=== PATIENT | female | born 1950 | race Caucasian/White ===

== ENCOUNTER → 2016-09-11 | Outpatient (CLI) | payer MEDICARE, OTHER ==
[2016-09-11 14:25] LABS: Basophils # (A) 0.1 k/uL (0-0.2); Basophils % (A) 1 %; CH 28.5; CHCM 31.6; Eosinophils # (A) 0.3 k/uL (0-0.7); Eosinophils % (A) 3 %; HCT 44.4 % (34.0-46.0); HDW 2.35; HGB 14.1 gm/dL (11.4-16.0); Luc # (Auto) 0.15; Luc % (Auto) 2; Lymphocytes # (A) 2.5 k/uL (1.0-4.8); Lymphocytes % (A) 25 %; MCH 28.7 pg (25.0-35.0); MCHC 31.7 g/dL (31.0-37.0); MCV 90.6 fL (80.0-100.0); Monocytes # (A) 0.4 k/uL (0-1.0); Monocytes % (A) 4 %; Neutrophils # (A) 6.6 k/uL (1.3-7.7); Neutrophils % (A) 66 %; RDW 12.8 % (11.5-15.5); WBC 10.1 k/uL (3.8-10.6); WBC (Perox) 10.36
== END | disposition home or self-care (01) ==
LOC: LABPAT 13:43
PROVIDERS: ATTEND Obstetrics & Gynecology
DX: Z01.810 Encounter for preprocedural cardiovascular examination (principal); N95.0 Postmenopausal bleeding; I10 Essential (primary) hypertension
CPT/HCPCS: 85025; 93005

== ENCOUNTER → 2016-09-18 | Day surgery (SDC) | payer MEDICARE, OTHER ==
[2016-09-10 16:19] VITALS: BMI 49.5
[~2016-09-18] MED LIST: DEXAMETHASONE SOD PHOSPHATE 10 MG/ML 1 ML VIAL IV ONE; HYDROmorphone 1 MG/ML 1 ML SYRINGE IVP PRN; KETOROLAC 30 MG/ML 1 ML VIAL ONE; LACTATED RINGERS 1,000 ML IV ONE; LACTATED RINGERS 1,000 ML IV SCH; LIDOCAINE 1% 20 ML VIAL (10MG/ML) FOR IV START SQ ONE; LIDOCAINE 1% INJ 10MG/ML (20 ML MDV) ONE; MIDAZOLAM 2 MG/2 ML VIAL IV PRN; MIDAZOLAM 2 MG/2 ML VIAL ONE; ONDANSETRON 4 MG/2 ML VIAL IVP ONE; PROPOFOL 10 MG/ML 20 ML VIAL IV ONE; Pre Op ABX Message 1 EACH MISC MISCELLANE ONE; SCOPOLAMINE 1.5MG/72HR PATCH TRANSDERM ONE; SUCCINYLCHOLINE CHLORIDE 100 MG/5 ML SYR IV ONE; fentaNYL (PF) 50 MCG/ML 2 ML AMP ONE
[2016-09-18 10:01] LABS: Glucose,Whole Blood 112 mg/dL (75-99)
--- NOTE | 2016-09-18 10:36 | P.OP ---
Date of Procedure: 09/18/16 Preoperative Diagnosis: Postmenopausal bleeding, multiple medical problems. Postoperative Diagnosis: Pathology pending, multiple endometrial polyps. Procedure(s) Performed: Hysteroscopy, fractional D&C Anesthesia: GETA Surgeon: Sravani Suazo Finance Effectiveness Manager #1: Stated None Estimated Blood Loss (ml): 10 IV fluids (ml): 500 Urine output (ml): 100 Pathology: other (Endometrial curettings, endocervical curettings.) Condition: stable Disposition: PACU Description of Procedure: Patient is brought to the operative suite where a general anesthetic is administered without difficulty. She's placed in the dorsal lithotomy position. General anesthetic is given without difficulty per the anesthesia staff. The cervix, vagina, perineum and periurethral areas are all prepped and draped in usual sterile fashion. The appropriate timeout is performed to assure proper patient and procedural identification. The bladder is drained for approximately 100 mL of clear yellow urine. Examination under anesthesia reveals a small anteverted uterus, negative adnexa bilaterally. Weighted speculum was placed into the vagina. The anterior lip of the cervix is grasped gently with an Allis clamp. Endocervical curettage is performed and sent to pathology under separate cover, for scant amount of tissue. Uterus is then sounded to a depth of 9 cm in the anteverted position. Cervix is gently and systematically dilated with Hanks dilators to 12 mm. Hysteroscope is then introduced, fluid is infused, cavity is distended. Upon inspecting the endometrial cavity, multiple small fleshy smooth polyps are noted. The hysteroscope was removed. The cervix is then dilated to 18 mm. A medium sharp curette is used and the polyps are removed and sent to pathology under separate cover for evaluation. Polyp forceps are introduced to assure no remaining tissue. Hysteroscope was once again placed, cavity is distended and inspected, and noted to be clear of all polyps and tissue. Instrumentation is removed from the vagina. Toradol is given prior to leaving the operative suite. All sponge needle and enhancement counts are correct. Patient is brought back to recovery room in very good condition with stable vital signs including blood pressure 112/49, pulse 55, 98% O2 saturation. Estimated blood loss 10 mL's. Patient will follow-up with me in the office in 2 weeks. She may resume her Coumadin therapy tomorrow.
[2016-09-18 10:50] VITALS: TEMP 96.8
[2016-09-18 11:00] LABS: Glucose,Whole Blood 122 mg/dL (75-99)
[2016-09-18 11:56] VITALS: RESP 16
[2016-09-18 12:36] VITALS: PULSE 77
[2016-09-18 12:38] VITALS: BP 120/75
== END ==
LOC: OR 08:19
PROVIDERS: ATTEND Obstetrics & Gynecology
DX: N85.00 Endometrial hyperplasia, unspecified (principal); I10 Essential (primary) hypertension; E66.01 Morbid (severe) obesity due to excess calories; Z68.43 Body mass index [BMI] 50.0-59.9, adult; J45.909 Unspecified asthma, uncomplicated; E11.9 Type 2 diabetes mellitus without complications; Z79.84 Long term (current) use of oral hypoglycemic drugs; E72.12 Methylenetetrahydrofolate reductase deficiency; Z79.01 Long term (current) use of anticoagulants; Z79.899 Other long term (current) drug therapy
CPT/HCPCS: 88305; 58558; J2250; J1100; J2405; J2001; J3010; J1885; J0330; J2704

== ENCOUNTER → 2016-11-05 | Outpatient (CLI) | payer MEDICARE, OTHER ==
--- NOTE | 2016-11-06 11:51 | MM ---
Reason for exam: screening (asymptomatic). Last mammogram was performed 2 years and 5 months ago. History: Patient is postmenopausal. Physical Findings: A clinical breast exam by your physician is recommended on an annual basis and results should be correlated with mammographic findings. MG 3D Screening Mammo W/Cad Bilateral CC and MLO view(s) were taken. Prior study comparison: June 04, 2014, bilateral MG diagnostic mammo w CAD AJIT. May 31, 2011, bilateral digital screening mammo w/CAD. The breast tissue is almost entirely fat. Finding: There are a indeterminate group of microcalcifications in the central position upper quadrant of the right breast. New finding since June 04, 2014 and May 31, 2011. ASSESSMENT: Incomplete: need additional imaging evaluation, BI-RAD 0 RECOMMENDATION: Special view mammogram of the right breast. [facility] will attempt to contact patient to return for supplemental views.
== END | disposition home or self-care (01) ==
LOC: RADMAMWWP 13:33
PROVIDERS: ATTEND Obstetrics & Gynecology
DX: Z12.31 Encounter for screening mammogram for malignant neoplasm of breast (principal)
CPT/HCPCS: 77063; G0202

== ENCOUNTER → 2016-11-09 | Outpatient (CLI) | payer MEDICARE, OTHER ==
--- NOTE | 2016-11-09 09:44 | MM ---
DIAGNOSTIC RIGHT BREAST MAMMOGRAM. CLINICAL HISTORY: Abnormal screening study. REFERENCE: Previous studies dated 11/05/2016 and 06/04/2014. TECHNIQUE: A 3-D technique was utilized. FINDINGS: Breast parenchymal density is largely fatty. There are increasing microcalcifications in th e upper inner quadrant of the right breast. These are new in comparison with the 2013 study. IMPRESSION: SUSPICIOUS FINDING, RIGHT BREAST. RECOMMENDATION: STEREOTACTIC CORE BIOPSY OF THE RIGHT BREAST. SUSPICIOUS, BI-RADS 4
== END | disposition home or self-care (01) ==
LOC: RADMAMWWP 08:00
PROVIDERS: ATTEND Obstetrics & Gynecology
DX: R92.8 Other abnormal and inconclusive findings on diagnostic imaging of breast (principal)
CPT/HCPCS: G0206; G0279

== ENCOUNTER → 2016-11-13 | Day surgery (SDC) | payer MEDICARE, OTHER ==
[~2016-11-13] MED LIST changes: +BACITRACIN OINT 1 EACH PACKET TOPICAL ONE; -DEXAMETHASONE SOD PHOSPHATE 10 MG/ML 1 ML VIAL IV ONE; -HYDROmorphone 1 MG/ML 1 ML SYRINGE IVP PRN; -KETOROLAC 30 MG/ML 1 ML VIAL ONE; -LACTATED RINGERS 1,000 ML IV ONE; -LACTATED RINGERS 1,000 ML IV SCH; -LIDOCAINE 1% 20 ML VIAL (10MG/ML) FOR IV START SQ ONE; -MIDAZOLAM 2 MG/2 ML VIAL IV PRN; -MIDAZOLAM 2 MG/2 ML VIAL ONE; -ONDANSETRON 4 MG/2 ML VIAL IVP ONE; -PROPOFOL 10 MG/ML 20 ML VIAL IV ONE; -Pre Op ABX Message 1 EACH MISC MISCELLANE ONE; -SCOPOLAMINE 1.5MG/72HR PATCH TRANSDERM ONE; +SODIUM BICARB 4% 5 ML VIAL (0.48 MEQ/ML) ONE; -SUCCINYLCHOLINE CHLORIDE 100 MG/5 ML SYR IV ONE; -fentaNYL (PF) 50 MCG/ML 2 ML AMP ONE
[2016-11-13 07:37] LABS: INR 1.3 (<1.1); Prothrombin Time 12.7 sec (9.0-12.0)
--- NOTE | 2016-11-13 10:37 | PCN ---
DATE OF PROCEDURE: PREPROCEDURE DIAGNOSIS: Mammographic abnormality, right breast. POSTPROCEDURE DIAGNOSIS: Mammographic abnormality, right breast. PROCEDURE: Right breast stereotactic core biopsy. SURGEON: Rosie Decker MD PROCEDURE: Stereotactic core biopsy. PROCEDURE: The patient was taken to the stereotactic core room and the area of concern in the right breast was localized. The breast was prepped in a sterile fashion and 1% lidocaine was used to anesthetize the area of concern. Needle was driven to the correct coordinates and multiple core biopsies were obtained. Radiograph of specimen revealed the area of concern had been removed. A marking clip was left behind. Patient tolerated the procedure in stable condition. Please note, specimen was sent to pathology.
--- NOTE | 2016-11-13 15:20 | MM ---
EXAMINATION TYPE: MG stereo VAD BX RT DATE OF EXAM: 11/13/2016 9:46 AM COMPARISON: 11/09/2016 CLINICAL HISTORY: Abnormal mammogram TECHNIQUE: Stereotactic guided core biopsy of right breast. FINDINGS: The procedure of stereotactic guided core biopsy was explained to the patient. Benefits, alternatives, and risks were discussed. An informed consent was then obtained. The shortness pathway for biopsy was chosen. Shortness pathway was superior approach. Dr. Wilson performed the localization, then the surgeon, Dr. Reinier Harding performed the remainder of the procedure. A vacuum assisted biopsy gun was used to obtain multiple core samples. It was reported the patient tolerated the procedure well without any immediate complication. The patient was kept in the radiology department for short stay after the procedure and then discharged home in stable condition. Targeted calcifications are identified in specimen mammogram. Post biopsy mammogram shows the clip to appear in satisfactory position relative to the targeted area of concern on the preprocedure images. IMPRESSION: 1. SUCCESSFUL, UNCOMPLICATED STEREOTACTIC GUIDED CORE BIOPSY OF AREA OF CONCERN IN THE RIGHT BREAST, FULL PATHOLOGY RESULTS TO FOLLOW. Recommendations: 1. Recommendations are pending pathology results. 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 Recommendation Follow up mammogram of the right breast in 6 months. NILO
== END ==
LOC: RADMAMWWP 06:53
PROVIDERS: ATTEND Surgery
DX: N62 Hypertrophy of breast (principal); N64.89 Other specified disorders of breast; R92.8 Other abnormal and inconclusive findings on diagnostic imaging of breast
CPT/HCPCS: 88305; 85610; 19081; A4648; J2001

== ENCOUNTER → 2016-11-14 | Outpatient (CLI) | payer MEDICARE, OTHER ==
[2016-11-14 15:56] LABS: Basophils # (A) 0.1 k/uL (0-0.2); Basophils % (A) 1 %; CH 28.6; CHCM 31.2; Eosinophils # (A) 0.3 k/uL (0-0.7); Eosinophils % (A) 4 %; HCT 43.7 % (34.0-46.0); HDW 2.37; HGB 14.1 gm/dL (11.4-16.0); Luc # (Auto) 0.21; Luc % (Auto) 2; Lymphocytes # (A) 3.2 k/uL (1.0-4.8); Lymphocytes % (A) 36 %; MCH 29.6 pg (25.0-35.0); MCHC 32.1 g/dL (31.0-37.0); MCV 92.1 fL (80.0-100.0); Mean Platelet Volume 6.9; Monocytes # (A) 0.4 k/uL (0-1.0); Monocytes % (A) 5 %; Neutrophils # (A) 4.6 k/uL (1.3-7.7); Neutrophils % (A) 52 %; RBC 4.75 m/uL (3.80-5.40); RDW 13.2 % (11.5-15.5); WBC 8.8 k/uL (3.8-10.6); WBC (Perox) 9.01
[2016-11-14 16:18] LABS: Potassium 5.1 mmol/L (3.5-5.1)
== END | disposition home or self-care (01) ==
LOC: LABWHC1 15:18
PROVIDERS: ATTEND Obstetrics & Gynecology
DX: Z01.812 Encounter for preprocedural laboratory examination (principal)
CPT/HCPCS: 36415; 80051; 82565; 84520; 85025; 86850; 86900; 86901; 87086

== ENCOUNTER 2016-11-19 05:51 | Inpatient (IN) | payer MEDICARE, OTHER ==
[2016-11-14 12:30] VITALS: BMI 48.6
--- NOTE | 2016-11-14 18:02 | HP ---
DATE OF ADMISSION: 11/19/2016 This is a 66-year-old white female, 3, para 3-0-0-3, status post tubal ligation, who presented initially with a history of sporadic vaginal bleeding that had started in March 2016. Patient is menopausal and is not receiving hormone replacement therapy. Endometrial biopsy was performed in the office and this returned complex endometrial hyperplasia with atypia. After thorough consultation, I believe surgical palliation is in the patient's best interest. Method of hysterectomy has been discussed in detail. She has a large BMI and has had 3 previous C-sections; however, endometrial sampling in the office was obtainable. After discussion, we have elected to attempt vaginal hysterectomy. Patient understands that this may need to be converted to abdominal approach. All risks and benefits have been discussed in detail. Second opinion is offered and declined. Review of systems is otherwise negative. Past medical history is significant for: 1. Asthma. 2. Type 2 diabetes. 3. Hypertension. 4. MTHFR. PAST SURGICAL HISTORY: 1. sections x3. 2. Tubal ligation with last . 3. Right ankle surgery with pin and plates placed in year 1999. CURRENT MEDICATIONS: 1. Diltiazem hydrochlorothiazide 180 mg extended-release tablets by oral route once daily. 2. Folbic 2.5 one-half tablet by mouth twice daily. 3. Lisinopril 20 mg 1 pill twice daily. 4. Metformin 500 mg pills twice daily. 5. Metoprolol tartrate 25 mg one-half tablet by oral route twice daily. 6. Warfarin 5 mg pills one-half tablet on Saturday, Saturday, Saturday; 1 tablet on Saturday, , Saturday. ALLERGIES: NONE KNOWN. FAMILY HISTORY: Significant for heart issues, unspecified, in her brother and father, and sepsis in the past with her mother. Reproductive history is significant for sections in 1969, 1973, 1977 with tubal ligation. SOCIAL HISTORY: Patient is recently . She has never been a smoker. Alcohol socially. She denies drug use. On exam, this is a pleasant female, 5 feet 1.75 inches, 276 pounds, BMI 51. The general physical exam is within normal limits. Skin is without lesions or rashes. Neck is soft and supple with no obvious thyromegaly and good range of motion. Cardiac exam reveals regular rate and rhythm without murmur, click or rub. Chest is clear to auscultation in all kearns anteriorly and posteriorly. Breasts are bilaterally symmetric to inspection with no skin dimpling, nipple discharge, axillary adenopathy or discernible lesions or masses. Abdomen is morbidly obese. No CVA tenderness. Active bowel sounds. No obvious organosplenomegaly. On genitourinary exam, the external genitalia is normal in appearance, slightly atrophic. No discharge noted. The vaginal exam reveals no obvious cystocele or rectocele. There is a small amount of uterine descensus noted. The uterus is small, mobile, midline, non-enlarged clinically. No adnexal lesions are noted to deep palpation. Rectal exam reveals good sphincter tone, FIT-negative stool. No obvious hemorrhoids. IMPRESSION: Postmenopausal bleeding, endometrial biopsy revealing complex endometrial hyperplasia without atypia. Patient choosing surgical palliation. PLAN: Dr. Ledesma is the patient's medical doctor and is following medically. We will proceed with vaginal hysterectomy. Ovaries will be inspected and left in situ if they are within normal limits to inspection. The patient does consent to bilateral salpingo-oophorectomy if the ovaries do not appear normal to appearance. Patient understands that the vaginal approach in her situation does have its risks, including risk of bladder perforation or damage, damage to the ureters, blood vessels or rectum. If damage should occur, our plan would be to have it corrected intraoperatively. If the procedure renders itself too difficult secondary to exposure or patient's habitus, we will convert to total abdominal hysterectomy. Patient is also aware of the risks of anesthesia to include aspiration, nerve damage or even . The ACOG pamphlet on this procedure has been given to the patient for her review; all questions answered. I believe the patient understands our discussion with no reservation.
[~2016-11-19 05:51] MED LIST changes: -BACITRACIN OINT 1 EACH PACKET TOPICAL ONE; -LIDOCAINE 1% INJ 10MG/ML (20 ML MDV) ONE; -SODIUM BICARB 4% 5 ML VIAL (0.48 MEQ/ML) ONE; +ceFAZolin 3 GM in SODIUM CHLORIDE 0.9% 100 ML IVPB ONE
[2016-11-19] MEDS ORDERED: DEXAMETHASONE SOD PHOSPHATE 10 MG/ML 1 ML VIAL IV ONE (05:53)
[2016-11-19] MEDS ORDERED: ONDANSETRON 4 MG/2 ML VIAL IVP ONE (05:53)
[2016-11-19] MEDS ORDERED: MIDAZOLAM 2 MG/2 ML VIAL IV PRN (05:53)
[2016-11-19] MEDS ORDERED: LACTATED RINGERS 1,000 ML IV ONE (06:23)
[2016-11-19] MEDS ORDERED: LIDOCAINE 1% 20 ML VIAL (10MG/ML) FOR IV START INTRADERMA ONE (06:23)
[2016-11-19 06:49] LABS: Glucose,Whole Blood 133 mg/dL (75-99)
[2016-11-19] MEDS ORDERED: GLYCOPYRROLATE 0.2 MG/ML 2 ML VIAL ONE (07:00)
[2016-11-19] MEDS ORDERED: ONDANSETRON 4 MG/2 ML VIAL ONE (07:00)
[2016-11-19] MEDS ORDERED: SUCCINYLCHOLINE CHLORIDE 100 MG/5 ML SYR IV ONE (07:00)
[2016-11-19] MEDS ORDERED: MORPHINE SULFATE (PF) 0.3 MG/0.3 ML SYR ONE (07:00)
[2016-11-19] MEDS ORDERED: ROCURONIUM BROMIDE 10 MG/ML 10 ML VIAL IV ONE (07:00)
[2016-11-19] MEDS ORDERED: MIDAZOLAM 2 MG/2 ML VIAL ONE (07:00)
[2016-11-19] MEDS ORDERED: NEOSTIGMINE 1 MG/ML 10 ML VIAL ONE (07:00)
[2016-11-19] MEDS ORDERED: VASOPRESSIN 20 UNIT/ML 1 ML VIAL IM ONE (07:00)
[2016-11-19] MEDS ORDERED: ePHEDrine 50 MG/ML 1 ML AMP ONE (07:00)
[2016-11-19] MEDS ORDERED: PROPOFOL 10 MG/ML 20 ML VIAL IV ONE (07:00)
[2016-11-19] MEDS ORDERED: NALBUPHINE 10 MG/ML AMPUL IV PRN (07:22)
[2016-11-19] MEDS ORDERED: ONDANSETRON 4 MG/2 ML VIAL IVP PRN ×2 (07:22→09:41)
[2016-11-19] MEDS ORDERED: KETOROLAC 30 MG/ML 1 ML VIAL IVP PRN ×2 (07:22→09:41)
[2016-11-19] MEDS ORDERED: diphenhydrAMINE 50 MG/ML 1 ML VIAL IVP PRN ×2 (07:22→09:41)
[2016-11-19] MEDS ORDERED: NALOXONE 0.4 MG/ML 1 ML VIAL IV PRN (07:22)
[2016-11-19] MEDS: LACTATED RINGERS 1,000 ML IV SCH ×3 (08:16→23:47)
--- NOTE | 2016-11-19 09:40 | P.OP ---
Date of Procedure: 11/19/16 Preoperative Diagnosis: Complex and vitreal hyperplasia with atypia, multiple medical issues. Postoperative Diagnosis: Pathology pending Procedure(s) Performed: Vaginal hysterectomy attempted, converted to total abdominal hysterectomy, bilateral salpingo-oophorectomy Anesthesia: SALVADOR Surgeon: Sravani Suazo Reed Worker #1: Lindsay Cho Estimated Blood Loss (ml): 300 IV fluids (ml): 1,400 Urine output (ml): 75 Pathology: other (Cervix, uterus, bilateral tubes and ovaries) Condition: stable Disposition: PACU Description of Procedure: Patient is brought to the operating room where spinal with Duramorph is placed. She was then positioned in the dorsal lithotomy position. The appropriate timeout was performed to assure proper patient and procedural identification. Antibiotics are given. Sequential stockings are placed. The cervix, vagina, perineum and periurethral areas are all prepped and draped in the usual sterile fashion. Upon achieving lithotomy position, a large amount of loose stool is produced. The perineal body is again prepped thoroughly and draped in a sterile fashion. The bladder is drained for approximately 75 mL of clear yellow urine. Weighted speculum was placed into the vagina. The cervix is visualized and brought into the operative field. It is injected circumferentially with a dilute Pitressin solution. A [place] blade scalpel is used to incise the mucosa circumferentially with V like positioning in the back. A sponge rolled finger is used to sweep the mucosa from the underlying fascial plane, at all times being mindful of keeping the bladder and ureters well out of the operative field. Posterior peritoneum is entered and the large billed speculum was placed. Peritoneum is suture tied with 2-0 Vicryl and held with a hemostat at 6 :00. The right uterosacral cardinal ligament complex is identified, clamped cut and held laterally with a hemostat. The left uterosacral cardinal ligament is approached in the same fashion. Uterine vasculature is next identified, isolated, clamped cut and suture ligated. There is very little uterine descensus. Additional pedicles are taken superior to the vessels. I am unable to reach the fundus of the uterus vaginally, the tissues are very high in the peritoneal cavity. Exposure is extremely difficult. My concern is truncating the cervix from the uterine specimen. After additional times at visualization, the decision is made to proceed with total abdominal hysterectomy. The case was therefore converted. The patient's legs are taken down from the lithotomy position. Bingham catheter is placed in the urine is clear. The abdomen is reprepped and draped in usual sterile fashion. A low transverse skin incision is made in this is carried down through the subcutaneous tissue which is approximately 10 cm deep. Fascia is isolated, scored and extended bilaterally with curved Carpenter scissors. Peritoneum is next identified and incised, there is no bowel or bladder involvement. The large disposable ring retractor is placed. The O'Kevin-O' Sue retractors placed on top of this, the bowel was carefully packed well from the operative field. The uterine specimen is identified, clamped bilaterally with [place]am clamps. The round ligaments are identified, clamped cut and suture ligated. The tissues are quite friable. The infundibulopelvic ligaments are next identified through the clear space, care is taken to remove the tubes and ovaries as well. Ovaries appear atrophic to inspection. Metzenbaum scissors are used to sweep the bladder well from the anterior uterine body. 2 additional pedicles are taken, and the cervix and uterus as well as tubes and ovaries are removed and sent to pathology for evaluation. The vagina is closed in a running stitch of 0 Vicryl suture. At this time all pedicles are re-inspected and noted to be hemostatically intact. The pelvis was generously irrigated, noted to be clean and dry. Peritoneum was allowed to close by secondary intention. Fascia is closed in a running stitch of 0 Vicryl with over ligation in the midline. Subcutaneous tissue is deep, it is really inspected carefully and noted to be clean and dry. It is reapproximated with 2-0 Vicryl in a running fashion. 4-0 undyed Vicryl in subcuticular manner is placed for final skin closure. Steri-Strips and Mastisol are applied to the wound. Vital signs are stable upon completion of our procedure. At this time the patient is once again placed in lithotomy position. The vaginal cuff is reinspected, noted to be clean and dry. Again, Bingham catheter is draining clear urine. All vital signs are stable including blood pressure 102/53, pulse 65, 96% O2 saturation. All sponge needle and enhancement counts are correct. I will consult Dr. Ledesma to assist us in postoperative management of this patient for her multiple medical issues.
[2016-11-19] MEDS ORDERED: IBUPROFEN 600 MG TAB PO PRN (09:41)
[2016-11-19] MEDS ORDERED: ZOLPIDEM 5 MG TAB PO PRN (09:41)
[2016-11-19] MEDS ORDERED: SIMETHICONE 80 MG CHEWABLE PO PRN (09:41)
[2016-11-19] MEDS ORDERED: ALBUTEROL NEBULIZED 2.5 MG/3 ML INHALATION PRN (14:06)
[2016-11-19] MEDS ORDERED: ALPRAZolam 0.25 MG TAB PO PRN (14:06)
--- NOTE | 2016-11-19 14:10 | P.CONS ---
History of Present Illness - Reason for Consult Consult date: 11/19/16 Medical management - History of Present Illness This is an 66-year-old female patient of Dr. Ledesma with a past medical history of MTHFR gene mutation, asthma, diabetes mellitus type 2, hypertension. Patient is status post abdominal total hysterectomy with bilateral salpingo-oophorectomy by Dr. Suazo. Patient is seen shortly after surgery and has had no postop complications at this point. She is feeling tired. We will plan to resume her on Coumadin and Lovenox today if okay with Dr. Suazo. Review of Systems All systems: negative Constitutional: Reports fatigue, Denies chills, Denies fever Eyes: denies blurred vision, denies pain Ears, nose, mouth and throat: Denies headache, Denies sore throat Cardiovascular: Denies chest pain, Denies shortness of breath Respiratory: Denies cough Gastrointestinal: Denies abdominal pain, Denies diarrhea, Denies nausea, Denies vomiting Genitourinary: Denies dysuria, Denies hematuria Musculoskeletal: Denies myalgias Integumentary: Denies pruritus, Denies rash Neurological: Denies numbness, Denies weakness Psychiatric: Denies anxiety, Denies depression Endocrine: Denies fatigue, Denies weight change Past Medical History Past Medical History: Asthma, Diabetes Mellitus, Hypertension, Pulmonary Embolus (PE) Additional Past Medical History / Comment(s): MTHFR gene mutation History of Any Multi-Drug Resistant Organisms: None Reported Past Surgical History: Section, Orthopedic Surgery Additional Past Surgical History / Comment(s): RIGHT ANKLE-PINS AND PLATE Past Anesthesia/Blood Transfusion Reactions: No Reported Reaction Additional Past Anesthesia/Blood Transfusion Reaction / Comm: no hx blood transfusion Past Psychological History: No Psychological Hx Reported Smoking Status: Never smoker Past Alcohol Use History: Rare Additional Past Alcohol Use History / Comment(s): Patient denies any history of smoking, medical marijuana, marijuana, street drug or alcohol use. 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 Past Drug Use History: None Reported - Past Family History Mother Family Medical History: No Reported History Additional Family Medical History / Comment(s): Mother at age 88 from sepsis. Brother(s) Family Medical History: Myocardial Infarction (ND) Additional Family Medical History / Comment(s): Brother at age 49 from myocardial infarction. Father Additional Family Medical History / Comment(s): Father at age 57 from a myocardial infarction. Sister(s) Additional Family Medical History / Comment(s): He has one sister alive but has never been tested for MTHFR gene mutation. Son(s) Additional Family Medical History / Comment(s): She has 2 sons and 1 daughter with no major medical problems. Medications and Allergies Home Medications Medication Instructions Recorded Confirmed Type Yvepbmzxalwews-DH-Dnzgwzptdc 1 tab PO HS 09/10/16 11/14/16 History [Folbic] Diltiazem Cd [Cardizem Cd] 180 mg PO QAM 09/10/16 11/14/16 History Lisinopril [Prinivil] 20 mg PO BID 09/10/16 11/14/16 History Metoprolol Tartrate [Lopressor] 12.5 mg PO BID 09/10/16 11/14/16 History Warfarin [Coumadin] 2.5 mg PO SUTUTHSA 09/10/16 11/14/16 History Warfarin [Coumadin] 5 mg PO MOWEFR 09/10/16 11/14/16 History metFORMIN HCL [Glucophage] 500 mg PO BID 09/10/16 11/14/16 History Albuterol Inhaler [Ventolin Hfa 1 - 2 puff INHALATION Q6HR PRN 09/11/16 History Inhaler] ALPRAZolam [Xanax] 0.25 mg PO TID PRN 09/13/16 11/14/16 History Enoxaparin [Lovenox] 120 mg SQ Q12H 11/14/16 11/19/16 History Allergies Allergy/AdvReac Type Severity Reaction Status Date / Time No Known Allergies Allergy Verified 11/14/16 12:04 Physical Exam Vitals: Vital Signs Temp Pulse Pulse Resp BP Pulse Ox 11/19/16 10:17 70 16 102/51 98 11/19/16 10:02 68 14 96/54 98 11/19/16 09:47 73 14 99/40 98 11/19/16 09:30 97.2 F L 74 14 117/59 95 11/19/16 06:16 97.9 F 77 18 115/73 97 Intake and Output 04/23/17 04/24/17 04/24/17 22:59 06:59 14:59 Intake Total 100 1700 Output Total 375 Balance 100 1325 Intake: IV 100 1700 Output: Urine 75 Estimated Blood Loss 300 Gen: This is a 66-year-old female. She is in bed and appears to be in no acute distress. HEENT: Head is atraumatic, normocephalic. Pupils equal, round. Sclerae is anicteric. Conjunctivae slightly pale. Mucous mouth are dry. NECK: Supple. No JVD. No lymphadenopathy. No thyromegaly. LUNGS: Clear to auscultation. No wheezes or rhonchi. No intercostal retractions. HEART: Regular rate and rhythm. No murmur. ABDOMEN: Soft. Bowel sounds are present. No masses. Mild tenderness. EXTREMITIES: No pedal edema. No calf tenderness. NEUROLOGICAL: Patient is awake, alert and oriented x3. Cranial nerves 2 through 12 are grossly intact. Results Labs: Abnormal Lab Results - Last 24 Hours (Table) 11/19/16 Range/Units 06:37 POC Glucose (mg/dL) 133 H (75-99) mg/dL Assessment and Plan Plan: 1. Abnormal vaginal bleeding status post total abdominal hysterectomy and salpingo-oophorectomy. Continue current pain management. Continue activity per surgeon. 2. MTHFR gene mutation with prior history of pulmonary embolus. Patient will be resumed back on Lovenox and Coumadin. Recheck PT/INR in the morning. Patient has been encouraged to have her children tested for MTHFR gene mutation. 3. Hypertension. Continue lisinopril 20 mg twice daily to be resumed tonight, metoprolol 12.5 mg twice daily, Cardizem CD 180 mg daily. 4. Diabetes mellitus type II. Continue metformin. 5. Asthma, mild intermittent. Continue albuterol inhaler as needed. 6. DVT prophylaxis. Lovenox and Coumadin. 7. Gastrointestinal prophylaxis, Pepcid. Discharge plan: Return home Impression and plan of care have been directed as dictated by the signing physician. Emma Lopes nurse practitioner acting as scribe for signing physician. Time with Patient: Greater than 30
[2016-11-19 14:59] LABS: INR 1.1 (<1.1); Prothrombin Time 10.6 sec (9.0-12.0)
[2016-11-19] MEDS: ENOXAPARIN 120 MG/0.8 ML SYRINGE SQ SCH (16:57)
[2016-11-19] MEDS: metFORMIN 500 MG TAB PO SCH (16:57)
[2016-11-19] MEDS: WARFARIN 5 MG TAB PO SCH (18:00)
[2016-11-20] MEDS: LISINOPRIL 20 MG TAB PO SCH ×3 (03:55→21:18)
[2016-11-20] MEDS: METOPROLOL TARTRATE 12.5 MG TAB PO SCH ×3 (03:55→21:17)
[2016-11-20 06:57] LABS: Basophils % (A) 0 %; CH 28.8; CHCM 31.4; Eosinophils % (A) 0 %; HCT 32.3 % (34.0-46.0); HDW 2.26; Luc # (Auto) 0.11; Luc % (Auto) 1; Lymphocytes # (A) 1.6 k/uL (1.0-4.8); Lymphocytes % (A) 14 %; MCH 29.5 pg (25.0-35.0); MCV 92.2 fL (80.0-100.0); Mean Platelet Volume 7.4; Monocytes # (A) 0.6 k/uL (0-1.0); Monocytes % (A) 5 %; Neutrophils # (A) 8.7 k/uL (1.3-7.7); Neutrophils % (A) 80 %; RBC 3.51 m/uL (3.80-5.40); RDW 13.4 % (11.5-15.5); WBC 10.9 k/uL (3.8-10.6); WBC (Perox) 10.94
[2016-11-20 07:10] LABS: HGB 10.4 gm/dL (11.4-16.0)
[2016-11-20] MEDS: metFORMIN 500 MG TAB PO SCH ×2 (07:11→17:30)
[2016-11-20 07:19] LABS: INR 1.1 (<1.1); Prothrombin Time 11.1 sec (9.0-12.0)
[2016-11-20] MEDS: DILTIAZEM CD 180 MG CAP.ER.24H PO SCH (08:39)
--- NOTE | 2016-11-20 08:55 | P.PN ---
Progress Note - Text 0750 Anesthesia POD 1. Patient is status post vaginal hysterectomy converted to total abdominal hysterectomy under spinal anesthesia initially, converted to general anesthesia with intra-thecal preservative free morphine 300 g. No pruritus, slump post-op analgesia, and headache or other complication.
[2016-11-20] MEDS: ENOXAPARIN 120 MG/0.8 ML SYRINGE SQ SCH ×2 (08:56→21:18)
--- NOTE | 2016-11-20 10:48 | P.PN ---
Subjective Principal diagnosis: post op day #1 slept welll. (+) flatus. Minimal vaginal bleeding. No pain. Objective - Vital Signs Vital signs: Vital Signs Temp 97.8 F 11/20/16 07:00 Pulse 73 11/20/16 07:00 Resp 18 11/20/16 07:00 BP 111/42 11/20/16 09:34 Pulse Ox 93 L 11/20/16 08:00 Intake & Output 11/19/16 11/20/16 11/20/16 18:59 06:59 18:59 Intake Total 1820 600 Output Total 375 600 Balance 1445 0 Weight 124.738 kg Intake: IV 1700 Oral 120 600 Output: Urine 75 600 Estimated Blood Loss 300 Other: Voiding Method Indwelling Catheter Indwelling Catheter - Constitutional General appearance: Present: average body habitus, cooperative, morbidly obese - EENT Eyes: Present: PERRLA ENT: Present: hearing grossly normal - Neck Neck: Present: normal ROM Thyroid: bilateral: normal size - Respiratory Respiratory: bilateral: CTA - Cardiovascular Rhythm: regular - Gastrointestinal General gastrointestinal: Present: normal bowel sounds, soft - Genitourinary Genitourinary Comment(s): vaginal pack removed, dry. No vaginal bleeding. - Integumentary Integumentary: Present: normal - Neurologic Neurologic: Present: CNII-XII intact - Musculoskeletal Musculoskeletal: Present: gait normal - Psychiatric Psychiatric: Present: A&O x's 3, appropriate affect, intact judgment & insight - Labs CBC & Chem 7: 11/20/16 06:38 Labs: Abnormal Lab Results - Last 24 Hours (Table) 11/20/16 Range/Units 06:38 WBC 10.9 H (3.8-10.6) k/uL RBC 3.51 L (3.80-5.40) m/uL Hgb 10.4 L D (11.4-16.0) gm/dL Hct 32.3 L (34.0-46.0) % Neutrophils # 8.7 H (1.3-7.7) k/uL Assessment and Plan Plan: Continue postoperative care. Advanced regular diet. Patient may shower. Likely discharge home tomorrow. Time with Patient: Less than 30
[2016-11-20] MEDS ORDERED: ACETAMINOPHEN TAB 500 MG TAB PO PRN (11:47)
--- NOTE | 2016-11-20 12:49 | P.PN ---
Subjective This is an 66-year-old female patient of Dr. Ledesma with a past medical history of MTHFR gene mutation, asthma, diabetes mellitus type 2, hypertension. Patient is status post abdominal total hysterectomy with bilateral salpingo-oophorectomy by Dr. Suazo. Patient is seen shortly after surgery and has had no postop complications at this point. She is feeling tired. We will plan to resume her on Coumadin and Lovenox today if okay with Dr. Suazo. 11/20: Patient did have low blood pressure reading and blood pressure medications were held this morning. She is ambulating in the hallway and denies any lightheadedness or dizziness. She denies any chest pain or shortness of breath. She states her abdomen is tender but pain is controlled. INR today is 1.1. She is continued on Lovenox and Coumadin. Objective - Vital Signs Vital signs: Vital Signs Temp 97.8 F 11/20/16 07:00 Pulse 73 11/20/16 07:00 Resp 18 11/20/16 07:00 BP 111/42 11/20/16 09:34 Pulse Ox 93 L 11/20/16 08:00 Intake & Output 11/19/16 11/20/16 11/20/16 18:59 06:59 18:59 Intake Total 1820 600 Output Total 375 600 Balance 1445 0 Weight 124.738 kg Intake: IV 1700 Oral 120 600 Output: Urine 75 600 Estimated Blood Loss 300 Other: Voiding Method Indwelling Catheter Indwelling Catheter - Exam Gen: This is a 66-year-old female. She is in bed and appears to be in no acute distress. HEENT: Head is atraumatic, normocephalic. Pupils equal, round. Sclerae is anicteric. Conjunctivae slightly pale. Mucous mouth are dry. NECK: Supple. No JVD. No lymphadenopathy. No thyromegaly. LUNGS: Clear to auscultation. No wheezes or rhonchi. No intercostal retractions. HEART: Regular rate and rhythm. No murmur. ABDOMEN: Soft. Bowel sounds are present. No masses. Mild tenderness. EXTREMITIES: No pedal edema. No calf tenderness. NEUROLOGICAL: Patient is awake, alert and oriented x3. Cranial nerves 2 through 12 are grossly intact. - Labs CBC & Chem 7: 11/20/16 06:38 Labs: Abnormal Lab Results - Last 24 Hours (Table) 11/20/16 Range/Units 06:38 WBC 10.9 H (3.8-10.6) k/uL RBC 3.51 L (3.80-5.40) m/uL Hgb 10.4 L D (11.4-16.0) gm/dL Hct 32.3 L (34.0-46.0) % Neutrophils # 8.7 H (1.3-7.7) k/uL Assessment and Plan Plan: 1. Abnormal vaginal bleeding status post total abdominal hysterectomy and salpingo-oophorectomy. Continue current pain management. Continue activity per surgeon. 2. MTHFR gene mutation with prior history of pulmonary embolus. Patient will be resumed back on Lovenox and Coumadin. Recheck PT/INR in the morning. Patient has been encouraged to have her children tested for MTHFR gene mutation. 3. Hypertension. Continue lisinopril 20 mg twice daily to be resumed tonight, metoprolol 12.5 mg twice daily, Cardizem CD 180 mg daily. 4. Diabetes mellitus type II. Continue metformin. 5. Asthma, mild intermittent. Continue albuterol inhaler as needed. 6. DVT prophylaxis. Lovenox and Coumadin. 7. Gastrointestinal prophylaxis, Pepcid. Discharge plan: Return home Impression and plan of care have been directed as dictated by the signing physician. Emma Lopes nurse practitioner acting as scribe for signing physician. Time with Patient: Greater than 30
[2016-11-20] MEDS: Acetaminophen-Codeine 300-30mg TAB PO PRN ×2 (16:29→21:35)
[2016-11-20] MEDS: WARFARIN 2.5 MG TAB PO SCH (18:45)
[2016-11-20] MEDS: SENNOSIDES-DOCUSATE SODIUM 1 EACH TAB PO SCH (21:17)
[2016-11-21] MEDS: Acetaminophen-Codeine 300-30mg TAB PO PRN ×5 (01:41→22:02)
--- NOTE | 2016-11-21 08:07 | P.DS ---
Providers Date of admission: 11/20/16 11:43 Expected date of discharge: 11/21/16 Attending physician: Sravani Suazo Consults: 11/19/16 09:46 Consult Physician Routine Consulting Provider: Andrei Ledesma Reason/Comments: Medical management Do you want consulting provider notified?: Yes Primary care physician: Andrei Baltazar [facility] Course: This is a 66-year-old white female who presents for hysterectomy for history of postmenopausal bleeding. D&C revealed complex endometrial hyperplasia with atypia. Patient has multiple medical problems, followed carefully by Dr. Ledesma. She does have a history of PE 2, chronic atrial fibrillation, type 2 diabetes mellitus, primary hypertension, chronic kidney disease. Preoperative clearance was given per Dr. Ledesma. Please see my admitting history and physical for details. Patient underwent vaginal hysterectomy, however the procedure had to be converted to total abdominal hysterectomy secondary to inability to properly visualize uterine structures. Patient therefore underwent total abdominal hysterectomy and bilateral salpingo-oophorectomy. She did well intraoperatively , please see my dictated operative note for details. This morning the patient is doing well. She is voiding, and bleeding, passing flatus without difficulty. Vital signs are stable and she is afebrile. Her blood pressure is somewhat low, 90s over 50[address]. Dr[address] Ledesma and Dr. Fontaine have been consulted and have been following the patient with me medically. Her incision is clean and dry, nicely intact, Steri-Strips applied. There is a minimal amount of vaginal bleeding with a few small clots noted. Patient's INR and PT PTT are being rechecked this morning as she has been replaced on her blood thinners for history of chronic afibrillation and history of PE. Postoperative hemoglobin 10.4. Chest is clear, extremities are negative, there is no CVA tenderness. Incision is clean and dry, intact with no sign of erythema or drainage. Diet has been advanced to regular. Blood sugars have been normal. Plan is for likely discharge home later today. The decision to hold antihypertensive medications will be made by Dr. Fontaine, however I feel it is reasonable to hold them for 1 week. Patient does have a blood pressure cuff at home and is aware of how to use it. I have reminded her at this point note intercourse, tampons or douching. No heavy lifting. No vacuuming. No driving for 2 weeks. She will resume her home medications with changes made per medical team. I will see her in the office in 2 weeks. She will call with any copious vaginal bleeding or drainage, with any redness or drainage of the incision, with any pain not alleviated by Tylenol No. 3, or indeed with any concerns. I have given her prescription for Tylenol 3 #30, sig one to 2 by mouth every 4 hours when necessary moderate to severe pain. Pathology report on the uterine specimen at this time is pending. Patient Condition at Discharge: Good Plan - Discharge Summary Discharge Medication List Fqilkpvbgivsyx-SG-Ywaeeeqllt [Folbic] 1 tab PO HS 09/10/16 [History] Diltiazem Cd [Cardizem Cd] 180 mg PO QAM 09/10/16 [History] Lisinopril [Prinivil] 20 mg PO BID 09/10/16 [History] Metoprolol Tartrate [Lopressor] 12.5 mg PO BID 09/10/16 [History] Warfarin [Coumadin] 2.5 mg PO SUTUTHSA 09/10/16 [History] Warfarin [Coumadin] 5 mg PO MOWEFR 09/10/16 [History] metFORMIN HCL [Glucophage] 500 mg PO BID 09/10/16 [History] Albuterol Inhaler [Ventolin Hfa Inhaler] 1 - 2 puff INHALATION RT-Q6H PRN [History] ALPRAZolam [Xanax] 0.25 mg PO TID PRN 09/13/16 [History] Enoxaparin [Lovenox] 120 mg SQ Q12H 11/14/16 [History] Follow up Appointment(s)/Referral(s): Sravani Suazo MD [STAFF PHYSICIAN] - 2 Weeks
[2016-11-21 08:27] LABS: INR 1.2 (<1.1); Prothrombin Time 12.1 sec (9.0-12.0)
[2016-11-21 09:13] LABS: Basophils # (A) 0.1 k/uL (0-0.2); Basophils % (A) 1 %; CHCM 31.7; Eosinophils # (A) 0.2 k/uL (0-0.7); Eosinophils % (A) 2 %; HCT 33.5 % (34.0-46.0); HDW 2.31; HGB 10.9 gm/dL (11.4-16.0); Luc % (Auto) 1; Lymphocytes # (A) 2.6 k/uL (1.0-4.8); Lymphocytes % (A) 28 %; MCHC 32.5 g/dL (31.0-37.0); MCV 92.2 fL (80.0-100.0); Mean Platelet Volume 7.5; Monocytes # (A) 0.6 k/uL (0-1.0); Monocytes % (A) 6 %; Neutrophils # (A) 5.8 k/uL (1.3-7.7); Neutrophils % (A) 63 %; RBC 3.63 m/uL (3.80-5.40); RDW 13.5 % (11.5-15.5); WBC 9.2 k/uL (3.8-10.6)
[2016-11-21 09:40] LABS: Troponin I <0.012 ng/mL (0.000-0.034)
[2016-11-21 09:47] LABS: Creatine Kinase MB 8.9 ng/mL (0.0-2.4)
[2016-11-21] MEDS: ENOXAPARIN 120 MG/0.8 ML SYRINGE SQ SCH ×2 (10:06→22:01)
[2016-11-21] MEDS: metFORMIN 500 MG TAB PO SCH ×2 (10:06→17:41)
[2016-11-21] MEDS: METOPROLOL TARTRATE 12.5 MG TAB PO SCH ×2 (10:07→22:01)
[2016-11-21] MEDS: LISINOPRIL 20 MG TAB PO SCH ×2 (10:07→19:38)
[2016-11-21] MEDS: SENNOSIDES-DOCUSATE SODIUM 1 EACH TAB PO SCH ×2 (10:16→22:02)
[2016-11-21] MEDS ORDERED: SODIUM CHLORIDE 0.9% 500 ML IV ONE (10:45)
--- NOTE | 2016-11-21 13:34 | P.PN ---
Subjective This is an 66-year-old female patient of Dr. Ledesma with a past medical history of MTHFR gene mutation, asthma, diabetes mellitus type 2, hypertension. Patient is status post abdominal total hysterectomy with bilateral salpingo-oophorectomy by Dr. Suazo. Patient is seen shortly after surgery and has had no postop complications at this point. She is feeling tired. We will plan to resume her on Coumadin and Lovenox today if okay with Dr. Suazo. 11/20: Patient did have low blood pressure reading and blood pressure medications were held this morning. She is ambulating in the hallway and denies any lightheadedness or dizziness. She denies any chest pain or shortness of breath. She states her abdomen is tender but pain is controlled. INR today is 1.1. She is continued on Lovenox and Coumadin. 11/21: Patient's heart rate was 129 this morning with blood pressure of 90/53. EKG showed atrial fibrillation. Patient does state she has a history of irregular heartbeat and that's why she is on metoprolol. She is a known left bundle branch block and has followed with Dr. Gilmore in the past. Patient will be given a fluid bolus of 500 mL, her morning metoprolol was given and repeat heart rate was improved. Requesting that patient be monitored overnight. Objective - Vital Signs Vital signs: Vital Signs Temp 97.6 F 11/21/16 08:15 Pulse 129 H 11/21/16 08:15 Resp 16 11/21/16 08:15 BP 90/53 11/21/16 08:15 Pulse Ox 97 11/21/16 08:15 Intake & Output 11/20/16 11/21/16 11/21/16 18:59 06:59 18:59 Intake Total 600 Output Total 300 Balance 300 Intake: Oral 600 Output: Urine 300 Other: # Voids 2 1 - Exam Gen: This is a 66-year-old female. She is in bed and appears to be in no acute distress. HEENT: Head is atraumatic, normocephalic. Pupils equal, round. Sclerae is anicteric. Conjunctivae slightly pale. Mucous mouth are dry. NECK: Supple. No JVD. No lymphadenopathy. No thyromegaly. LUNGS: Clear to auscultation. No wheezes or rhonchi. No intercostal retractions. HEART: Regular rate and rhythm. No murmur. ABDOMEN: Soft. Bowel sounds are present. No masses. Mild tenderness. EXTREMITIES: No pedal edema. No calf tenderness. NEUROLOGICAL: Patient is awake, alert and oriented x3. Cranial nerves 2 through 12 are grossly intact. - Labs CBC & Chem 7: 11/21/16 07:26 Labs: Abnormal Lab Results - Last 24 Hours (Table) 11/21/16 11/21/16 11/21/16 Range/Units 07:26 07:26 07:26 RBC 3.63 L (3.80-5.40) m/uL Hgb 10.9 L (11.4-16.0) gm/dL Hct 33.5 L (34.0-46.0) % PT 12.1 H (9.0-12.0) sec CK-MB (CK-2) 8.9 H* (0.0-2.4) ng/mL Assessment and Plan Plan: 1. Abnormal vaginal bleeding status post total abdominal hysterectomy and salpingo-oophorectomy. Continue current pain management. Continue activity per surgeon. 2. MTHFR gene mutation with prior history of pulmonary embolus. Patient will be resumed back on Lovenox and Coumadin. Recheck PT/INR in the morning. Patient has been encouraged to have her children tested for MTHFR gene mutation. 3. Hypertension. Continue lisinopril 20 mg twice daily to be resumed tonight, metoprolol 12.5 mg twice daily, Cardizem CD 180 mg daily. 4. Diabetes mellitus type II. Continue metformin. 5. Asthma, mild intermittent. Continue albuterol inhaler as needed. 6. DVT prophylaxis. Lovenox and Coumadin. 7. Gastrointestinal prophylaxis, Pepcid. Discharge plan: Return home Impression and plan of care have been directed as dictated by the signing physician. Emma Lopes nurse practitioner acting as scribe for signing physician. Time with Patient: Greater than 30
[2016-11-21] MEDS: DILTIAZEM CD 180 MG CAP.ER.24H PO SCH (17:41)
[2016-11-21] MEDS: WARFARIN 5 MG TAB PO SCH (18:01)
[2016-11-21] MEDS: SODIUM CHLORIDE 0.9% 1,000 ML IV SCH (21:00)
[2016-11-21 21:41] LABS: Glucose,Whole Blood 143 mg/dL (75-99)
[2016-11-22] MEDS: Acetaminophen-Codeine 300-30mg TAB PO PRN ×3 (05:34→23:19)
[2016-11-22 06:15] LABS: Glucose,Whole Blood 131 mg/dL (75-99)
[2016-11-22] MEDS: LACTATED RINGERS 1,000 ML IV SCH (06:19)
[2016-11-22 06:25] LABS: CH 28.7; CHCM 30.5; HCT 31.5 % (34.0-46.0); HDW 2.22; HGB 9.8 gm/dL (11.4-16.0); Hypochromasia Slight; MCH 29.6 pg (25.0-35.0); MCHC 31.2 g/dL (31.0-37.0); MCV 94.9 fL (80.0-100.0); Mean Platelet Volume 7.5; RBC 3.32 m/uL (3.80-5.40); RDW 13.6 % (11.5-15.5); WBC 10.4 k/uL (3.8-10.6)
[2016-11-22] MEDS: metFORMIN 500 MG TAB PO SCH ×2 (06:51→17:26)
--- NOTE | 2016-11-22 07:48 | P.PN ---
Subjective Principal diagnosis: Postoperative day #3 This morning patient is feeling well. She has periods of fatigue. There is mild to moderate vaginal drainage, serosanguineous. Pain is well controlled. Objective - Vital Signs Vital signs: Vital Signs Temp 97.6 F 11/22/16 04:00 Pulse 100 11/22/16 04:00 Resp 16 11/22/16 04:00 BP 95/64 11/22/16 04:00 Pulse Ox 97 11/22/16 04:00 Intake & Output 11/21/16 11/22/16 11/22/16 18:59 06:59 18:59 Intake Total 637.5 Balance 637.5 Weight 130 kg Intake: IV 637.5 Sodium Chloride 0.9% 1, 637.5 000 ml @ 75 mls/hr IV . [id number] [facility] Rx#:[id number] Other: Voiding Method Toilet # Voids 2 - Constitutional General appearance: Present: morbidly obese - EENT Eyes: Present: PERRLA ENT: Present: hearing grossly normal - Neck Neck: Present: normal ROM Thyroid: bilateral: normal size - Respiratory Respiratory: bilateral: CTA - Cardiovascular Details: atrial fibrillation Rhythm: other - Gastrointestinal General gastrointestinal: Present: normal bowel sounds - Genitourinary Genitourinary Comment(s): Mild to moderate serosanguineous flow. - Integumentary Integumentary Comment(s): Low transverse incision clean and dry, well approximated. - Neurologic Neurologic: Present: CNII-XII intact - Musculoskeletal Musculoskeletal: Present: gait normal, strength equal bilaterally - Psychiatric Psychiatric: Present: A&O x's 3, appropriate affect, intact judgment & insight - Labs CBC & Chem 7: 11/22/16 05:47 Labs: Abnormal Lab Results - Last 24 Hours (Table) 11/21/16 11/21/16 11/21/16 Range/Units 07:26 07:26 07:26 RBC 3.63 L (3.80-5.40) m/uL Hgb 10.9 L (11.4-16.0) gm/dL Hct 33.5 L (34.0-46.0) % PT 12.1 H (9.0-12.0) sec POC Glucose (mg/dL) (75-99) mg/dL CK-MB (CK-2) 8.9 H* (0.0-2.4) ng/mL 11/21/16 11/22/16 11/22/16 Range/Units 21:19 05:47 06:04 RBC 3.32 L (3.80-5.40) m/uL Hgb 9.8 L (11.4-16.0) gm/dL Hct 31.5 L (34.0-46.0) % PT (9.0-12.0) sec POC Glucose (mg/dL) 143 H 131 H (75-99) mg/dL CK-MB (CK-2) (0.0-2.4) ng/mL Assessment and Plan Plan: Cardiology consult this morning. Continue medical management. Time with Patient: Less than 30
[2016-11-22 08:18] LABS: Calcium 8.7 mg/dL (8.4-10.2); Potassium 4.3 mmol/L (3.5-5.1)
--- NOTE | 2016-11-22 08:36 | P.CRDCN ---
History of Present Illness Consult date: 11/22/16 Requesting physician: Cari Fontaine Consult reason: atrial fibrillation Chief complaint: Post hysterectomy History of present illness: This is a pleasant 66-year-old female with history of hypertension, diabetes, MTHFR gene mutation, paroxysmal atrial fibrillation, prior pulmonary embolisms, asthma, who is status post total abdominal hysterectomy with bilateral salpingo-oophorectomy by . Patient had no major postoperative complications, was noted yesterday that the patient's blood pressure was running low, 88-90 systolic. EKG showed atrial fibrillation with a rapid ventricular response. For this reason the patient was transferred to the telemetry unit and a cardiology consultation was requested. On my examination this morning, patient continues to be in atrial fibrillation with a heart rate of 110. She is currently on Cardizem CD 180 daily along with metoprolol tartrate 12-1/2 mg one tablet by mouth twice a day. The patient does take Coumadin at home for anticoagulation because of her prior PEs, she is currently on Lovenox bridge along with Coumadin. Blood pressure this morning 95 /60 with a heart rate of 110. WBC 10.4, hemoglobin 9.8, hematocrit 31.5. Troponin 0.012. INR yesterday was 1.2 today's is pending. Chest x-ray, no electrolytes. The patient was seen and examined, overall feels well, complains of feeling mildly tired. Denies any palpitations, no shortness of breath or dizziness. Patient continues to be in atrial fibrillation with a left bundle branch block pattern, she was in a normal sinus rhythm. Patient is quite anxious, she did recently lose her and this is playing a role as well. Past Medical History Past Medical History: Asthma, Diabetes Mellitus, Hypertension, Pulmonary Embolus (PE) Additional Past Medical History / Comment(s): MTHFR gene mutation History of Any Multi-Drug Resistant Organisms: None Reported Past Surgical History: Section, Orthopedic Surgery Additional Past Surgical History / Comment(s): RIGHT ANKLE-PINS AND PLATE Past Anesthesia/Blood Transfusion Reactions: No Reported Reaction Additional Past Anesthesia/Blood Transfusion Reaction / Comment(s): no hx blood transfusion Past Psychological History: No Psychological Hx Reported Smoking Status: Never smoker Past Alcohol Use History: Rare Additional Past Alcohol Use History / Comment(s): Patient denies any history of smoking, medical marijuana, marijuana, street drug or alcohol use. 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 Past Drug Use History: None Reported - Past Family History Mother Family Medical History: No Reported History Additional Family Medical History / Comment(s): Mother at age 88 from sepsis. Brother(s) Family Medical History: Myocardial Infarction (VT) Additional Family Medical History / Comment(s): Brother at age 49 from myocardial infarction. Father Additional Family Medical History / Comment(s): Father at age 57 from a myocardial infarction. Sister(s) Additional Family Medical History / Comment(s): He has one sister alive but has never been tested for MTHFR gene mutation. Son(s) Additional Family Medical History / Comment(s): She has 2 sons and 1 daughter with no major medical problems. Medications and Allergies Home Medications Medication Instructions Recorded Confirmed Type Catoaavkcxdzxz-EH-Acrstzwyfn 1 tab PO HS 09/10/16 11/20/16 History [Folbic] Diltiazem Cd [Cardizem Cd] 180 mg PO QAM 09/10/16 11/20/16 History Lisinopril [Prinivil] 20 mg PO BID 09/10/16 11/20/16 History Metoprolol Tartrate [Lopressor] 12.5 mg PO BID 09/10/16 11/20/16 History Warfarin [Coumadin] 2.5 mg PO SUTUTHSA 09/10/16 11/20/16 History Warfarin [Coumadin] 5 mg PO MOWEFR 09/10/16 11/20/16 History metFORMIN HCL [Glucophage] 500 mg PO BID 09/10/16 11/20/16 History Albuterol Inhaler [Ventolin Hfa 1 - 2 puff INHALATION RT-Q6H PRN 09/11/16 History Inhaler] ALPRAZolam [Xanax] 0.25 mg PO TID PRN 09/13/16 11/20/16 History Enoxaparin [Lovenox] 120 mg SQ Q12H 11/14/16 11/20/16 History Allergies Allergy/AdvReac Type Severity Reaction Status Date / Time No Known Allergies Allergy Verified 11/14/16 12:04 Physical Exam Vitals: Vital Signs Temp Pulse Resp BP BP BP Pulse Ox 11/22/16 04:00 97.6 F 100 16 95/64 97 11/22/16 00:00 98.1 F 108 H 16 106/50 99 11/21/16 21:30 98.1 F 112 H 16 100/75 95 11/21/16 20:17 97.4 F L 105 H 21 98/60 94 L 11/21/16 20:01 134 H 11/21/16 20:00 86 18 98/60 88/56 94 L 11/21/16 17:09 98.4 F 94 22 115/64 96 11/21/16 13:48 94 L 11/21/16 13:30 98.1 F 106 H 16 101/63 96 Intake and Output 11/21/16 11/22/16 11/22/16 22:59 06:59 14:59 Intake Total 637.5 120 Balance 637.5 120 Intake: IV 637.5 Sodium Chloride 0.9% 1, 637.5 000 ml @ 75 mls/hr IV . [id number] [facility] Rx#:[id number] Oral 120 Other: Voiding Method Toilet Weight 130 kg PHYSICAL EXAMINATION: HEENT: Head is atraumatic, normocephalic. Pupils equal, round. Neck is supple. There is no elevated jugular venous pressure. HEART EXAMINATION: Heart S1 and S2 irregularly irregular CHEST EXAMINATION: Lungs are clear to auscultation and precussion. No chest wall tenderness is noted on palpation or with deep breathing. ABDOMEN: Soft, obese , nontender. Bowel sounds are heard. No organomegaly noted. Abdominal transverse incision clean and dry. EXTREMITIES: 2+ peripheral pulses with trace evidence of peripheral edema and no calf tenderness noted. NEUROLOGIC patient is awake, alert and oriented -3. . Results 11/22/16 05:47 11/22/16 05:47 Cardiac Enzymes 11/21/16 Range/Units 07:26 CK-MB (CK-2) 8.9 H* (0.0-2.4) ng/mL Troponin I <0.012 (0.000-0.034) ng/mL Coagulation 11/21/16 Range/Units 07:26 PT 12.1 H (9.0-12.0) sec CBC 11/21/16 11/22/16 Range/Units 07:26 05:47 WBC 9.2 10.4 (3.8-10.6) k/uL RBC 3.63 L 3.32 L (3.80-5.40) m/uL Hgb 10.9 L 9.8 L (11.4-16.0) gm/dL Hct 33.5 L 31.5 L (34.0-46.0) % Plt Count 246 272 (150-450) k/uL Current Medications Generic Name Dose Route Start Last Admin Trade Name Freq PRN Reason Stop Dose Admin Acetaminophen 1,000 mg 11/20/16 11:47 11/20/16 11:55 Tylenol Tab PO 1,000 mg Q6HR PRN Administration Fever and/ or Mild Pain Acetaminophen/Codeine Phosphate 2 each 11/20/16 15:17 11/22/16 05:34 Tylenol #3 PO 2 each Q4HR PRN Administration mod to severe pain Albuterol Sulfate 2.5 mg 11/19/16 14:06 Ventolin Nebulized INHALATION RT-Q6H PRN Shortness Of Breath Alprazolam 0.25 mg 11/19/16 14:06 11/21/16 18:01 Xanax PO 0.25 mg TID PRN Administration Anxiety Diltiazem HCl 180 mg 11/20/16 09:00 11/21/16 17:41 Cardizem Cd PO Not Given QAM [facility] Diphenhydramine HCl 25 mg 11/19/16 09:41 Benadryl IVP Q6HR PRN Itching Enoxaparin Sodium 120 mg 11/19/16 17:00 11/21/16 22:01 Lovenox SQ 120 mg Q12HR [facility] Administration Lactated Ringer's 1,000 mls @ 20 mls/hr 11/19/16 05:53 11/22/16 06:19 Lactated Ringers IV Not Given .Q24H [facility] Sodium Chloride 1,000 mls @ 75 mls/hr 11/21/16 20:30 11/21/16 21:00 Saline 0.9% IV 75 mls/hr .[id number] [facility] Administration Lisinopril 20 mg 11/19/16 21:00 11/21/16 19:38 Zestril PO Not Given BID [facility] Metformin HCl 500 mg 11/19/16 17:30 11/22/16 06:51 Glucophage PO 500 mg BID-W/MEALS [facility] Administration Metoprolol Tartrate 12.5 mg 11/19/16 21:00 11/21/16 22:01 Lopressor PO 12.5 mg BID [facility] Administration Nalbuphine HCl 2.5 mg 11/19/16 07:22 Nubain IV Q4HR PRN Itching Naloxone HCl 0.2 mg 11/19/16 07:22 Narcan IV Q2M PRN Opioid Reversal Ondansetron HCl 4 mg 11/19/16 09:41 Zofran IVP Q8HR PRN Nausea And Vomiting Senna/Docusate Sodium 2 each 11/20/16 21:00 11/21/16 22:02 Senokot-S PO 2 each BID [facility] Administration Simethicone 80 mg 11/19/16 09:41 Mylicon Chew PO ACHS PRN Bloating Warfarin Sodium 2.5 mg 11/20/16 18:00 11/20/16 18:45 Coumadin PO 2.5 mg [email or web address] [facility] Administration Warfarin Sodium 5 mg 11/19/16 18:00 11/21/16 18:01 Coumadin PO 5 mg [email or web address] [facility] Administration Zolpidem Tartrate 5 mg 11/19/16 09:41 Ambien PO HS PRN Insomnia Intake and Output 11/21/16 11/22/16 11/22/16 22:59 06:59 14:59 Intake Total 637.5 120 Balance 637.5 120 Intake: IV 637.5 Sodium Chloride 0.9% 1, 637.5 000 ml @ 75 mls/hr IV . [id number] [facility] Rx#:[id number] Oral 120 Other: Voiding Method Toilet Weight 130 kg 11/22/16 05:47 EKG Interpretations (text) EKG shows atrial fibrillation with a left bundle-branch block pattern Assessment and Plan Plan: Assessment and plan #1 abnormal vaginal bleeding status post total abdominal hysterectomy and salpingo-oophorectomy. #2 MTHFR gene mutation with prior history of pulmonary embolism, patient on Lovenox and Coumadin. #3 hypertension #4 atrial fibrillation with rapid ventricular response #5 history of paroxysmal atrial fibrillation #6 diabetes #7 asthma Plan We will obtain an echocardiogram with Doppler study. Continue Lovenox and Coumadin. Obtain electrolytes, mag and TSH level. We will initiate IV amiodarone per protocol , to slow down the patient's heart rate and attempt to convert to normal sinus rhythm. Further recommendations to follow. DNP note has been reviewed, I agree with a documented findings and plan of care. Patient was seen and examined.
[2016-11-22] MEDS: DILTIAZEM CD 180 MG CAP.ER.24H PO SCH (09:15)
[2016-11-22] MEDS: ENOXAPARIN 120 MG/0.8 ML SYRINGE SQ SCH ×2 (09:15→20:09)
[2016-11-22] MEDS: SENNOSIDES-DOCUSATE SODIUM 1 EACH TAB PO SCH ×2 (09:16→20:09)
[2016-11-22] MEDS: METOPROLOL TARTRATE 12.5 MG TAB PO SCH ×2 (09:16→20:09)
[2016-11-22] MEDS: LISINOPRIL 20 MG TAB PO SCH ×2 (09:24→20:10)
[2016-11-22] MEDS ORDERED: DEXTROSE 5% IN WATER 100 ML with AMIODARONE 150 MG IV ONE (09:30)
--- NOTE | 2016-11-22 09:51 | ECHOF ---
Referral Reason:afib MEASUREMENTS -------- HEIGHT: 160.0 cm WEIGHT: 129.7 kg BP: 95/64 RVIDd: 3.1 cm (< 3.3) IVSd: 1.4 cm (0.6 - 1.1) LVIDd: 4.2 cm (3.9 - 5.3) LVPWd: 1.4 cm (0.6 - 1.1) IVSs: 1.6 cm LVIDs: 3.2 cm LVPWs: 1.7 cm LA Diam: 3.3 cm (2.7 - 3.8) LAESV Index (A-L): 22.58 ml/m Ao Diam: 3.1 cm (2.0 - 3.7) AV Cusp: 2.2 cm (1.5 - 2.6) MV EXCURSION: 13.536 mm (> 18.000) MV EF SLOPE: 95 mm/s (70 - 150) EPSS: 0.4 cm RAP: 5.00 mmHg RVSP: 28.52 mmHg FINDINGS -------- Atrial fibrillation. This was a technically difficult study with suboptimal views. The left ventricular size is normal. There is moderate concentric left ventricular hypertrophy. Overall left ventricular systolic function is mild-moderately impaired with, an EF between 40 - 45 %. The right ventricle is normal in size and function. Normal LA size by volume 22+/-6 ml/m2. The right atrium is normal in size. 1.5mg of Definity was utilized for enhancement of images There is mild aortic valve sclerosis. Mild mitral annular calcification present. Mild tricuspid regurgitation present. Right ventricular systolic pressure is normal at < 35 mmHg. Trace/mild (physiologic) pulmonic regurgitation. The aortic root, ascending aorta and aortic arch are normal. The pericardium is normal. CONCLUSIONS -------- 1. Atrial fibrillation. 2. There is mild aortic valve sclerosis. 3. Mild mitral annular calcification present. 4. Mild tricuspid regurgitation present. 5. Right ventricular systolic pressure is normal at < 35 mmHg. 6. Trace/mild (physiologic) pulmonic regurgitation. 7. The aortic root, ascending aorta and aortic arch are normal. 8. The pericardium is normal. 9. This was a technically difficult study with suboptimal views. 10. The left ventricular size is normal. 11. There is moderate concentric left ventricular hypertrophy. 12. Overall left ventricular systolic function is mild-moderately impaired with, an EF between 40 - 45 %. 13. The right ventricle is normal in size and function. 14. Normal LA size by volume 22+/-6 ml/m2. 15. The right atrium is normal in size. 16. 1.5mg of Definity was utilized for enhancement of images OUTPATIENT PROGRAM COORDINATOR: Kath Cheney RDCS
[2016-11-22] MEDS: SODIUM CHLORIDE 0.9% 1,000 ML IV SCH (10:20)
[2016-11-22] MEDS: AMIODARONE 450 MG in DEXTROSE 5% IN WATER 250 ML IV SCH ×4 (10:25→20:08)
[2016-11-22 11:12] LABS: INR 1.4 (<1.1); Prothrombin Time 13.6 sec (9.0-12.0)
[2016-11-22 11:35] LABS: Glucose,Whole Blood 126 mg/dL (75-99)
--- NOTE | 2016-11-22 13:21 | P.PN ---
Subjective This is an 66-year-old female patient of Dr. Ledesma with a past medical history of MTHFR gene mutation, asthma, diabetes mellitus type 2, hypertension. Patient is status post abdominal total hysterectomy with bilateral salpingo-oophorectomy by Dr. Suazo. Patient is seen shortly after surgery and has had no postop complications at this point. She is feeling tired. We will plan to resume her on Coumadin and Lovenox today if okay with Dr. Suazo. 11/20: Patient did have low blood pressure reading and blood pressure medications were held this morning. She is ambulating in the hallway and denies any lightheadedness or dizziness. She denies any chest pain or shortness of breath. She states her abdomen is tender but pain is controlled. INR today is 1.1. She is continued on Lovenox and Coumadin. 11/21: Patient's heart rate was 129 this morning with blood pressure of 90/53. EKG showed atrial fibrillation. Patient does state she has a history of irregular heartbeat and that's why she is on metoprolol. She is a known left bundle branch block and has followed with Dr. Gilmore in the past. Patient will be given a fluid bolus of 500 mL, her morning metoprolol was given and repeat heart rate was improved. Requesting that patient be monitored overnight. 11/22: Patient had repeat episode of A. fib with RVR and was transferred to selective care unit and cardiology consult requested. Patient is currently on amiodarone drip. Echocardiogram has been ordered. INR today is at 1.4. Objective - Vital Signs Vital signs: Vital Signs Temp 97.6 F 11/22/16 04:00 Pulse 100 11/22/16 04:00 Resp 16 11/22/16 04:00 BP 95/64 11/22/16 04:00 Pulse Ox 97 11/22/16 04:00 Intake & Output 11/21/16 11/22/16 11/22/16 18:59 06:59 18:59 Intake Total 637.5 120 Balance 637.5 120 Weight 130 kg Intake: IV 637.5 Sodium Chloride 0.9% 1, 637.5 000 ml @ 75 mls/hr IV . [id number] [facility] Rx#:[id number] Oral 120 Other: Voiding Method Toilet # Voids 2 - Exam Gen: This is a 66-year-old female. She is in bed and appears to be in no acute distress. HEENT: Head is atraumatic, normocephalic. Pupils equal, round. Sclerae is anicteric. Conjunctivae slightly pale. Mucous mouth are dry. NECK: Supple. No JVD. No lymphadenopathy. No thyromegaly. LUNGS: Clear to auscultation. No wheezes or rhonchi. No intercostal retractions. HEART: Irregular rate and rhythm. No murmur. ABDOMEN: Soft. Bowel sounds are present. No masses. Mild tenderness. EXTREMITIES: No pedal edema. No calf tenderness. NEUROLOGICAL: Patient is awake, alert and oriented x3. Cranial nerves 2 through 12 are grossly intact. - Labs CBC & Chem 7: 11/22/16 05:47 11/22/16 05:47 Labs: Abnormal Lab Results - Last 24 Hours (Table) 11/21/16 11/21/16 11/21/16 Range/Units 07:26 07:26 21:19 RBC 3.63 L (3.80-5.40) m/uL Hgb 10.9 L (11.4-16.0) gm/dL Hct 33.5 L (34.0-46.0) % Chloride (98-107) mmol/L Carbon Dioxide (22-30) mmol/L BUN (7-17) mg/dL Creatinine (0.52-1.04) mg/dL Glucose (74-99) mg/dL POC Glucose (mg/dL) 143 H (75-99) mg/dL CK-MB (CK-2) 8.9 H* (0.0-2.4) ng/mL 11/22/16 11/22/16 11/22/16 Range/Units 05:47 05:47 06:04 RBC 3.32 L (3.80-5.40) m/uL Hgb 9.8 L (11.4-16.0) gm/dL Hct 31.5 L (34.0-46.0) % Chloride 109 H (98-107) mmol/L Carbon Dioxide 20 L (22-30) mmol/L BUN 24 H (7-17) mg/dL Creatinine 1.34 H (0.52-1.04) mg/dL Glucose 122 H (74-99) mg/dL POC Glucose (mg/dL) 131 H (75-99) mg/dL CK-MB (CK-2) (0.0-2.4) ng/mL Assessment and Plan Plan: 1. Abnormal vaginal bleeding status post total abdominal hysterectomy and salpingo-oophorectomy. Continue current pain management. Continue activity per surgeon. 2. MTHFR gene mutation with prior history of pulmonary embolus. Patient will be resumed back on Lovenox and Coumadin. Recheck PT/INR in the morning. Patient has been encouraged to have her children tested for MTHFR gene mutation. 3. Hypertension. Continue lisinopril 20 mg twice daily to be resumed tonight, metoprolol 12.5 mg twice daily, Cardizem CD 180 mg daily. 4. Diabetes mellitus type II. Continue metformin. 5. Asthma, mild intermittent. Continue albuterol inhaler as needed. 6. DVT prophylaxis. Lovenox and Coumadin. 7. Gastrointestinal prophylaxis, Pepcid. 8. Proximal atrial fibrillation with episodes of A. fib with RVR. Cardiology consult. Echocardiogram pending. Patient is currently on amiodarone drip. Patient was on metoprolol tartrate 12.5 mg twice daily which she has been receiving here but she has not been receiving the Cardizem CD 180 mg daily while on the pediatric unit. This has been given this morning. Heart rate is currently controlled. Discharge plan: Return home Impression and plan of care have been directed as dictated by the signing physician. Emma Lopes nurse practitioner acting as scribe for signing physician. Time with Patient: Greater than 30
[2016-11-22 16:34] LABS: Glucose,Whole Blood 117 mg/dL (75-99)
[2016-11-22] MEDS: WARFARIN 2.5 MG TAB PO SCH (17:26)
[2016-11-22 21:02] LABS: Glucose,Whole Blood 116 mg/dL (75-99)
[2016-11-23] MEDS: SODIUM CHLORIDE 0.9% 1,000 ML IV SCH ×2 (01:34→12:44)
[2016-11-23] MEDS: AMIODARONE 450 MG in DEXTROSE 5% IN WATER 250 ML IV SCH ×4 (03:10→12:43)
[2016-11-23 06:05] LABS: Glucose,Whole Blood 123 mg/dL (75-99)
[2016-11-23 06:21] LABS: CH 28.9; CHCM 30.7; HCT 26.9 % (34.0-46.0); HGB 8.4 gm/dL (11.4-16.0); Hypochromasia Slight; MCH 29.6 pg (25.0-35.0); MCHC 31.2 g/dL (31.0-37.0); MCV 94.7 fL (80.0-100.0); Mean Platelet Volume 7.5; RBC 2.84 m/uL (3.80-5.40); RDW 13.8 % (11.5-15.5); WBC 10.2 k/uL (3.8-10.6)
[2016-11-23] MEDS: LACTATED RINGERS 1,000 ML IV SCH (06:22)
[2016-11-23 06:31] LABS: INR 1.5 (<1.1)
[2016-11-23 06:34] LABS: Calcium 8.5 mg/dL (8.4-10.2); Potassium 4.4 mmol/L (3.5-5.1)
[2016-11-23] MEDS: metFORMIN 500 MG TAB PO SCH (06:35)
--- NOTE | 2016-11-23 07:51 | P.DS ---
Providers Date of admission: 11/20/16 11:43 Expected date of discharge: 11/23/16 Attending physician: Sravani Suazo Consults: 11/19/16 09:46 Consult Physician Routine Consulting Provider: Andrei Ledesma Consult Reason/Comments: Medical management Do you want consulting provider notified?: Yes 11/21/16 21:15 Consult Physician Routine Consulting Provider: Annmarie Al Consult Reason/Comments: a-fib, may consult in the morning Do you want consulting provider notified?: Yes Primary care physician: [facility] Course: This 66-year-old female initially presented with postmenopausal bleeding. Outpatient evaluation including D&C revealed the presence of complex endometrial hyperplasia with atypia. Because this is a pre-malignant lesion, recommendation was for hysterectomy. Patient has multiple medical problems, please see my dictated history and physical for details. Patient was admitted and vaginal hysterectomy was attempted. Because of lack of good visualization, the procedure was converted to total abdominal hysterectomy, bilateral salpingo-oophorectomy. She did well intraoperatively, remained in a normal sinus rhythm. Please see my dictated operative note for details. Postoperatively the patient had issues with hypotension and tachycardia. Initial 12-lead EKG revealed sinus tachycardia. However, patient was subsequently noted to be in atrial fibrillation at which time she was transferred to the selective care unit for better cardiac monitoring. The incision has remained clean and dry, intact, no drainage. Vaginal discharge initially was somewhat heavy, but at this time has tapered to a very light serosanguineous flow. Patient's rhythm was converted to normal sinus rhythm with the aid of intravenous amiodarone, followed closely by Dr. Stanford and cardiac team. Dr. Fontaine and Dr. Ledesma had also been consult good on the day of surgery and has followed the patient carefully medically as well. This morning she is doing well. She is in a normal sinus rhythm, pulse 80. Chest is clear. Extremities are negative for edema. Abdomen is soft and nontender, no CVA tenderness, incision is clean and dry, well approximated. She is passing gas and passing urine without difficulties. From a surgical standpoint the patient is ready for discharge home today. Her medications will be followed closely by Dr. Flores and georgiana Espitia, recommendations have been given and have been documented. She will use Tylenol No. 3 as needed for pain, a prescription has been sent to pharmacy, 2 pills every 4-6 hours when necessary. She can alternate this with extra strength Tylenol and I have reviewed this with her in detail. I have reminded her no heavy lifting, no driving, no vacuuming, no intercourse. She will follow-up in the office with cardiology in 1 week, and with me in 2 weeks. I have asked her to call me with any issues, any redness or drainage of the incision, any pain not alleviated by the above regime, any redness or drainage of the incision. Final pathology report is still pending at time of this dictation. Patient Condition at Discharge: Fair Plan - Discharge Summary Discharge Medication List [id number] [Folbic] 1 tab PO HS 09/10/16 [History] Diltiazem Cd [Cardizem Cd] 180 mg PO QAM 09/10/16 [History] Lisinopril [Prinivil] 20 mg PO BID 09/10/16 [History] Metoprolol Tartrate [Lopressor] 12.5 mg PO BID 09/10/16 [History] Warfarin [Coumadin] 2.5 mg PO SUTUTHSA 09/10/16 [History] Warfarin [Coumadin] 5 mg PO MOWEFR 09/10/16 [History] metFORMIN HCL [Glucophage] 500 mg PO BID 09/10/16 [History] Albuterol Inhaler [Ventolin Hfa Inhaler] 1 - 2 puff INHALATION RT-Q6H PRN [History] ALPRAZolam [Xanax] 0.25 mg PO TID PRN 09/13/16 [History] Enoxaparin [Lovenox] 120 mg SQ Q12H 11/14/16 [History] Follow up Appointment(s)/Referral(s): Sravani Suazo MD [STAFF PHYSICIAN] - 2 Weeks
[2016-11-23] MEDS: ENOXAPARIN 120 MG/0.8 ML SYRINGE SQ SCH (08:25)
[2016-11-23] MEDS: DILTIAZEM CD 180 MG CAP.ER.24H PO SCH (08:25)
[2016-11-23] MEDS: METOPROLOL TARTRATE 12.5 MG TAB PO SCH (08:26)
[2016-11-23] MEDS: SENNOSIDES-DOCUSATE SODIUM 1 EACH TAB PO SCH (08:26)
[2016-11-23 09:44] VITALS: BP 102/59; PULSE 70; RESP 18; TEMP 97.6
[2016-11-23] MEDS: Acetaminophen-Codeine 300-30mg TAB PO PRN ×2 (09:50→15:44)
[2016-11-23] MEDS ORDERED: AMIODARONE 200 MG TAB PO SCH (10:45)
[2016-11-23 11:48] LABS: Hemoglobin A1C 6.1 % (4.2-6.1)
[2016-11-23 11:58] LABS: Glucose,Whole Blood 113 mg/dL (75-99)
--- NOTE | 2016-11-23 12:44 | P.PN ---
Subjective This is an 66-year-old female patient of Dr. Ledesma with a past medical history of MTHFR gene mutation, asthma, diabetes mellitus type 2, hypertension. Patient is status post abdominal total hysterectomy with bilateral salpingo-oophorectomy by Dr. Suazo. Patient is seen shortly after surgery and has had no postop complications at this point. She is feeling tired. We will plan to resume her on Coumadin and Lovenox today if okay with Dr. Suazo. 11/20: Patient did have low blood pressure reading and blood pressure medications were held this morning. She is ambulating in the hallway and denies any lightheadedness or dizziness. She denies any chest pain or shortness of breath. She states her abdomen is tender but pain is controlled. INR today is 1.1. She is continued on Lovenox and Coumadin. 11/21: Patient's heart rate was 129 this morning with blood pressure of 90/53. EKG showed atrial fibrillation. Patient does state she has a history of irregular heartbeat and that's why she is on metoprolol. She is a known left bundle branch block and has followed with Dr. Gilmore in the past. Patient will be given a fluid bolus of 500 mL, her morning metoprolol was given and repeat heart rate was improved. Requesting that patient be monitored overnight. 11/22: Patient had repeat episode of A. fib with RVR and was transferred to selective care unit and cardiology consult requested. Patient is currently on amiodarone drip. Echocardiogram has been ordered. INR today is at 1.4. 11/23: Repeat creatinine is at 2.15. Lisinopril will be discontinued for home. She is in a sinus rhythm. INR is at 1.5. Cardiology has cleared her for discharge and will provide prescription for amiodarone taper. Patient to continue Lovenox and Coumadin. Recheck INR on Saturday and results to Dr. Ledesma. Objective - Vital Signs Vital signs: Vital Signs Temp 98 F 11/23/16 04:00 Pulse 71 11/23/16 04:00 Resp 16 11/23/16 04:00 BP 95/54 11/23/16 04:00 Pulse Ox 94 L 11/23/16 04:00 Intake & Output 04/27/17 04/28/17 04/28/17 18:59 06:59 18:59 Intake Total 326.604 996.911 Output Total 300 Balance 26.604 996.911 Weight 132.5 kg Intake: IV 823.12 0.9 @20mls/hr 480 Amiodarone 450 mg In 343.12 Dextrose 5% in Water 250 ml @ 1 MG/MIN 34.53 mls/ hr IV .Q7H31M [facility] Rx#: [id number] Intake, IV Titration 206.604 173.791 Amount Amiodarone 450 mg In 206.604 173.791 Dextrose 5% in Water 250 ml @ 1 MG/MIN 34.53 mls/ hr IV .Q7H31M [facility] Rx#: [id number] Oral 120 Output: Urine 300 Other: Voiding Method Toilet # Voids 2 - Exam Gen: This is a 66-year-old female. She is in bed and appears to be in no acute distress. HEENT: Head is atraumatic, normocephalic. Pupils equal, round. Sclerae is anicteric. Conjunctivae slightly pale. Mucous mouth are dry. NECK: Supple. No JVD. No lymphadenopathy. No thyromegaly. LUNGS: Clear to auscultation. No wheezes or rhonchi. No intercostal retractions. HEART: Irregular rate and rhythm. No murmur. ABDOMEN: Soft. Bowel sounds are present. No masses. Mild tenderness. EXTREMITIES: No pedal edema. No calf tenderness. NEUROLOGICAL: Patient is awake, alert and oriented x3. Cranial nerves 2 through 12 are grossly intact. - Labs CBC & Chem 7: 11/23/16 05:30 11/23/16 05:30 Labs: Abnormal Lab Results - Last 24 Hours (Table) 11/22/16 11/22/16 11/22/16 Range/Units 05:47 10:42 11:33 RBC (3.80-5.40) m/uL Hgb (11.4-16.0) gm/dL Hct (34.0-46.0) % PT 13.6 H (9.0-12.0) sec Chloride 109 H (98-107) mmol/L Carbon Dioxide 20 L (22-30) mmol/L BUN 24 H (7-17) mg/dL Creatinine 1.34 H (0.52-1.04) mg/dL Glucose 122 H (74-99) mg/dL POC Glucose (mg/dL) 126 H (75-99) mg/dL 11/22/16 11/22/16 11/23/16 Range/Units 16:29 21:00 05:30 RBC (3.80-5.40) m/uL Hgb (11.4-16.0) gm/dL Hct (34.0-46.0) % PT 15.0 H (9.0-12.0) sec Chloride (98-107) mmol/L Carbon Dioxide (22-30) mmol/L BUN (7-17) mg/dL Creatinine (0.52-1.04) mg/dL Glucose (74-99) mg/dL POC Glucose (mg/dL) 117 H 116 H (75-99) mg/dL 11/23/16 11/23/16 11/23/16 Range/Units 05:30 05:30 06:04 RBC 2.84 L (3.80-5.40) m/uL Hgb 8.4 L (11.4-16.0) gm/dL Hct 26.9 L (34.0-46.0) % PT (9.0-12.0) sec Chloride (98-107) mmol/L Carbon Dioxide (22-30) mmol/L BUN 30 H (7-17) mg/dL Creatinine 2.15 H (0.52-1.04) mg/dL Glucose 113 H (74-99) mg/dL POC Glucose (mg/dL) 123 H (75-99) mg/dL Assessment and Plan Plan: 1. Abnormal vaginal bleeding status post total abdominal hysterectomy and salpingo-oophorectomy. Continue current pain management. Continue activity per surgeon. 2. MTHFR gene mutation with prior history of pulmonary embolus. Patient will be resumed back on Lovenox and Coumadin. Recheck PT/INR in the morning. Patient has been encouraged to have her children tested for MTHFR gene mutation. 3. Hypertension. Continue lisinopril 20 mg twice daily to be resumed tonight, metoprolol 12.5 mg twice daily, Cardizem CD 180 mg daily. 4. Diabetes mellitus type II. Continue metformin. 5. Asthma, mild intermittent. Continue albuterol inhaler as needed. 6. DVT prophylaxis. Lovenox and Coumadin. 7. Gastrointestinal prophylaxis, Pepcid. 8. Proximal atrial fibrillation with episodes of A. fib with RVR. Cardiology consult. Oral amiodarone, metoprolol tartrate 12.5 mg twice daily, Cardizem CD 180 mg 9. Acute kidney injury possibly due to hypotension. Lisinopril discontinued Discharge plan: Return home Impression and plan of care have been directed as dictated by the signing physician. Emma Lopes nurse practitioner acting as scribe for signing physician. Time with Patient: Greater than 30
--- NOTE | 2016-11-23 15:35 | P.PN ---
Subjective Principal diagnosis: Atrial fibrillation This is a pleasant 66-year-old female with history of hypertension, diabetes, MTHFR gene mutation, paroxysmal atrial fibrillation, prior pulmonary embolisms, asthma, who is status post total abdominal hysterectomy with bilateral salpingo-oophorectomy by . Patient had no major postoperative complications,EKG showed atrial fibrillation with a rapid ventricular response. For this reason the patient was transferred to the telemetry unit and a cardiology consultation was requested. She was seen in consultation yesterday and initiated on IV amiodarone drip per protocol. She did convert to normal sinus rhythm through the night last night. Continues to be in sinus rhythm this morning. TSH level 2.09. INR 1.5 today. Creatinine 2.1 up from 1.3. Abnormal creatinine today could be secondary to the hypotension patient was having. We will hold her MINE inhibitor, we will also discontinue the Cardizem, continue beta lashae. Overall she is doing well, no complaints. We will start her on oral amiodarone 200 mg one tablet by mouth 3 times a day for one week, then 200 mg daily. Continue Coumadin along with Lovenox until her INR is therapeutic, and ours will need to be closely monitored as the patient is on amiodarone. A follow-up appointment will be made with Dr. Stanford in the office in one week. Objective - Vital Signs Vital signs: Vital Signs Temp 97.6 F 11/23/16 08:00 Pulse 70 11/23/16 08:00 Resp 18 11/23/16 08:00 BP 102/59 11/23/16 08:00 Pulse Ox 95 11/23/16 08:00 Intake & Output 11/22/16 11/23/16 11/23/16 18:59 06:59 18:59 Intake Total 326.604 996.911 330 Output Total 300 Balance 26.604 996.911 330 Weight 132.5 kg Intake: IV 823.12 0.9 @20mls/hr 480 Amiodarone 450 mg In 343.12 Dextrose 5% in Water 250 ml @ 1 MG/MIN 34.53 mls/ hr IV .Q7H31M [facility] Rx#: [id number] Intake, IV Titration 206.604 173.791 Amount Amiodarone 450 mg In 206.604 173.791 Dextrose 5% in Water 250 ml @ 1 MG/MIN 34.53 mls/ hr IV .Q7H31M [facility] Rx#: [id number] Oral 120 330 Output: Urine 300 Other: Voiding Method Toilet # Voids 2 - Exam PHYSICAL EXAMINATION: HEENT: Head is atraumatic, normocephalic. Pupils equal, round. Neck is supple. There is no elevated jugular venous pressure. HEART EXAMINATION: Heart S1 and S2 irregularly irregular CHEST EXAMINATION: Lungs are clear to auscultation and precussion. No chest wall tenderness is noted on palpation or with deep breathing. ABDOMEN: Soft, obese , nontender. Bowel sounds are heard. No organomegaly noted. Abdominal transverse incision clean and dry. EXTREMITIES: 2+ peripheral pulses with trace evidence of peripheral edema and no calf tenderness noted. NEUROLOGIC patient is awake, alert and oriented -3. - Labs CBC & Chem 7: 11/23/16 05:30 11/23/16 05:30 Labs: Abnormal Lab Results - Last 24 Hours (Table) 11/22/16 11/22/16 11/23/16 Range/Units 16:29 21:00 05:30 RBC (3.80-5.40) m/uL Hgb (11.4-16.0) gm/dL Hct (34.0-46.0) % PT 15.0 H (9.0-12.0) sec BUN (7-17) mg/dL Creatinine (0.52-1.04) mg/dL Glucose (74-99) mg/dL POC Glucose (mg/dL) 117 H 116 H (75-99) mg/dL 11/23/16 11/23/16 11/23/16 Range/Units 05:30 05:30 06:04 RBC 2.84 L (3.80-5.40) m/uL Hgb 8.4 L (11.4-16.0) gm/dL Hct 26.9 L (34.0-46.0) % PT (9.0-12.0) sec BUN 30 H (7-17) mg/dL Creatinine 2.15 H (0.52-1.04) mg/dL Glucose 113 H (74-99) mg/dL POC Glucose (mg/dL) 123 H (75-99) mg/dL 04/28/17 Range/Units 11:53 RBC (3.80-5.40) m/uL Hgb (11.4-16.0) gm/dL Hct (34.0-46.0) % PT (9.0-12.0) sec BUN (7-17) mg/dL Creatinine (0.52-1.04) mg/dL Glucose (74-99) mg/dL POC Glucose (mg/dL) 113 H (75-99) mg/dL Assessment and Plan Plan: Assessment and plan #1 abnormal vaginal bleeding status post total abdominal hysterectomy and salpingo-oophorectomy. #2 MTHFR gene mutation with prior history of pulmonary embolism, patient on Lovenox and Coumadin. #3 hypertension #4 atrial fibrillation with rapid ventricular response, now in normal sinus rhythm. #5 history of paroxysmal atrial fibrillation #6 diabetes #7 asthma #8 abnormal renal function, creatinine 2.1 today likely secondary to hypotension. Plan Echocardiogram with Doppler study was performed which revealed an ejection fraction of 45%. Patient will be discharged home today on amiodarone 200 mg one tablet by mouth twice a day for one week, then 200 mg daily. She will continue on her Coumadin along with Lovenox until the INR is therapeutic. INR monitoring closely as the patient is on amiodarone. Continue beta lashae, discontinue Cardizem, discontinue MINE inhibitor. A follow-up appointment will be made with Dr. Stanford in the office in one week. Lytes BUN and creatinine in one week. DNP note has been reviewed, I agree with a documented findings and plan of care. Patient was seen and examined.
[2016-11-24] MEDS ORDERED: ENOXAPARIN 120 MG/0.8 ML SYRINGE SQ SCH (09:00)
== END 2016-11-23 15:52 | disposition home or self-care (01) | DRG 742 ==
LOC: OR 05:51 → 6PED 09:30 → OR 11-20 11:43 → 6PED 11-20 11:43 → 6SEL 11-21 21:12
PROVIDERS: ADMIT Obstetrics & Gynecology; ATTEND Obstetrics & Gynecology
PROC: 0UT20ZZ Resection of Bilateral Ovaries, Open Approach (ICD-10-PCS; principal; 2016-11-20)
PROC: 0UT90ZZ Resection of Uterus, Open Approach (ICD-10-PCS; principal; 2016-11-20)
PROC: 0UT70ZZ Resection of Bilateral Fallopian Tubes, Open Approach (ICD-10-PCS; principal; 2016-11-20)
PROC: 0UTC0ZZ Resection of Cervix, Open Approach (ICD-10-PCS; principal; 2016-11-20)
DX: N85.02 Endometrial intraepithelial neoplasia [EIN] (principal); Z68.43 Body mass index [BMI] 50.0-59.9, adult; I95.9 Hypotension, unspecified; E11.22 Type 2 diabetes mellitus with diabetic chronic kidney disease; I48.0 Paroxysmal atrial fibrillation; E66.01 Morbid (severe) obesity due to excess calories; I48.2 Chronic atrial fibrillation; I12.9 Hypertensive chronic kidney disease with stage 1 through stage 4 chronic kidney disease, or unspecified chronic kidney disease; I44.7 Left bundle-branch block, unspecified; J45.909 Unspecified asthma, uncomplicated; N18.9 Chronic kidney disease, unspecified; Z79.01 Long term (current) use of anticoagulants; Z79.84 Long term (current) use of oral hypoglycemic drugs; Z79.899 Other long term (current) drug therapy; Z82.49 Family history of ischemic heart disease and other diseases of the circulatory system; Z86.711 Personal history of pulmonary embolism; Z98.51 Tubal ligation status; Z53.31 Laparoscopic surgical procedure converted to open procedure
CPT/HCPCS: 80048; 82553; 83036; 84443; 84484; 85025; 85027; 85610; 86850; 86900; 86901; 88307; 88309; 93005; 93306; 94760

== ENCOUNTER 2016-11-25 11:11 | Inpatient (IN) | payer MEDICARE, OTHER ==
[~2016-11-25 11:11] MED LIST changes: +HUMAN PROTHROMBIN COMPLX 500 UNIT/16 ML VIAL IV ONE; -ceFAZolin 3 GM in SODIUM CHLORIDE 0.9% 100 ML IVPB ONE
[2016-11-25] MEDS ORDERED: SODIUM CHLORIDE 0.9% 1,000 ML IV STA (11:30)
--- NOTE | 2016-11-25 11:40 | ED ---
General Adult HPI - General Chief complaint: Syncope Stated complaint: vag bleeding, syncope Time Seen by Provider: 11/25/16 11:16 Source: patient, RN notes reviewed Mode of arrival: EMS Limitations: no limitations - History of Present Illness Initial comments: Patient is 58-year-old female presents to the emergency room for evaluation of vaginal bleeding and syncopal episode. Patient states she had an abdominal hysterectomy by Dr. Suazo on Saturday. Patient states she was discharged from the hospital on Saturday. Patient states last night she began with increasing vaginal bleeding. Patient states today while getting up from the bathroom she felt dizzy. Patient's granddaughter is present with patient. Patient's granddaughter states after they're coming out of the bathroom patient began to walk sideways. Patient's daughter states that she helped her to the ground and did not hit her head. Patient states she woke up sitting on the ground. Patient's grandaughter states the episode lasted for only a few seconds. Patient states that she has a history of A. fib. Patient states that she has been on Coumadin for the past 4 years. Patient states she is currently bridging from Lovenox back to Coumadin. Patient states her INR on discharge was 1.5. Patient denies any complaints at this times besides significant vaginal bleeding. Patient denies headache or dizziness. Patient denies chest pain or should is of breath. Patient denies abdominal pain. Patient denies fevers or chills. - Related Data Home Medications Medication Instructions Recorded Confirmed Ptniixoxdmqzgr-BJ-Xfxibssbon 1 tab PO HS 09/10/16 11/25/16 [Folbic] Diltiazem Cd [Cardizem CD] 180 mg PO QAM 09/10/16 11/25/16 Metoprolol Tartrate [Lopressor] 12.5 mg PO BID 09/10/16 11/25/16 Warfarin [Coumadin] 2.5 mg PO SUTUTHSA 09/10/16 11/25/16 Warfarin [Coumadin] 5 mg PO MOWEFR 09/10/16 11/25/16 metFORMIN HCL [Glucophage] 500 mg PO BID 09/10/16 11/25/16 Albuterol Inhaler [Ventolin Hfa 1 - 2 puff INHALATION RT-Q6H PRN 09/11/16 Inhaler] ALPRAZolam [Xanax] 0.25 mg PO TID PRN 09/13/16 11/25/16 Enoxaparin [Lovenox] 120 mg SQ Q12H MDD FINAL DOSE 11/14/16 11/25/16 11/25/2016 Previous Rx's Medication Instructions Recorded Acetaminophen-Codeine 300-30mg 1 tab PO Q4H PRN #2 tablet 11/23/16 [Tylenol #3] Amiodarone [Cordarone] 200 mg PO BID #60 tab 11/23/16 Allergies Allergy/AdvReac Type Severity Reaction Status Date / Time No Known Allergies Allergy Verified 11/25/16 12:49 Review of Systems ROS Statement: Those systems with pertinent positive or pertinent negative responses have been documented in the HPI. ROS Other: All systems not noted in ROS Statement are negative. Past Medical History Past Medical History: Asthma, Diabetes Mellitus, Hypertension, Pulmonary Embolus (PE) Additional Past Medical History / Comment(s): MTHFR gene mutation History of Any Multi-Drug Resistant Organisms: None Reported Past Surgical History: Breast Surgery, Section, Hysterectomy, Orthopedic Surgery Additional Past Surgical History / Comment(s): RIGHT ANKLE-PINS AND PLATE breast biopsy Past Anesthesia/Blood Transfusion Reactions: No Reported Reaction Additional Past Anesthesia/Blood Transfusion Reaction / Comment(s): no hx blood transfusion Past Psychological History: No Psychological Hx Reported Smoking Status: Never smoker Past Alcohol Use History: Rare Additional Past Alcohol Use History / Comment(s): Patient denies any history of smoking, medical marijuana, marijuana, street drug or alcohol use. 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 Past Drug Use History: None Reported - Past Family History Mother Family Medical History: No Reported History Additional Family Medical History / Comment(s): Mother at age 88 from sepsis. Brother(s) Family Medical History: Myocardial Infarction ([place]) Additional Family Medical History / Comment(s): Brother at age 49 from myocardial infarction. Father Additional Family Medical History / Comment(s): Father at age 57 from a myocardial infarction. Sister(s) Additional Family Medical History / Comment(s): He has one sister alive but has never been tested for MTHFR gene mutation. Son(s) Additional Family Medical History / Comment(s): She has 2 sons and 1 daughter with no major medical problems. General Exam - General Exam Comments Initial Comments: Laying in exam room, no acute distress. Limitations: no limitations General appearance: alert, in no apparent distress Head exam: Present: atraumatic, normocephalic, normal inspection Eye exam: Present: normal appearance ENT exam: Present: normal exam Neck exam: Present: normal inspection Respiratory exam: Present: normal lung sounds bilaterally. Absent: respiratory distress Cardiovascular Exam: Present: regular rate, normal rhythm, normal heart sounds External exam: Present: normal external exam, other (active vaginal bleeding ( bright red)) Extremities exam: Present: normal inspection Back exam: Present: normal inspection Neurological exam: Present: alert, oriented X3, CN II-XII intact, normal gait Psychiatric exam: Present: normal affect, normal mood Skin exam: Present: warm, dry, intact, normal color. Absent: rash Course Vital Signs 11/25/16 11/25/16 11:21 13:17 Temperature 97.7 F Pulse Rate 100 Respiratory 18 Rate Blood Pressure 141/54 O2 Sat by Pulse 99 Oximetry EKG Findings - EKG Comments: EKG Findings:: No sinus rhythm, ventricular rate 64 bpm, NV interval 174 seconds , QRS duration 138 ms, QT/QTC 452/466 ms Medical Decision Making - Medical Decision Making Patient is a 66-year-old female presents to the emergency room for evaluation of postop vaginal bleeding and syncopal episode. Patient states she is feeling better on arrival. Patient denies any symptoms besides consistent vaginal bleeding. Patient's hemoglobin 6.1. INR 1.9. Patient states she is currently bridging from Lovenox to Coumadin. Patient started on one unit packed red blood cells. Case discussed with Dr. Quiñones. Dr. Quiñones discussed case with Dr. Suazo and Dr. Reed. Patient will be admitted. - Lab Data Result diagrams: 11/25/16 11:36 11/25/16 11:36 Lab Results 11/25/16 11/25/16 11/25/16 Range/Units 11:36 11:36 11:36 WBC 10.5 (3.8-10.6) k/uL RBC 2.11 L (3.80-5.40) m/uL Hgb 6.1 L* D (11.4-16.0) gm/dL Hct 19.5 L* (34.0-46.0) % MCV 92.7 (80.0-100.0) fL MCH 28.9 (25.0-35.0) pg MCHC 31.2 (31.0-37.0) g/dL RDW 14.1 (11.5-15.5) % Plt Count 291 (150-450) k/uL Neutrophils % 74 % Lymphocytes % 20 % Monocytes % 4 % Eosinophils % 1 % Basophils % 0 % Neutrophils # 7.8 H (1.3-7.7) k/uL Lymphocytes # 2.1 (1.0-4.8) k/uL Monocytes # 0.4 (0-1.0) k/uL Eosinophils # 0.1 (0-0.7) k/uL Basophils # 0.0 (0-0.2) k/uL Hypochromasia Slight PT (9.0-12.0) sec INR (<1.1) APTT (22.0-30.0) sec Sodium 135 L (137-145) mmol/L Potassium 5.2 H (3.5-5.1) mmol/L Chloride 108 H (98-107) mmol/L Carbon Dioxide 21 L (22-30) mmol/L Anion Gap 6 mmol/L BUN 44 H (7-17) mg/dL Creatinine 2.82 H (0.52-1.04) mg/dL Est GFR (MDRD) Af Amer 20 (>60 ml/min/1.73 sqM) Est GFR (MDRD) Non-Af 17 (>60 ml/min/1.73 sqM) Glucose 128 H (74-99) mg/dL Calcium 8.1 L (8.4-10.2) mg/dL Total Bilirubin 0.5 (0.2-1.3) mg/dL AST 34 (14-36) U/L ALT 57 H (9-52) U/L Alkaline Phosphatase 44 (38-126) U/L Total Creatine Kinase (30-135) U/L CK-MB (CK-2) (0.0-2.4) ng/mL CK-MB (CK-2) Rel Index Troponin I (0.000-0.034) ng/mL Total Protein 4.7 L (6.3-8.2) g/dL Albumin 2.5 L (3.5-5.0) g/dL Blood Type A Positive Blood Type Recheck No Antibody Screen NEGATIVE Spec Expiration Date 11/28/2016233511/25/16 11/25/16 Range/Units 11:36 11:36 WBC (3.8-10.6) k/uL RBC (3.80-5.40) m/uL Hgb (11.4-16.0) gm/dL Hct (34.0-46.0) % MCV (80.0-100.0) fL MCH (25.0-35.0) pg MCHC (31.0-37.0) g/dL RDW (11.5-15.5) % Plt Count (150-450) k/uL Neutrophils % % Lymphocytes % % Monocytes % % Eosinophils % % Basophils % % Neutrophils # (1.3-7.7) k/uL Lymphocytes # (1.0-4.8) k/uL Monocytes # (0-1.0) k/uL Eosinophils # (0-0.7) k/uL Basophils # (0-0.2) k/uL Hypochromasia PT 18.1 H (9.0-12.0) sec INR 1.9 (<1.1) APTT 32.8 H (22.0-30.0) sec Sodium (137-145) mmol/L Potassium (3.5-5.1) mmol/L Chloride (98-107) mmol/L Carbon Dioxide (22-30) mmol/L Anion Gap mmol/L BUN (7-17) mg/dL Creatinine (0.52-1.04) mg/dL Est GFR (MDRD) Af Amer (>60 ml/min/1.73 sqM) Est GFR (MDRD) Non-Af (>60 ml/min/1.73 sqM) Glucose (74-99) mg/dL Calcium (8.4-10.2) mg/dL Total Bilirubin (0.2-1.3) mg/dL AST (14-36) U/L ALT (9-52) U/L Alkaline Phosphatase (38-126) U/L Total Creatine Kinase 235 H (30-135) U/L CK-MB (CK-2) 0.8 (0.0-2.4) ng/mL CK-MB (CK-2) Rel Index 0.3 Troponin I <0.012 (0.000-0.034) ng/mL Total Protein (6.3-8.2) g/dL Albumin (3.5-5.0) g/dL Blood Type Blood Type Recheck Antibody Screen Spec Expiration Date Disposition Clinical Impression: Syncopal episodes, Anemia, Postoperative vaginal bleeding Disposition: ADMITTED IP TO THIS [facility] Condition: Stable Referrals: Andrei Ledesma MD [Primary Care Provider] - 1-2 days Decision Date: 11/25/16
[2016-11-25 11:51] LABS: Basophils % (A) 0 %; CHCM 31.5; Eosinophils # (A) 0.1 k/uL (0-0.7); Eosinophils % (A) 1 %; HDW 2.49; Hypochromasia Slight; Luc # (Auto) 0.16; Luc % (Auto) 2; Lymphocytes # (A) 2.1 k/uL (1.0-4.8); Lymphocytes % (A) 20 %; MCH 28.9 pg (25.0-35.0); MCHC 31.2 g/dL (31.0-37.0); MCV 92.7 fL (80.0-100.0); Mean Platelet Volume 8.1; Monocytes # (A) 0.4 k/uL (0-1.0); Monocytes % (A) 4 %; Neutrophils # (A) 7.8 k/uL (1.3-7.7); Neutrophils % (A) 74 %; RBC 2.11 m/uL (3.80-5.40); RDW 14.1 % (11.5-15.5); WBC 10.5 k/uL (3.8-10.6); WBC (Perox) 10.42
[2016-11-25 11:56] LABS: HCT 19.5 % (34.0-46.0); HGB 6.1 gm/dL (11.4-16.0)
[2016-11-25 12:00] LABS: Partial Thromboplastin Time 32.8 sec (22.0-30.0)
[2016-11-25 12:02] LABS: INR 1.9 (<1.1); Prothrombin Time 18.1 sec (9.0-12.0)
[2016-11-25 12:19] LABS: Creatine Kinase 235 U/L (30-135)
[2016-11-25 12:27] LABS: Calcium 8.1 mg/dL (8.4-10.2); Potassium 5.2 mmol/L (3.5-5.1); Total Bilirubin 0.5 mg/dL (0.2-1.3); Total Protein 4.7 g/dL (6.3-8.2)
[2016-11-25 12:30] LABS: Creatine Kinase MB 0.8 ng/mL (0.0-2.4); Troponin I <0.012 ng/mL (0.000-0.034)
[2016-11-25] MEDS ORDERED: NALOXONE 0.4 MG/ML 1 ML VIAL IV PRN (13:37)
[2016-11-25] MEDS ORDERED: ONDANSETRON 4 MG/2 ML VIAL IVP PRN (13:37)
[2016-11-25] MEDS ORDERED: Acetaminophen-Codeine 300-30mg TAB PO PRN ×2 (13:37→15:46)
[2016-11-25] MEDS ORDERED: ACETAMINOPHEN TAB 325 MG TAB PO PRN (13:37)
[2016-11-25] MEDS ORDERED: PROTAMINE SULFATE 10 MG/ML 5 ML VIAL IV STA (14:13)
[2016-11-25] MEDS ORDERED: HUMAN PROTHROMBIN COMPLX IV ONE ×2 (14:14→15:00)
[2016-11-25 14:42] LABS: Glucose,Whole Blood 125 mg/dL (75-99)
[2016-11-25] MEDS ORDERED: EPINEPHrine 10 ML SYRINGE (0.1 MG/ML) ONE (15:00)
[2016-11-25] MEDS ORDERED: ATROPINE SULFATE 0.4 MG/ML 1 ML VIAL ONE (15:00)
[2016-11-25] MEDS ORDERED: ALPRAZolam 0.25 MG TAB PO PRN (15:46)
[2016-11-25 17:10] LABS: Glucose,Whole Blood 110 mg/dL (75-99)
--- NOTE | 2016-11-25 17:16 | P.OBCN ---
History of Present Illness Consult date: 11/25/16 Reason for consult: menorrhagia Chief complaint: Increased vaginal bleeding for the past 12 hours History of present illness: This is a 66-year-old white female 3 para [id number] who presented initially to the hospital 6 days ago. At that time she underwent a vaginal hysterectomy, converted to total abdominal hysterectomy, bilateral salpingo-oophorectomy for complex endometrial hyperplasia without atypia. Surgery went well. Postoperatively the patient was noted to be in atrial fibrillation and therefore was transferred to the selective care unit. She was managed medically by Drs. jack suarez, Dr. Stanford of cardiology also consulted. Patient 's rhythm was converted using Amridarone, and ultimately she was discharged home 2 days ago on Saturday she went home on Lovenox 120 mg twice daily as well as Coumadin orally. She presents today to the emergency room with increased vaginal bleeding for the past 12 hours, along with the passage of clots. She had a syncopal episode at home, but did not fall. Upon admission, hemoglobin was noted to be 6.1, platelets 291,000. Potassium is high at 5.2, blood sugar 128. 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 Past surgical history significant for sections 3, recent COLLINS/BSO 6 days ago, recent breast biopsy of benign pathology, and orthopedic surgery in the past. Current medications include phobic at at bedtime, Cardizem 180 mg daily, metoprolol 12.5 mg twice daily, Glucophage 500 mg twice daily, albuterol inhaler 1-2 puffs every 6 hours, Lovenox 120 mg twice daily, as well as oral Coumadin. ALLERGIES none known. Family history significant for LA in the patient's father who at age 57, patient's brother who at age 49. Her mother age 88 of sepsis. Social history patient was a smoker in the remote past, she enjoys social alcohol use only, denies any drug use. 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 On exam this is a pleasant white female, 5 foot 2 inches, 132 kg, BMI 55. Patient is afebrile, pulse in the 80s, blood pressure 105/69. HEENT examination is negative, no thyromegaly, no discernible lymphadenopathy. Chest clear to auscultation in all kearns anteriorly and posteriorly. Cardiac exam reveals regular rate and rhythm. Abdomen is morbidly obese, there are active bowel sounds. No CVA tenderness. Low transverse incision is clean and dry, it is redressed with a surgical dressing. Extremities reveal no edema. Speculum was gently placed into the vagina. There is a golf ball size clot at the apex which is removed. No active bleeding is noted. Peripads replaced. Impression: 6 days postop from total abdominal hysterectomy, bilateral salpingo- oophorectomy, [place] at the coagulated now presenting with vaginal bleeding and anemia. Multiple medical problems as noted above. Plan: 1 unit of packed red blood cells have are deep and given, 2 additional units have been ordered. Dr. Reed is seeing the patient for the medical service and further orders will be written per her discussion. Our plan is to reverse the anticoagulation at this time, controlled the bleeding vaginally and then restart Lovenox at a lower dose. In addition, other lab discuss these will be managed medically. We will continue to follow the patient closely with the team. Thank you for the consultation. Review of Systems Constitutional: Reports as per HPI Past Medical History Past Medical History: Asthma, Diabetes Mellitus, Hypertension, Pulmonary Embolus (PE) Additional Past Medical History / Comment(s): MTHFR gene mutation History of Any Multi-Drug Resistant Organisms: None Reported Past Surgical History: Breast Surgery, Section, Hysterectomy, Orthopedic Surgery Additional Past Surgical History / Comment(s): RIGHT ANKLE-PINS AND PLATE breast biopsy Past Anesthesia/Blood Transfusion Reactions: No Reported Reaction Additional Past Anesthesia/Blood Transfusion Reaction / Comm: no hx blood transfusion Past Psychological History: No Psychological Hx Reported Smoking Status: Never smoker Past Alcohol Use History: Rare Additional Past Alcohol Use History / Comment(s): . Past Drug Use History: None Reported - Past Family History Mother Family Medical History: No Reported History Additional Family Medical History / Comment(s): Mother at age 88 from sepsis. Brother(s) Family Medical History: Myocardial Infarction ([place]) Additional Family Medical History / Comment(s): Brother at age 49 from myocardial infarction. Father Additional Family Medical History / Comment(s): Father at age 57 from a myocardial infarction. Sister(s) Additional Family Medical History / Comment(s): He has one sister alive but has never been tested for MTHFR gene mutation. Son(s) Additional Family Medical History / Comment(s): She has 2 sons and 1 daughter with no major medical problems. Medications and Allergies Home Medications Medication Instructions Recorded Confirmed Type Qttbmodrprirtn-NP-Agczlamadu 1 tab PO HS 09/10/16 11/25/16 History [Folbic] Diltiazem Cd [Cardizem CD] 180 mg PO QAM 09/10/16 11/25/16 History Metoprolol Tartrate [Lopressor] 12.5 mg PO BID 09/10/16 11/25/16 History Warfarin [Coumadin] 2.5 mg PO SUTUTHSA 09/10/16 11/25/16 History Warfarin [Coumadin] 5 mg PO MOWEFR 09/10/16 11/25/16 History metFORMIN HCL [Glucophage] 500 mg PO BID 09/10/16 11/25/16 History Albuterol Inhaler [Ventolin Hfa 1 - 2 puff INHALATION RT-Q6H PRN 09/11/16 History Inhaler] ALPRAZolam [Xanax] 0.25 mg PO TID PRN 09/13/16 11/25/16 History Enoxaparin [Lovenox] 120 mg SQ Q12H MDD FINAL DOSE 11/14/16 11/25/16 History 11/25/2016 Allergies Allergy/AdvReac Type Severity Reaction Status Date / Time No Known Allergies Allergy Verified 11/25/16 12:49 Exam - Vital Signs Vital signs: Vital Signs Temp Pulse Pulse Resp BP BP Pulse Ox 11/25/16 16:26 97.1 F L 99 18 163/119 100 11/25/16 15:44 97 F L 61 20 99/48 11/25/16 15:15 63 18 77/40 11/25/16 15:00 97 F L 77 20 78/42 11/25/16 14:15 97.7 F 74 18 80/42 99 Intake and Output 11/25/16 11/25/16 11/25/16 06:59 14:59 22:59 Intake Total 0 Balance 0 Intake: Blood Product 0 Rc As-1 Unit 0 [id number] Other: Weight 132.5 kg Patient Weight 11/26/16 06:59 Weight 132.5 kg Please see my full dictation under HPI, thank you Results Result Diagrams: 11/25/16 11:36 11/25/16 11:36 Abnormal Lab Results - Last 24 Hours (Table) 11/25/16 Range/Units 14:41 POC Glucose (mg/dL) 125 H (75-99) mg/dL Assessment and Plan Plan: Continue close medical management. We'll continue to follow the patient carefully with team.acked red blood cells have been ordered at this time, and efforts to reverse coagulation are underway. Time with Patient: Greater than 30
[2016-11-25] MEDS: INSULIN LISPRO (humaLOG) 300 UNIT/3 ML VIAL SQ SCH (17:18)
[2016-11-25] MEDS: metFORMIN 500 MG TAB PO SCH (17:56)
[2016-11-25] MEDS: SODIUM CHLORIDE 0.9% 1,000 ML IV SCH (17:56)
[2016-11-25 17:59] LABS: CH 29.4; CHCM 31.4; HCT 22.3 % (34.0-46.0); HDW 2.76; HGB 7.1 gm/dL (11.4-16.0); Hypochromasia Slight; MCH 30.3 pg (25.0-35.0); MCHC 32.1 g/dL (31.0-37.0); MCV 94.3 fL (80.0-100.0); Mean Platelet Volume 9.1; RBC 2.36 m/uL (3.80-5.40); RDW 13.9 % (11.5-15.5); WBC 12.2 k/uL (3.8-10.6)
--- NOTE | 2016-11-25 18:09 | P.HPIM ---
History of Present Illness H&P Date: 11/25/16 Chief Complaint: near syncope This is a pleasant 4H are old lady patient of Dr. Ledesma, she has underlying history of MTHFR mutation, asthma, diabetes mellitus type 2, hypertension and 1 episode ofpulmonary emboli 4 years ago. She underwent at total abdominal hysterectomy bilateral salpingo-oophorectomy by Dr. 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 Prior to this she was chronically on Coumadin for the past 4 years until she was bridge for the procedure. Postoperatively she developed low blood pressure reading and EKG shows new onset atrial fibrillation with known history of left bundle branch block managed at selective care unit. She had required amiodarone drip secondary to rapid ventricular rate atrial fibrillation and was seen by cardiology at that time. She had medications that were titrated down including amiodarone, and was discharged to continue on Lovenox at 1 mg/kg every 12 hours with bridging Coumadin dosing. Her INR on discharge was 1.5 She was seen in emergency room secondary to dizziness and lightheadedness. Patient was at bathroom at that time and had a near syncopal event, patient denies any head trauma or musculoskeletal extremity trauma, patient denies any syncope hemoglobin on admission was 6.1 with a prior hemoglobin of 8.4 taken 2 days prior. Baseline hemoglobin was 14.1 November 14. Patient was admitted secondary to symptomatic blood loss anemia 2 units packed red blood cell was ordered with holding of Lovenox and Coumadin, consult with Dr. Suazo and cardiology, INR on admission 1.9 protamine given in the emergency room for Lovenox reversal, Creatinine also was elevated 2.8 from a previous of 1.34 taken 2 days prior to admission, baseline 1.1 Review of Systems Constitutional: Reports anorexia, Reports fatigue Ears, nose, mouth and throat: Reports ant. neck pain Cardiovascular: Reports as per HPI, Reports decreased exercise tolerance, Reports shortness of breath, Denies chest pain, Denies claudication, Denies dyspnea on exertion, Denies edema, Denies high blood pressure, Denies irregular heart beat, Denies leg edema, Denies lightheadedness, Denies orthopnea, Denies palpitations, Denies paroxysmal nocturnal dyspnea, Denies phlebitis, Denies rapid heart beat, Denies syncope Respiratory: Reports as per HPI, Denies congestion, Denies cough, Denies cough with sputum, Denies dyspnea, Denies excessive sputum, Denies hemoptysis, Denies home oxygen, Denies pain, Denies pain on inspiration, Denies pleurisy, Denies respiratory infections, Denies sleep apnea, Denies snoring, Denies wheezing Gastrointestinal: Reports as per HPI, Denies abdominal pain, Denies belching, Denies bloating, Denies BRBPR, Denies change in bowel habits, Denies coffee ground emesis, Denies constipation, Denies diarrhea, Denies dyspepsia, Denies early satiety, Denies excessive gas, Denies heartburn, Denies hematemesis, Denies hematochezia, Denies indigestion, Denies jaundice, Denies lactose intolerance, Denies loss of appetite, Denies melena, Denies nausea, Denies vomiting Genitourinary: Reports as per HPI, Reports abnormal vaginal bleeding, Denies decreased libido, Denies difficulty conceiving, Denies difficulty voiding, Denies dysmenorrhea, Denies dyspareunia, Denies dysuria, Denies flank pain, Denies genital sores, Denies hematuria, Denies hot flashes, Denies incomplete emptying, Denies kidney stones, Denies menorrhagia, Denies mixed incontinence, Denies nocturia, Denies pelvic pain, Denies post void dribbling, Denies , Denies prolapse symptoms, Denies stress incontinence, Denies urge incontinence , Denies urgency, Denies urinary frequency, Denies vaginal discharge, Denies vaginal dryness, Denies vaginal itching, Denies vaginal odor Menstruation: Reports as per HPI, Denies amenorrhea, Denies amenorrhea on BC, Denies currently menstrual, Denies cycle < 21 days, Denies cycle > 35 days, Denies cycle variable, Denies menses 1-7 days, Denies menses 8 or > days, Denies menses variable, Denies period heavy, Denies period light, Denies period normal, Denies period spotting, Denies post hysterectomy, Denies postmenopausal , Denies premenarcheal Musculoskeletal: Reports as per HPI, Denies arm numbness/tingling, Denies atrophy, Denies fractures, Denies frequent falls, Denies gait dysfunction, Denies hot joints, Denies leg numbness/tingling, Denies limitation of motion, Denies loss of height, Denies low back pain, Denies morning stiffness, Denies muscle cramps, Denies muscle weakness, Denies myalgias, Denies neck pain, Denies neck stiffness, Denies prior amputations, Denies redness of joints, Denies shooting arm pain, Denies shooting leg pain Integumentary: Reports as per HPI, Denies acne, Denies boils, Denies brittle nails, Denies change in hair/nails, Denies color changes, Denies darkening of skin, Denies depigmentation, Denies dryness, Denies foot/leg ulcers, Denies growths, Denies hirsutism, Denies lesions, Denies onychomycosis, Denies pruritus , Denies rash, Denies sores, Denies striae, Denies unusual bruising, Denies wounds Neurological: Reports as per HPI, Denies aphasia, Denies ataxia, Denies balance difficulties, Denies burning pain, Denies change in mentation, Denies change in smell/taste, Denies change in speech, Denies confusion, Denies convulsions, Denies double vision, Denies gait dysfunction, Denies head injury, Denies headaches, Denies hearing difficulties, Denies lack of coordination, Denies loss of vision, Denies memory loss, Denies migraines, Denies motor disturbance, Denies numbness, Denies paralysis, Denies paresthesias, Denies seizures, Denies sensory deficit, Denies spasticity, Denies syncope, Denies tic, Denies tingling , Denies transient paralysis, Denies tremors, Denies vertigo, Denies weakness, Denies visual changes Psychiatric: Reports as per HPI, Denies anhedonia, Denies anxiety, Denies anxiety attacks, Denies change in appetite, Denies change in libido, Denies change in sleep habits, Denies confusion, Denies depression, Denies difficulty concentrating, Denies disorientation, Denies hallucinations, Denies hopelessness , Denies hypersomnia, Denies insomnia, Denies irritability, Denies memory loss, Denies mood swings, Denies paranoia, Denies sadness/tearfulness, Denies sleep disturbances, Denies suicidal ideation Endocrine: Reports as per HPI, Denies cold intolerance, Denies deepening of the voice, Denies excessive sweating, Denies excessive thirst, Denies fatigue, Denies flushing, Denies heat intolerance, Denies high blood sugars, Denies increase in ring/shoe/hat size, Denies low blood sugars, Denies nocturia, Denies palpitations, Denies polydipsia, Denies polyphagia, Denies polyuria, Denies proptosis, Denies recent glucocorticoid use, Denies thyroid mass, Denies weight change Hematologic/Lymphatic: Reports as per HPI, Reports easy bleeding, Denies easy bruising, Denies lymphadenopathy, Denies lymphedema, Denies thrombophilia Allergic/Immunologic: Reports as per HPI, Denies allergic rhinitis, Denies anaphylaxis, Denies angioedema, Denies gluten intolerance, Denies persistent infections, Denies seasonal allergies, Denies urticaria, Denies wheezing Past Medical History Past Medical History: Asthma, Diabetes Mellitus, Hypertension, Pulmonary Embolus (PE) Additional Past Medical History / Comment(s): MTHFR gene mutation History of Any Multi-Drug Resistant Organisms: None Reported Past Surgical History: Breast Surgery, Section, Hysterectomy, Orthopedic Surgery Additional Past Surgical History / Comment(s): RIGHT ANKLE-PINS AND PLATE breast biopsy Past Anesthesia/Blood Transfusion Reactions: No Reported Reaction Additional Past Anesthesia/Blood Transfusion Reaction / Comment(s): no hx blood transfusion Past Psychological History: No Psychological Hx Reported Smoking Status: Never smoker Past Alcohol Use History: Rare Additional Past Alcohol Use History / Comment(s): Patient denies any history of smoking, medical marijuana, marijuana, street drug or alcohol use. 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 Past Drug Use History: None Reported - Past Family History Mother Family Medical History: No Reported History Additional Family Medical History / Comment(s): Mother at age 88 from sepsis. Brother(s) Family Medical History: Myocardial Infarction ([place]) Additional Family Medical History / Comment(s): Brother at age 49 from myocardial infarction. Father Additional Family Medical History / Comment(s): Father at age 57 from a myocardial infarction. Sister(s) Additional Family Medical History / Comment(s): He has one sister alive but has never been tested for MTHFR gene mutation. Son(s) Additional Family Medical History / Comment(s): She has 2 sons and 1 daughter with no major medical problems. Medications and Allergies Home Medications Medication Instructions Recorded Confirmed Type Zczaeqkwembpjj-[id number] 1 tab PO HS 09/10/16 11/25/16 History [Folbic] Diltiazem Cd [Cardizem CD] 180 mg PO QAM 09/10/16 11/25/16 History Metoprolol Tartrate [Lopressor] 12.5 mg PO BID 09/10/16 11/25/16 History Warfarin [Coumadin] 2.5 mg PO SUTUTHSA 09/10/16 11/25/16 History Warfarin [Coumadin] 5 mg PO MOWEFR 09/10/16 11/25/16 History metFORMIN HCL [Glucophage] 500 mg PO BID 09/10/16 11/25/16 History Albuterol Inhaler [Ventolin Hfa 1 - 2 puff INHALATION RT-Q6H PRN 09/11/16 History Inhaler] ALPRAZolam [Xanax] 0.25 mg PO TID PRN 09/13/16 11/25/16 History Enoxaparin [Lovenox] 120 mg SQ Q12H MDD FINAL DOSE 11/14/16 11/25/16 History 11/25/2016 Allergies Allergy/AdvReac Type Severity Reaction Status Date / Time No Known Allergies Allergy Verified 11/25/16 12:49 Physical Exam Vitals: Vital Signs Temp Pulse Resp BP Pulse Ox 11/25/16 15:15 63 18 77/40 11/25/16 15:00 97 F L 77 20 78/42 11/25/16 14:15 97.7 F 74 18 80/42 99 Intake and Output 11/25/16 11/25/16 11/25/16 06:59 14:59 22:59 Intake Total 0 Balance 0 Intake: Blood Product 0 Rc As-1 Unit 0 [id number] - Constitutional General appearance: cooperative, no acute distress, obese - EENT Eyes: anicteric sclerae, EOMI, PERRLA, dentition normal, normal appearance ENT: no hard of hearing, hearing grossly normal, NA/AT, normal oropharynx, no other, no pharyngeal erythema, no thrush, no tonsillar exudates, no tonsillar swelling - Neck Neck: no lymphadenopathy, normal ROM, no other, no rigidity, no stridor, no thyromegaly - Respiratory Respiratory: bilateral: CTA, negative: diminished, dullness, rales - Gastrointestinal General gastrointestinal: soft (Aquacel silver dressing in place however is not soaked) - Integumentary Integumentary: decreased turgor, normal, pale - Neurologic Neurologic: CNII-XII intact - Musculoskeletal Musculoskeletal: gait normal, strength equal bilaterally, right sided weakness - Psychiatric Psychiatric: A&O x's 3, appropriate affect, intact judgment & insight Results CBC & Chem 7: 11/25/16 16:32 11/25/16 11:36 Labs: Abnormal Lab Results - Last 24 Hours (Table) 11/25/16 Range/Units 14:41 POC Glucose (mg/dL) 125 H (75-99) mg/dL Laboratory Results WBC 12.2 k/uL (3.8-10.6) H 11/25/16 16:32 RBC 2.36 m/uL (3.80-5.40) L 11/25/16 16:32 Hgb 7.1 gm/dL (11.4-16.0) L 11/25/16 16:32 Hct 22.3 % (34.0-46.0) L 11/25/16 16:32 MCV 94.3 fL (80.0-100.0) 11/25/16 16:32 MCH 30.3 pg (25.0-35.0) 11/25/16 16:32 MCHC 32.1 g/dL (31.0-37.0) 11/25/16 16:32 RDW 13.9 % (11.5-15.5) 11/25/16 16:32 Plt Count 275 k/uL (150-450) 11/25/16 16:32 Neutrophils % 74 % 11/25/16 11:36 Lymphocytes % 20 % 11/25/16 11:36 Monocytes % 4 % 11/25/16 11:36 Eosinophils % 1 % 11/25/16 11:36 Basophils % 0 % 11/25/16 11:36 Neutrophils # 7.8 k/uL (1.3-7.7) H 11/25/16 11:36 Lymphocytes # 2.1 k/uL (1.0-4.8) 11/25/16 11:36 Monocytes # 0.4 k/uL (0-1.0) 11/25/16 11:36 Eosinophils # 0.1 k/uL (0-0.7) 11/25/16 11:36 Basophils # 0.0 k/uL (0-0.2) 11/25/16 11:36 Hypochromasia Slight 11/25/16 16:32 PT 18.1 sec (9.0-12.0) H 11/25/16 11:36 INR 1.9 (<1.1) 11/25/16 11:36 APTT 32.8 sec (22.0-30.0) H 11/25/16 11:36 Sodium 135 mmol/L (137-145) L 11/25/16 11:36 Potassium 5.2 mmol/L (3.5-5.1) H 11/25/16 11:36 Chloride 108 mmol/L (98-107) H 11/25/16 11:36 Carbon Dioxide 21 mmol/L (22-30) L 11/25/16 11:36 Anion Gap 6 mmol/L 11/25/16 11:36 BUN 44 mg/dL (7-17) H 11/25/16 11:36 Creatinine 2.82 mg/dL (0.52-1.04) H 11/25/16 11:36 Est GFR (MDRD) Af Amer 20 (>60 ml/min/1.73 sqM) 11/25/16 11:36 Est GFR (MDRD) Non-Af 17 (>60 ml/min/1.73 sqM) 11/25/16 11:36 Glucose 128 mg/dL (74-99) H 11/25/16 11:36 POC Glucose (mg/dL) 110 mg/dL (75-99) H 11/25/16 17:04 POC Glu Store Team Member ID Marlene Rouse 11/25/16 17:04 Calcium 8.1 mg/dL (8.4-10.2) L 11/25/16 11:36 Total Bilirubin 0.5 mg/dL (0.2-1.3) 11/25/16 11:36 AST 34 U/L (14-36) 11/25/16 11:36 ALT 57 U/L (9-52) H 11/25/16 11:36 Alkaline Phosphatase 44 U/L (38-126) 11/25/16 11:36 Total Creatine Kinase 235 U/L (30-135) H 11/25/16 11:36 CK-MB (CK-2) 0.8 ng/mL (0.0-2.4) 11/25/16 11:36 CK-MB (CK-2) Rel Index 0.3 11/25/16 11:36 Troponin I <0.012 ng/mL (0.000-0.034) 11/25/16 11:36 Total Protein 4.7 g/dL (6.3-8.2) L 11/25/16 11:36 Albumin 2.5 g/dL (3.5-5.0) L 11/25/16 11:36 Blood Type A Positive 11/25/16 11:36 Blood Type Recheck No 11/25/16 11:36 Antibody Screen NEGATIVE 11/25/16 11:36 Crossmatch See Detail 11/25/16 11:36 Spec Expiration Date 11/28/2016233511/25/16 11:36 Thrombosis Risk Factor Assmnt - DVT/VTE Prophylaxis DVT/VTE Prophylaxis: Mechanical Prophylaxis ordered, Contraindicated - See note - Choose All That Apply Each Risk Factor Represents 2 Points: Age 61-74 years, Laparoscopic surgery, Patient confined to bed Each Risk Factor Represents 3 Points: History of DVT/PE Thrombosis Risk Factor Assessment Total Risk Factor Score: 9 Thrombosis Risk Factor Assessment Level: High Risk Assessment and Plan Plan: 1. Symptomatic blood loss anemia presenting with severe low hemoglobin of 6.1 from a prior of 8.4 taken 2 days prior to admission baseline of 14.1 patient to be transfused 2 units packed red blood cell, iron studies, H&H every 6 hours, agent might need iron infusion , discontinue Lovenox (she was dosed at 1 mg/kg every 12 equal to 120 mg every 12 )prior to admission and Coumadin are held secondary to significant significant blood loss consult was made with Dr. Suazo.. Protamine was given in the emergency room x1 Based on her significant to pulmonary emboli's and a pelvic surgery, she would need DVT prophylaxis once the INR is down to 1.5, Lovenox 40 mg daily is appropriate and would probably cautiously start Coumadin patient patient for bridging( 7-10 days after hemoglobin stabilizes 2. Focal grade 2 noninvasive endometrioid carcinoma status post total abdominal hysterectomy and salpingo-oophorectomy last 11/19/2016. I discussed this with Dr. Suazo, speculum inspection speculum inspection of the vaginal area shows a small clot with intact incision, no active signs of bleeding after the clot was removed, homeostasis is appropriate, also pathology was reviewed with Dr. Suazo, oncology will be consulted during this admission 3. MTHFR gene mutation with prior history of pulmonary embolusx2 , she is at risk for postoperative venous thromboembolism, once the INR is under 1.5, we could start her on Lovenox 40 mg daily. 4. Atrial fibrillation history, currently on amiodarone tapering dose per her last admission 11/19/2016, cardiology is on consult last echocardiogram 2016 showed ejection fraction of 40-45% and mild MR and mild TR RV S/P less than 35, normal pericardium 5. Hypertension with hypotension. With this, near syncope related orthostasis with hemodynamic instability secondary to blood loss anemia along with the use of antihypertensive agents, no ongoing other losses except for postoperative anemia, hold lisinopril 20 mg twice daily, hold Cardizem CD 180 mg daily. Continue metoprolol 12.5 twice a day. Fluid boluses given along with with blood transfusion 6. Diabetes mellitus type II. Continue metformin. 7. Asthma, mild intermittent. Continue albuterol inhaler as needed. 8. VTE prophylaxis. as above, risk for DVT Clarisse score of 9, await for normalizing INR, Lovenox to be started at 40 mg dailythereafter once INR is equal to or under 1.5 9. Gastrointestinal prophylaxis, Pepcid. 10. Proximal atrial fibrillation with episodes of A. fib with RVR. Cardiology consult. Oral amiodarone, metoprolol tartrate 12.5 mg twice daily, Cardizem CD 180 mg 11. Acute kidney injury possibly due to hypotension. iv hydration, Labs to be monitored 12. Mild protein malnutrition, acute light abnormalities with hypocalcemia, hyperkalemia, I pointed 3 anemia. Elevated CPK Labs monitored monitor for rhabdo and further decompensation
[2016-11-25 18:51] LABS: % Iron Saturation 16.1 % (20-50)
[2016-11-25] MEDS ORDERED: PHYTONADIONE ORAL 5 MG/5 ML ORAL.SYRG PO STA (20:11)
[2016-11-25 23:12] LABS: CH 29.2; HCT 23.4 % (34.0-46.0); HDW 3.02; HGB 7.6 gm/dL (11.4-16.0); Hypochromasia Slight; MCH 29.9 pg (25.0-35.0); MCHC 32.5 g/dL (31.0-37.0); Mean Platelet Volume 7.4; RBC 2.55 m/uL (3.80-5.40); RDW 14.9 % (11.5-15.5); WBC 13.7 k/uL (3.8-10.6)
[2016-11-25] MEDS ORDERED: SODIUM CHLORIDE 0.9% 1,000 ML IV ONE (23:33)
[2016-11-25] MEDS ORDERED: NOREPINEPHRIN 4 MG-0.9% NS PMX 4 MG/250 ML ML IV ONE (23:45)
[2016-11-25] MEDS: NOREPINEPHRIN 4 MG-0.9% NS PMX 4 MG/250 ML ML IV SCH (23:50)
[2016-11-26] LABS: Glucose,Whole Blood 118 mg/dL (75-99)
[2016-11-26 01:14] LABS: INR 1.3 (<1.1)
[2016-11-26] MEDS ORDERED: Phosphorus Replacement Protoco 1 EACH MISC MISCELLANE PRN (02:57)
[2016-11-26] MEDS ORDERED: IPRATROPIUM-ALBUTEROL 3 ML NEB INHALATION PRN (02:57)
[2016-11-26] MEDS ORDERED: Potassium Replacement Protocol 1 EACH MISC MISCELLANE PRN (02:57)
[2016-11-26] MEDS ORDERED: Magnesium Replacement Protocol 1 EACH MISC MISCELLANE PRN (02:57)
[2016-11-26] MEDS: INSULIN LISPRO (humaLOG) 300 UNIT/3 ML VIAL SQ SCH ×5 (03:00→22:08)
[2016-11-26] MEDS: METOPROLOL TARTRATE 12.5 MG TAB PO SCH ×3 (03:00→22:07)
[2016-11-26] MEDS: AMIODARONE 200 MG TAB PO SCH ×3 (03:00→22:07)
[2016-11-26] MEDS: NOREPINEPHRIN 4 MG-0.9% NS PMX 4 MG/250 ML ML IV SCH ×3 (04:51→15:22)
[2016-11-26] MEDS: IPRATROPIUM-ALBUTEROL 3 ML NEB INHALATION SCH ×5 (05:14→20:43)
[2016-11-26 05:21] LABS: Calcium 7.5 mg/dL (8.4-10.2); Magnesium 1.8 mg/dL (1.6-2.3); Potassium 5.3 mmol/L (3.5-5.1); Total Bilirubin 0.7 mg/dL (0.2-1.3); Total Protein 4.4 g/dL (6.3-8.2)
[2016-11-26 05:38] LABS: Basophils # (A) 0.1 k/uL (0-0.2); Basophils % (A) 1 %; CH 29.2; CHCM 32.8; Eosinophils # (A) 0.1 k/uL (0-0.7); Eosinophils % (A) 1 %; HCT 23.5 % (34.0-46.0); HDW 3.31; HGB 7.7 gm/dL (11.4-16.0); Luc # (Auto) 0.21; Luc % (Auto) 1; Lymphocytes # (A) 3.7 k/uL (1.0-4.8); Lymphocytes % (A) 19 %; MCH 29.2 pg (25.0-35.0); MCHC 32.5 g/dL (31.0-37.0); MCV 89.9 fL (80.0-100.0); Monocytes % (A) 5 %; Neutrophils # (A) 14.6 k/uL (1.3-7.7); Neutrophils % (A) 74 %; RBC 2.62 m/uL (3.80-5.40); RDW 15.4 % (11.5-15.5); WBC 19.7 k/uL (3.8-10.6); WBC (Perox) 19.44
[2016-11-26 06:21] LABS: INR 1.4 (<1.1); Prothrombin Time 13.5 sec (9.0-12.0)
[2016-11-26 07:29] LABS: Glucose,Whole Blood 137 mg/dL (75-99)
--- NOTE | 2016-11-26 08:28 | P.PN ---
Subjective Principal diagnosis: Postoperative day #7, vaginal bleeding on anticoagulation, anemia, atrial fibrillation. Staff reports continued vaginal bleeding, changing pads every hour. Patient is feeling tired, otherwise no complaints. Objective - Vital Signs Vital signs: Vital Signs Temp 98.1 F 11/26/16 04:00 Pulse 85 11/26/16 07:00 Resp 16 11/26/16 07:00 BP 100/58 11/26/16 07:00 Pulse Ox 100 11/26/16 07:00 Intake & Output 11/25/16 11/26/16 11/26/16 18:59 06:59 18:59 Intake Total 0 2162.937 50 Output Total 182 32 Balance 0 1980.937 18 Weight 132.5 kg 136.1 kg Intake: Intake, IV Titration 1542.937 50 Amount Norepinephrin 4 mg-0.9% 192.937 Ns Pmx 4 mg In 250 ml @ Titrate IV .Q0M [facility] Rx#: [id number] Sodium Chloride 0.9% 1, 350 50 000 ml @ 50 mls/hr IV . Q20H [facility] Rx#:[id number] Sodium Chloride 0.9% 1, 1000 000 ml @ 999 mls/hr IV . Q1H1M [facility] Rx#:[id number] Blood Product 0 620 Rc As-1 Unit 0 310 [id number] Rc As-1 Unit 310 [id number] Rc As-1 Unit 0 [id number] Output: Urine 182 32 Other: Voiding Method Indwelling Catheter # Voids 1 - Constitutional General appearance: Present: morbidly obese - EENT Eyes: Present: PERRLA ENT: Present: hearing grossly normal - Neck Neck: Present: normal ROM - Respiratory Respiratory: bilateral: CTA - Cardiovascular Rhythm: other (Intermittent runs of atrial fibrillation) Heart sounds: normal: S1, S2 - Gastrointestinal General gastrointestinal: Present: normal bowel sounds, soft - Genitourinary Genitourinary Comment(s): Vaginal speculum placed. Good visualization of the vaginal vault. 25-50 mL of dark clot removed. Vagina packed with iodoform gauze, 1 inch, no active bleeding noted on inspection. - Integumentary Integumentary: Present: normal, normal turgor - Neurologic Neurologic: Present: CNII-XII intact - Musculoskeletal Musculoskeletal: Present: strength equal bilaterally - Psychiatric Psychiatric: Present: A&O x's 3, appropriate affect, intact judgment & insight - Labs CBC & Chem 7: 11/26/16 04:52 11/26/16 04:52 Labs: Abnormal Lab Results - Last 24 Hours (Table) 11/25/16 11/25/16 11/25/16 Range/Units 14:41 16:32 17:04 WBC 12.2 H (3.8-10.6) k/uL RBC 2.36 L (3.80-5.40) m/uL Hgb 7.1 L (11.4-16.0) gm/dL Hct 22.3 L (34.0-46.0) % Neutrophils # (1.3-7.7) k/uL PT (9.0-12.0) sec Sodium (137-145) mmol/L Potassium (3.5-5.1) mmol/L Chloride (98-107) mmol/L Carbon Dioxide (22-30) mmol/L BUN (7-17) mg/dL Creatinine (0.52-1.04) mg/dL Glucose (74-99) mg/dL POC Glucose (mg/dL) 125 H 110 H (75-99) mg/dL Calcium (8.4-10.2) mg/dL Phosphorus (2.5-4.5) mg/dL AST (14-36) U/L Total Protein (6.3-8.2) g/dL Albumin (3.5-5.0) g/dL 11/25/16 11/25/16 11/26/16 Range/Units 22:55 23:58 00:45 WBC 13.7 H (3.8-10.6) k/uL RBC 2.55 L (3.80-5.40) m/uL Hgb 7.6 L (11.4-16.0) gm/dL Hct 23.4 L (34.0-46.0) % Neutrophils # (1.3-7.7) k/uL PT 13.0 H (9.0-12.0) sec Sodium (137-145) mmol/L Potassium (3.5-5.1) mmol/L Chloride (98-107) mmol/L Carbon Dioxide (22-30) mmol/L BUN (7-17) mg/dL Creatinine (0.52-1.04) mg/dL Glucose (74-99) mg/dL POC Glucose (mg/dL) 118 H (75-99) mg/dL Calcium (8.4-10.2) mg/dL Phosphorus (2.5-4.5) mg/dL AST (14-36) U/L Total Protein (6.3-8.2) g/dL Albumin (3.5-5.0) g/dL 11/26/16 11/26/16 11/26/16 Range/Units 04:52 04:52 05:48 WBC 19.7 H (3.8-10.6) k/uL RBC 2.62 L (3.80-5.40) m/uL Hgb 7.7 L (11.4-16.0) gm/dL Hct 23.5 L (34.0-46.0) % Neutrophils # 14.6 H (1.3-7.7) k/uL PT 13.5 H (9.0-12.0) sec Sodium 133 L (137-145) mmol/L Potassium 5.3 H (3.5-5.1) mmol/L Chloride 111 H (98-107) mmol/L Carbon Dioxide 13 L (22-30) mmol/L BUN 47 H (7-17) mg/dL Creatinine 3.40 H (0.52-1.04) mg/dL Glucose 126 H (74-99) mg/dL POC Glucose (mg/dL) (75-99) mg/dL Calcium 7.5 L (8.4-10.2) mg/dL Phosphorus 5.0 H (2.5-4.5) mg/dL AST 42 H (14-36) U/L Total Protein 4.4 L (6.3-8.2) g/dL Albumin 2.3 L (3.5-5.0) g/dL 11/26/16 Range/Units 07:27 WBC (3.8-10.6) k/uL RBC (3.80-5.40) m/uL Hgb (11.4-16.0) gm/dL Hct (34.0-46.0) % Neutrophils # (1.3-7.7) k/uL PT (9.0-12.0) sec Sodium (137-145) mmol/L Potassium (3.5-5.1) mmol/L Chloride (98-107) mmol/L Carbon Dioxide (22-30) mmol/L BUN (7-17) mg/dL Creatinine (0.52-1.04) mg/dL Glucose (74-99) mg/dL POC Glucose (mg/dL) 137 H (75-99) mg/dL Calcium (8.4-10.2) mg/dL Phosphorus (2.5-4.5) mg/dL AST (14-36) U/L Total Protein (6.3-8.2) g/dL Albumin (3.5-5.0) g/dL Assessment and Plan Plan: Continue medical management. Case discussed in detail with Dr. Marroquin. Time with Patient: Greater than 30
[2016-11-26] MEDS ORDERED: MAGNESIUM OXIDE 400 MG TAB PO STA (08:37)
[2016-11-26] MEDS: SODIUM CHLORIDE 0.9% 1,000 ML IV SCH ×5 (08:55→22:50)
[2016-11-26] MEDS: PANTOPRAZOLE 40 MG TABLET PO SCH (08:57)
[2016-11-26] MEDS: MAGNESIUM SULFATE-D5W PMX 1 GM in DEXTROSE/WATER 1 100ML.BAG IVPB SCH ×3 (08:58→23:52)
[2016-11-26] MEDS ORDERED: ENOXAPARIN 30 MG/0.3 ML SYRINGE SQ SCH (09:00)
[2016-11-26] MEDS ORDERED: SODIUM CHLORIDE 0.9% 500 ML IV ONE (09:09)
[2016-11-26] MEDS ORDERED: HYDROCORTISONE SUCCINATE 100 MG/2 ML VIAL IV STA (09:10)
--- NOTE | 2016-11-26 09:30 | P.CRDCN ---
History of Present Illness Consult date: 11/26/16 History of present illness: This is a pleasant 66-year-old female patient who just underwent hysterectomy about a week ago presented back to the hospital complaining of dizziness and lightheadedness. The patient is known to have hypercoagulopathy and she was taking Coumadin as an outpatient. She just underwent hysterectomy about a week ago. She was discharged home on Coumadin and Lovenox for bridging. Over the last 2 days she has been experiencing vagina bleeding. She started feeling dizzy and lightheaded and she came in to the emergency room where she was found to be severely anemic. She received 3 units of packed RBC. The Coumadin and Lovenox were stopped. She denies having any chest pain or discomfort or difficulty breathing or heart racing or fluttering. She is known to have paroxysmal atrial fibrillation and she had A. fib after the hysterectomy but currently she is in normal sinus mechanism. Hemodynamically, the patient is hypotensive and requiring a small dose of Levophed. I am going to increase the dose of amiodarone to 400 mg by mouth twice a day. I will hold the metoprolol by mouth in view of the hypotension. Anticoagulation is on hold at this point because of the severity anemia and bleeding. Past Medical History Past Medical History: Asthma, Diabetes Mellitus, Hypertension, Pulmonary Embolus (PE) Additional Past Medical History / Comment(s): MTHFR gene mutation History of Any Multi-Drug Resistant Organisms: None Reported Past Surgical History: Breast Surgery, Section, Hysterectomy, Orthopedic Surgery Additional Past Surgical History / Comment(s): RIGHT ANKLE-PINS AND PLATE breast biopsy Past Anesthesia/Blood Transfusion Reactions: No Reported Reaction Additional Past Anesthesia/Blood Transfusion Reaction / Comment(s): no hx blood transfusion Past Psychological History: No Psychological Hx Reported Smoking Status: Never smoker Past Alcohol Use History: Rare Additional Past Alcohol Use History / Comment(s): Patient denies any history of smoking, medical marijuana, marijuana, street drug or alcohol use. 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 Past Drug Use History: None Reported - Past Family History Mother Family Medical History: No Reported History Additional Family Medical History / Comment(s): Mother at age 88 from sepsis. Brother(s) Family Medical History: Myocardial Infarction ([place]) Additional Family Medical History / Comment(s): Brother at age 49 from myocardial infarction. Father Additional Family Medical History / Comment(s): Father at age 57 from a myocardial infarction. Sister(s) Additional Family Medical History / Comment(s): He has one sister alive but has never been tested for MTHFR gene mutation. Son(s) Additional Family Medical History / Comment(s): She has 2 sons and 1 daughter with no major medical problems. Medications and Allergies Home Medications Medication Instructions Recorded Confirmed Type Txrzfqwsqkbfil-SV-Ghmvhgdkwv 1 tab PO HS 09/10/16 11/25/16 History [Folbic] Diltiazem Cd [Cardizem CD] 180 mg PO QAM 09/10/16 11/25/16 History Metoprolol Tartrate [Lopressor] 12.5 mg PO BID 09/10/16 11/25/16 History Warfarin [Coumadin] 2.5 mg PO SUTUTHSA 09/10/16 11/25/16 History Warfarin [Coumadin] 5 mg PO MOWEFR 09/10/16 11/25/16 History metFORMIN HCL [Glucophage] 500 mg PO BID 09/10/16 11/25/16 History Albuterol Inhaler [Ventolin Hfa 1 - 2 puff INHALATION RT-Q6H PRN 09/11/16 History Inhaler] ALPRAZolam [Xanax] 0.25 mg PO TID PRN 09/13/16 11/25/16 History Enoxaparin [Lovenox] 120 mg SQ Q12H MDD FINAL DOSE 11/14/16 11/25/16 History 11/25/2016 Allergies Allergy/AdvReac Type Severity Reaction Status Date / Time No Known Allergies Allergy Verified 11/25/16 12:49 Physical Exam Vitals: Vital Signs Temp Pulse Pulse Pulse Resp BP BP 11/26/16 08:30 72 17 99/49 11/26/16 08:15 71 16 94/51 11/26/16 08:00 98.4 F 78 15 107/34 11/26/16 07:00 85 16 100/58 11/26/16 06:00 68 15 94/44 11/26/16 05:00 67 13 101/66 11/26/16 04:00 98.1 F 70 17 90/51 11/26/16 03:00 72 13 87/54 11/26/16 02:30 76 16 92/46 11/26/16 02:00 71 20 92/54 11/26/16 01:30 67 19 98/47 11/26/16 01:00 88 24 74/45 11/26/16 00:30 70 14 87/51 11/26/16 00:00 98.7 F 73 16 67/43 11/25/16 23:30 76 15 63/45 11/25/16 23:06 80 18 79/41 11/25/16 22:57 79 18 87/45 11/25/16 22:53 80 18 85/45 11/25/16 22:48 80 18 73/35 11/25/16 22:46 78 18 71/41 11/25/16 22:44 78 18 72/37 11/25/16 22:42 81 18 72/37 11/25/16 22:41 81 18 67/31 11/25/16 21:21 97.8 F 75 18 94/43 11/25/16 20:51 98.4 F 77 18 84/46 11/25/16 20:41 97.5 F L 78 18 86/48 11/25/16 20:40 97.5 F L 79 18 87/43 11/25/16 20:34 11/25/16 20:00 97.8 F 78 18 88/45 11/25/16 18:55 97.7 F 72 16 76/39 11/25/16 18:25 97.5 F L 66 16 76/42 11/25/16 18:15 97.7 F 70 16 87/39 11/25/16 16:26 97.1 F L 99 18 163/119 11/25/16 16:10 98.2 F 89 16 98/37 11/25/16 15:44 97 F L 61 20 99/48 11/25/16 15:15 63 18 77/40 11/25/16 15:00 97 F L 77 20 78/42 11/25/16 14:15 97.7 F 74 18 80/42 Pulse Ox 11/26/16 08:30 99 11/26/16 08:15 95 11/26/16 08:00 99 11/26/16 07:00 100 11/26/16 06:00 97 11/26/16 05:00 100 11/26/16 04:00 98 11/26/16 03:00 100 11/26/16 02:30 100 11/26/16 02:00 100 11/26/16 01:30 100 11/26/16 01:00 100 11/26/16 00:30 100 11/26/16 00:00 98 11/25/16 23:30 98 11/25/16 23:06 11/25/16 22:57 11/25/16 22:53 11/25/16 22:48 11/25/16 22:46 11/25/16 22:44 98 11/25/16 22:42 99 11/25/16 22:41 100 11/25/16 21:21 100 11/25/16 20:51 100 11/25/16 20:41 100 11/25/16 20:40 100 11/25/16 20:34 100 11/25/16 20:00 11/25/16 18:55 11/25/16 18:25 100 11/25/16 18:15 100 11/25/16 16:26 100 11/25/16 16:10 100 11/25/16 15:44 11/25/16 15:15 11/25/16 15:00 11/25/16 14:15 99 Intake and Output 11/25/16 11/26/16 11/26/16 22:59 06:59 14:59 Intake Total 620 1542.937 299.5 Output Total 182 52 Balance 620 1360.937 247.5 Intake: Intake, IV Titration 1542.937 299.5 Amount Norepinephrin 4 mg-0.9% 192.937 199.5 Ns Pmx 4 mg In 250 ml @ Titrate IV .Q0M [facility] Rx#: [id number] Sodium Chloride 0.9% 1, 350 100 000 ml @ 150 mls/hr IV . Q6H40M [facility] Rx#:[id number] Sodium Chloride 0.9% 1, 1000 000 ml @ 999 mls/hr IV . Q1H1M ONE Rx#:[id number] Blood Product 620 Rc As-1 Unit 310 [id number] Rc As-1 Unit 310 [id number] Rc As-1 Unit 0 [id number] Output: Urine 182 52 Other: Voiding Method Indwelling Catheter # Voids 1 Weight 132.5 kg 136.1 kg - Constitutional General appearance: no acute distress - Respiratory Respiratory: bilateral: CTA - Cardiovascular Rhythm: regular Heart sounds: normal: S1, S2 Results 11/26/16 04:52 11/26/16 04:52 Cardiac Enzymes 11/26/16 Range/Units 04:52 AST 42 H (14-36) U/L Coagulation 11/26/16 11/26/16 Range/Units 00:45 05:48 PT 13.0 H 13.5 H (9.0-12.0) sec CBC 11/25/16 11/25/16 11/26/16 Range/Units 16:32 22:55 04:52 WBC 12.2 H 13.7 H 19.7 H (3.8-10.6) k/uL RBC 2.36 L 2.55 L 2.62 L (3.80-5.40) m/uL Hgb 7.1 L 7.6 L 7.7 L (11.4-16.0) gm/dL Hct 22.3 L 23.4 L 23.5 L (34.0-46.0) % Plt Count 275 199 298 (150-450) k/uL Comprehensive Metabolic Panel 11/26/16 Range/Units 04:52 Sodium 133 L (137-145) mmol/L Potassium 5.3 H (3.5-5.1) mmol/L Chloride 111 H (98-107) mmol/L Carbon Dioxide 13 L (22-30) mmol/L BUN 47 H (7-17) mg/dL Creatinine 3.40 H (0.52-1.04) mg/dL Glucose 126 H (74-99) mg/dL Calcium 7.5 L (8.4-10.2) mg/dL AST 42 H (14-36) U/L ALT 51 (9-52) U/L Alkaline Phosphatase 38 (38-126) U/L Total Protein 4.4 L (6.3-8.2) g/dL Albumin 2.3 L (3.5-5.0) g/dL Current Medications Generic Name Dose Route Start Last Admin Trade Name Freq PRN Reason Stop Dose Admin Acetaminophen 650 mg 11/25/16 13:37 Tylenol Tab PO Q6HR PRN Mild Pain or Fever > 100.5 Acetaminophen/Codeine Phosphate 1 each 11/25/16 13:37 Tylenol #3 PO Q4HR PRN Moderate Pain Acetaminophen/Codeine Phosphate 1 each 11/25/16 15:46 Tylenol #3 PO Q4H PRN Moderate Pain Albuterol/Ipratropium 3 ml 11/26/16 02:57 Duoneb 0.5 Mg-3 Mg/3 Ml Soln INHALATION RT-Q2H PRN Shortness Of Breath Or Wheezing Albuterol/Ipratropium 3 ml 11/26/16 04:00 11/26/16 08:44 Duoneb 0.5 Mg-3 Mg/3 Ml Soln INHALATION 3 ml RT-Q4H [facility] Administration Alprazolam 0.25 mg 11/25/16 15:46 Xanax PO TID PRN Anxiety Amiodarone HCl 200 mg 11/25/16 21:00 11/26/16 08:57 Cordarone PO 200 mg BID [facility] Administration Folic Acid 1 each 11/26/16 21:00 Folbic PO HS [facility] Sodium Chloride 1,000 mls @ 150 mls/hr 11/25/16 13:45 11/26/16 08:56 Saline 0.9% IV 150 mls/hr .Q6H40M [facility] Administration Norepinephrine Bitartrate 4 mg in 250 mls @ 0 mls/hr 11/25/16 23:33 11/26/16 09:17 Levophed-0.9% Nacl 4 Mg/250ml Pmx IV 12 mcg/min .Q0M [facility] 45 mls/hr Protocol Administration Titrate Magnesium Sulfate/Dextrose 1 100 mls @ 100 mls/hr 11/26/16 08:30 11/26/16 09: 16 gm/ IV Solution IVPB 11/26/16 10:29 Not Given Q1H [facility] Sodium Chloride 500 mls @ 999 mls/hr 11/26/16 09:09 11/26/16 09:15 Saline 0.9% IV 11/26/16 09:39 999 mls/hr .Q31M ONE Administration Insulin Human Lispro 0 unit 11/25/16 17:30 11/26/16 08:56 Humalog SQ Not Given ACHS [facility] Protocol Metoprolol Tartrate 12.5 mg 11/25/16 21:00 11/26/16 03:00 Lopressor PO Not Given BID [facility] Miscellaneous Information 1 each 11/26/16 02:57 Magnesium Per Protocol MISCELLANE DAILY PRN Per Protocol Protocol Miscellaneous Information 1 each 11/26/16 02:57 Phosphorus Per Protocol MISCELLANE DAILY PRN Per Protocol Protocol Miscellaneous Information 1 each 11/26/16 02:57 Potassium Per Protocol MISCELLANE DAILY PRN Per Protocol Protocol Naloxone HCl 0.2 mg 11/25/16 13:37 Narcan IV Q2M PRN Opioid Reversal Ondansetron HCl 4 mg 11/25/16 13:37 Zofran IVP Q8HR PRN Nausea And Vomiting Pantoprazole Sodium 40 mg 11/26/16 07:30 11/26/16 08:57 Protonix PO 40 mg AC-BRKFST [facility] Administration Intake and Output 11/25/16 11/26/16 11/26/16 22:59 06:59 14:59 Intake Total 620 1542.937 299.5 Output Total 182 52 Balance 620 1360.937 247.5 Intake: Intake, IV Titration 1542.937 299.5 Amount Norepinephrin 4 mg-0.9% 192.937 199.5 Ns Pmx 4 mg In 250 ml @ Titrate IV .Q0M [facility] Rx#: [id number] Sodium Chloride 0.9% 1, 350 100 000 ml @ 150 mls/hr IV . Q6H40M [facility] Rx#:[id number] Sodium Chloride 0.9% 1, 1000 000 ml @ 999 mls/hr IV . Q1H1M [facility] Rx#:[id number] Blood Product 620 Rc As-1 Unit 310 [id number] Rc As-1 Unit 310 [id number] Rc As-1 Unit 0 [id number] Output: Urine 182 52 Other: Voiding Method Indwelling Catheter # Voids 1 Weight 132.5 kg 136.1 kg 11/26/16 04:52 11/26/16 04:52 Assessment and Plan Plan: Assessment Vagina bleeding Anemia secondary to the above Acute on chronic renal failure Paroxysmal atrial fibrillation Multiple comorbid conditions Plan Monitor the hemoglobin Continue holding anticoagulation The patient has been maintaining normal sinus mechanism Increase the dose of amiodarone are on DC metoprolol Follow-up with the patient
[2016-11-26 10:05] LABS: CH 29.5; CHCM 33.1; HCT 20.8 % (34.0-46.0); HDW 3.53; MCH 29.7 pg (25.0-35.0); MCV 89.8 fL (80.0-100.0); Mean Platelet Volume 7.9; Poikilocytosis Slight; RBC 2.31 m/uL (3.80-5.40); RDW 15.5 % (11.5-15.5); WBC 19.8 k/uL (3.8-10.6)
[2016-11-26 10:20] LABS: HGB 6.9 gm/dL (11.4-16.0)
[2016-11-26] MEDS ORDERED: SODIUM CHLORIDE 0.45% 1,000 ML with SODIUM BICARB (1 MEQ/ML) 100 ML IV SCH ×2 (10:30)
--- NOTE | 2016-11-26 10:49 | CONS ---
DATE OF CONSULTATION: 11/27/2016 REASON FOR CONSULT: Renal failure. HISTORY OF PRESENT ILLNESS: Patient is a 66-year-old female who was admitted to the hospital as she passed out at home. She is recently status post total abdominal hysterectomy and bilateral salpingo-oophorectomy on 11/22/2016. Patient was discharged home and she stated she developed significant bleeding and had large amount of clots at home. She was quite hypotensive and was noted to have a hemoglobin of 6.1 g/dL. Patient has been transfused 3 units packed RBCs and hemoglobin currently 7.7. She has had uterine packing done by Dr. Suazo. Patient's serum creatinine is at 3.40, previously it was at 1.1 on 11/14/2016. Patient had been on lisinopril prior to admission. PAST MEDICAL HISTORY: Hypertension, MTHFR mutation as well, type 2 diabetes, hypertension, obesity, history of PE, complex endometrial hyperplasia, status post bilateral salpingo-oophorectomy and abdominal hysterectomy. PAST SURGICAL HISTORY: Breast surgery, , surgery on the right ankle, breast biopsy. Social history is negative for smoking, drug abuse or alcohol abuse. Medications at home prior to admission included Cardizem, Coumadin, metformin, Xanax, Lovenox. ALLERGIES: None. On examination, patient is comfortable, awake, not in any acute distress. Blood pressure is 99/49, heart rate 72 per minute. She is afebrile. Examination of the heart S1 and S2. Examination of the lungs, bilateral breath sounds are heard. Abdomen is soft, obese. Some bruising is noted. Incision is currently dressed. 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 Patient is moving all 4 extremities. No edema noted in her lower extremities. Labs show sodium 133, potassium 5.3, chloride 111, CO2 is 13, BUN of 47, serum creatinine 3.4. Hemoglobin 7.7 g/dL. ASSESSMENT: 1. Acute kidney injury, acute tubular necrosis, currently nonoliguric secondary to hypotension, hypoperfusion. Will maintain patient on aggressive IV hydration, continue to wean off pressors as tolerated. No nephrotoxic agents on board. Patient will need to hold off on the MINE inhibitors. 2. Mild hyperkalemia associated with acute kidney injury. 3. Non- gap metabolic acidosis secondary to renal failure and hypotension, hypoperfusion. Start IV bicarb, lactic acidosis at 0.9. 4. Anemia secondary to uterine bleeding, status post 3 units packed RBC transfusion. 5. Iron deficiency noted with iron saturation at 16% on 11/25/2016. Patient has already had some iron with her packed RBC transfusion. Therefore, I will hold off on IV iron for now. Plan is change IV fluids to IV bicarb. Continue to avoid nephrotoxic agents and I will give her one dose of DDAVP, which can help with the bleeding in the setting of renal failure. Continue to wean off pressors as tolerated. Thank you for this consultation. Will continue to follow the patient with you during her hospitalization. NILO
[2016-11-26] MEDS: WATER FOR INJECTION, STERILE 1,000 ML with SODIUM ACETATE 150 MEQ IV SCH ×2 (11:24)
--- NOTE | 2016-11-26 11:25 | US ---
EXAMINATION TYPE: US kidneys/renal and bladder DATE OF EXAM: 11/26/2016 10:44 AM COMPARISON: Previous study dated 07/25/2016 CLINICAL HISTORY: elevated creatinine r/t hydronephrosis. EXAM MEASUREMENTS: Right Kidney: 11.2 x 5.1 x 4.8 cm Left Kidney: 12.4 x 5.2 x 4.7 cm Right Kidney: no evidence of hydronephrosis, perinephric fat noted Left Kidney: limited evaluation, no evidence of hydronephrosis Bladder: unable to visualize due to bandages from recent hysterectomy (patient has Bingham catheter) There is no evidence of hydronephrosis at this time. No sonographically apparent renal calculi are se en. The bladder is not assessed due to Bingham catheter. IMPRESSION: LIMITED BUT OTHERWISE UNREMARKABLE RENAL ULTRASOUND.
[2016-11-26] MEDS ORDERED: DESMOPRESSIN INJ 40 MCG in SODIUM CHLORIDE 0.9% 50 ML IVPB ONE (11:30)
--- NOTE | 2016-11-26 11:34 | P.PN ---
Subjective This is a pleasant 4H are old lady patient of Dr. Ledesma, she has underlying history of MTHFR mutation, asthma, diabetes mellitus type 2, hypertension and 1 episode of pulmonary emboli 4 years ago. She underwent at total abdominal hysterectomy bilateral salpingo-oophorectomy by Dr. 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 Prior to this she was chronically on Coumadin for the past 4 years until she was bridge for the procedure. Postoperatively she developed low blood pressure reading and EKG shows new onset atrial fibrillation with known history of left bundle branch block managed at selective care unit. She had required amiodarone drip secondary to rapid ventricular rate atrial fibrillation and was seen by cardiology at that time. She had medications that were titrated down including amiodarone, and was discharged to continue on Lovenox at 1 mg/kg every 12 hours with bridging Coumadin dosing. Her INR on discharge was 1.5 She was seen in emergency room secondary to dizziness and lightheadedness. Patient was at bathroom at that time and had a near syncopal event, patient denies any head trauma or musculoskeletal extremity trauma, patient denies any syncope hemoglobin on admission was 6.1 with a prior hemoglobin of 8.4 taken 2 days prior. Baseline hemoglobin was 14.1 November 14. Patient was admitted secondary to symptomatic blood loss anemia 2 units packed red blood cell was ordered with holding of Lovenox and Coumadin, consult with Dr. Suazo and cardiology, INR on admission 1.9 protamine given in the emergency room for Lovenox reversal, Creatinine also was elevated 2.8 from a previous of 1.34 taken 2 days prior to admission, baseline 1.1 11/26: Hemoglobin is 7.7 status post transfusion of 2 units of packed RBCs repeat hemoglobin 6.9. Patient will receive 1 more unit of packed RBCs. INR is 1.41. BUN is 47 creatinine 3.4. Consult added for nephrology and DDAVP has been ordered 1. Metformin discontinued. She has had low urine output and continued vaginal bleeding. He received another fluid bolus with improved urine output. Dr. Suazo has provided vaginal packing and vaginal bleeding is improved. Lovenox is scheduled to be resumed tomorrow. youth nutritional monitor is a sinus rhythm and cardiology is on consult. Dr. Mckeon has increased her amiodarone and metoprolol is on hold. She is currently on norepinephrine at 15 mics. Patient is reaching 2500 mL on IS. Patient encouraged to increase oral intake. Dr. Suazo has discussed in detail patient's pathology report and no chemotherapy or radiation is necessary. Objective - Vital Signs Vital signs: Vital Signs Temp 98.1 F 11/26/16 04:00 Pulse 85 11/26/16 07:00 Resp 16 11/26/16 07:00 BP 100/58 11/26/16 07:00 Pulse Ox 100 11/26/16 07:00 Intake & Output 11/25/16 11/26/16 11/26/16 18:59 06:59 18:59 Intake Total 0 2162.937 50 Output Total 182 32 Balance 0 1980.937 18 Weight 132.5 kg 136.1 kg Intake: Intake, IV Titration 1542.937 50 Amount Norepinephrin 4 mg-0.9% 192.937 Ns Pmx 4 mg In 250 ml @ Titrate IV .Q0M [facility] Rx#: [id number] Sodium Chloride 0.9% 1, 350 50 000 ml @ 50 mls/hr IV . Q20H [facility] Rx#:[id number] Sodium Chloride 0.9% 1, 1000 000 ml @ 999 mls/hr IV . Q1H1M [facility] Rx#:[id number] Blood Product 0 620 Rc As-1 Unit 0 310 [id number] Rc As-1 Unit 310 [id number] Rc As-1 Unit 0 [id number] Output: Urine 182 32 Other: Voiding Method Indwelling Catheter # Voids 1 - Exam General appearance: cooperative, no acute distress, obese - EENT Eyes: anicteric sclerae, EOMI, PERRLA, dentition normal, normal appearance ENT: no hard of hearing, hearing grossly normal, NA/AT, normal oropharynx, no other, no pharyngeal erythema, no thrush, no tonsillar exudates, no tonsillar swelling - Neck Neck: no lymphadenopathy, normal ROM, no other, no rigidity, no stridor, no thyromegaly - Respiratory Respiratory: bilateral: CTA, negative: diminished, dullness, rales - Gastrointestinal General gastrointestinal: soft (Aquacel silver dressing in place however is not soaked) - Integumentary Integumentary: decreased turgor, normal, pale - Neurologic Neurologic: CNII-XII intact - Musculoskeletal Musculoskeletal: gait normal, strength equal bilaterally, right sided weakness - Psychiatric Psychiatric: A&O x's 3, appropriate affect, intact judgment & insight - Labs CBC & Chem 7: 11/26/16 09:53 11/26/16 04:52 Labs: Abnormal Lab Results - Last 24 Hours (Table) 11/25/16 11/25/16 11/25/16 Range/Units 14:41 16:32 17:04 WBC 12.2 H (3.8-10.6) k/uL RBC 2.36 L (3.80-5.40) m/uL Hgb 7.1 L (11.4-16.0) gm/dL Hct 22.3 L (34.0-46.0) % Neutrophils # (1.3-7.7) k/uL PT (9.0-12.0) sec Sodium (137-145) mmol/L Potassium (3.5-5.1) mmol/L Chloride (98-107) mmol/L Carbon Dioxide (22-30) mmol/L BUN (7-17) mg/dL Creatinine (0.52-1.04) mg/dL Glucose (74-99) mg/dL POC Glucose (mg/dL) 125 H 110 H (75-99) mg/dL Calcium (8.4-10.2) mg/dL Phosphorus (2.5-4.5) mg/dL AST (14-36) U/L Total Protein (6.3-8.2) g/dL Albumin (3.5-5.0) g/dL 11/25/16 11/25/16 11/26/16 Range/Units 22:55 23:58 00:45 WBC 13.7 H (3.8-10.6) k/uL RBC 2.55 L (3.80-5.40) m/uL Hgb 7.6 L (11.4-16.0) gm/dL Hct 23.4 L (34.0-46.0) % Neutrophils # (1.3-7.7) k/uL PT 13.0 H (9.0-12.0) sec Sodium (137-145) mmol/L Potassium (3.5-5.1) mmol/L Chloride (98-107) mmol/L Carbon Dioxide (22-30) mmol/L BUN (7-17) mg/dL Creatinine (0.52-1.04) mg/dL Glucose (74-99) mg/dL POC Glucose (mg/dL) 118 H (75-99) mg/dL Calcium (8.4-10.2) mg/dL Phosphorus (2.5-4.5) mg/dL AST (14-36) U/L Total Protein (6.3-8.2) g/dL Albumin (3.5-5.0) g/dL 11/26/16 11/26/16 11/26/16 Range/Units 04:52 04:52 05:48 WBC 19.7 H (3.8-10.6) k/uL RBC 2.62 L (3.80-5.40) m/uL Hgb 7.7 L (11.4-16.0) gm/dL Hct 23.5 L (34.0-46.0) % Neutrophils # 14.6 H (1.3-7.7) k/uL PT 13.5 H (9.0-12.0) sec Sodium 133 L (137-145) mmol/L Potassium 5.3 H (3.5-5.1) mmol/L Chloride 111 H (98-107) mmol/L Carbon Dioxide 13 L (22-30) mmol/L BUN 47 H (7-17) mg/dL Creatinine 3.40 H (0.52-1.04) mg/dL Glucose 126 H (74-99) mg/dL POC Glucose (mg/dL) (75-99) mg/dL Calcium 7.5 L (8.4-10.2) mg/dL Phosphorus 5.0 H (2.5-4.5) mg/dL AST 42 H (14-36) U/L Total Protein 4.4 L (6.3-8.2) g/dL Albumin 2.3 L (3.5-5.0) g/dL 11/26/16 Range/Units 07:27 WBC (3.8-10.6) k/uL RBC (3.80-5.40) m/uL Hgb (11.4-16.0) gm/dL Hct (34.0-46.0) % Neutrophils # (1.3-7.7) k/uL PT (9.0-12.0) sec Sodium (137-145) mmol/L Potassium (3.5-5.1) mmol/L Chloride (98-107) mmol/L Carbon Dioxide (22-30) mmol/L BUN (7-17) mg/dL Creatinine (0.52-1.04) mg/dL Glucose (74-99) mg/dL POC Glucose (mg/dL) 137 H (75-99) mg/dL Calcium (8.4-10.2) mg/dL Phosphorus (2.5-4.5) mg/dL AST (14-36) U/L Total Protein (6.3-8.2) g/dL Albumin (3.5-5.0) g/dL Assessment and Plan Plan: 1. Acute blood loss anemia due to acute post op vaginal bleeding status post transfusion of 2 units packed red blood cell, iron studies, H&H every 6 hours, 3rd unit of packed RBCs to be given today. Lovenox and Coumadin discontinued. Consult appreciated with Dr. Suazo s/p vaginal packing with improvement of bleeding. Protamine and vitamin K was given. Based on her significant to pulmonary emboli's and a pelvic surgery, she would need DVT prophylaxis, Lovenox 30 mg daily will be started tomorrow and would probably cautiously start Coumadin patient patient for bridging( 7-10 days after hemoglobin stabilizes 2. Focal grade 2 noninvasive endometrioid carcinoma status post total abdominal hysterectomy and salpingo-oophorectomy last 11/19/2016. I discussed this with Dr. Suazo, speculum inspection of the vaginal area shows a small clot with intact incision, no active signs of bleeding after the clot was removed, homeostasis is appropriate, also pathology was reviewed with Dr. Suazo, oncology will be consulted during this admission. No chemotherapy or radiation therapy necessary. 3. MTHFR gene mutation with prior history of pulmonary embolusx2 , she is at risk for postoperative venous thromboembolism, start her on Lovenox 30 mg daily tomorrow. 4. Paroxysmal Atrial fibrillation history, currently on amiodarone tapering dose per her last admission 11/19/2016, cardiology is on consult last echocardiogram 11/22/2016 showed ejection fraction of 40-45% and mild MR and mild TR RV S/P less than 35, normal pericardium 5. Hypertension with hypotension. With this, near syncope related orthostasis with hemodynamic instability secondary to blood loss anemia along with the use of antihypertensive agents, no ongoing other losses except for postoperative anemia, hold lisinopril 20 mg twice daily, hold Cardizem CD 180 mg daily. Continue metoprolol 12.5 twice a day-hold. Fluid boluses given along with with blood transfusion 6. Diabetes mellitus type II. Metformin placed on hold due to acute kidney injury. 7. Asthma, mild intermittent. Continue albuterol inhaler as needed. 8. VTE prophylaxis. as above, risk for DVT Clarisse score of 9, await for normalizing INR, Lovenox to be started at 40 mg dailythereafter once INR is equal to or under 1.5 9. Gastrointestinal prophylaxis, Pepcid. 10. Proximal atrial fibrillation with episodes of A. fib with RVR. Cardiology consult. Oral amiodarone increased , metoprolol tartrate 12.5 mg twice daily- hold, Cardizem CD 180 mg--on hold due to hypotension 11. Acute kidney injury possibly due to hypotension. iv hydration. Consult nephrology. DDAVP x1. Metformin discontinued 12. Mild protein malnutrition, acute electrolyte abnormalities with hypocalcemia, hyperkalemia, I pointed 3 anemia. Elevated CPK Labs monitored monitor for rhabdo and further decompensation Discharge plan: Return home Impression and plan of care have been directed as dictated by the signing physician. Emma Lopes nurse practitioner acting as scribe for signing physician. Time with Patient: Greater than 30
[2016-11-26 12:51] LABS: Amorphous Sediment,Urine Occasional /hpf; Appearance,Urine Cloudy (Clear); Bilirubin,Urine 1+ (Negative); Calcium Oxalate Crystals,Urine Occasional /hpf; Glucose,Urine (UA) Negative (Negative); Ketones,Urine Negative (Negative); Leukocyte Esterase,Urine Trace (Negative); Nitrite,Urine Negative (Negative); Particle Count 11985; Protein,Urine Trace (Negative); RBC,Urine 3 /hpf (0-5); Specific Gravity,Urine 1.022 (1.001-1.035); Squamous Epithelial Cell,Urine 3 /hpf (0-4); UA Billing (MACRO vs. MICRO) MICRO; Urobilinogen,Urine <2.0 mg/dL (<2.0)
[2016-11-26 12:52] LABS: Glucose,Whole Blood 168 mg/dL (75-99)
--- NOTE | 2016-11-26 13:14 | CDI ---
In responding to this query, please exercise your independent professional judgment. The [facility] Coding Staff and Clinical Documentation Specialists appreciate your assistance in clarifying documentation, maintaining compliance with coding guidelines, accurately documenting patients condition and capturing severity of illness. The fact that a question is asked does not imply that any particular answer is desired or expected. Communication forms are a method of clarifying documentation and are not made part of the Legal Health Record. Thank you in advance for your clarification. Last Revision, September 2015 Cristi Shoemaker [address] [place] [address] Documentation Clarification Form Date: 11/26/2016 1:00:00 PM From: Tatyana Ace RN, CCDS Admit Date: 11/25/2016 1:49:00 PM Patient Name: Brie Frye Visit Number: [id number] Dr. Sasha Reed/ Emma Lopes CNP Patient history/risk factors: MTHFR Mutation, COLLINS w/ BSA 6 days [employer], Chronic Atrial Fib, , HX PE, Syncope and dizziness as chief complaint for this admission Clinical Indicators: 11/26 Cardiology Consult: "She is known to have paroxysmal atrial fibrillation and she had A. fib after the hysterectomy but currently she is in normal sinus mechanism. Hemodynamically, the patient is hypotensive and requiring a small dose of Levophed. 11/26 Nephrology Consult: "She was quite hypotensive and was noted to have a hemoglobin of 6.1 g/dL. Patient has been transfused 3 units packed RBC." 11/25 @ 1415 Vitals: Temp 97.7, HR 74, RR 18, B/P 80/ 42 and progressively dropping, spo2 99% ra Treatment: 4 units PRBC's transfused 3.5 L IVF Bolus followed by 100 CC/hr Levophed drip titrate for B/P In your professional opinion, can you please specify the type of shock if known ? Hypovolemic Shock o Cause Septic Shock o Suspected or known causative organism o Any associated organ failure Cardiogenic Shock o Cause Other, please specify Unable to determine Please document in your progress notes and discharge summary in order to capture severity of illness and risk of mortality. Include clinical findings that support your diagnosis. FYI: Press F11 to launch patient chart. Place X here if this finding has no clinical significance, is not applicable or if you are not able to provide any additional documentation. MTDD
--- NOTE | 2016-11-26 13:30 | CDI ---
In responding to this query, please exercise your independent professional judgment. The [facility] Coding Staff and Clinical Documentation Specialists appreciate your assistance in clarifying documentation, maintaining compliance with coding guidelines, accurately documenting patients condition and capturing severity of illness. The fact that a question is asked does not imply that any particular answer is desired or expected. Communication forms are a method of clarifying documentation and are not made part of the Legal Health Record. Thank you in advance for your clarification. Last Revision, September 2015 Cristi Shoemaker [address] [place] [address] Documentation Clarification Form Date: 11/26/2016 1:19:00 PM From: Tatyana Ace RN, CCDS Admit Date: 11/25/2016 1:49:00 PM Patient Name: Brie Frye Visit Number: [id number] Dr. Sravani Suazo Postoperative acute blood loss anemia is documented in the Attending Progress Notes and requires clarification from the surgeon whom preformed the procedure.. Patients Admitting Diagnosis: syncope with symptomatic anemia Post-Operative Diagnosis: complex endometrial hyperplasia without atypia Procedure performed: COLLINS BSO History/Risk Factors: MTHFR gene mutation, HX DVT/PE, chronic atrial fib, chronic anticoagulation Clinical Indicators: 11/25 OB: "increased vaginal bleeding for past 12 hrs." Treatment: Consults: Nephrology, Cardiology, OB In order to accurately reflect this patients severity of illness, please clarify if the post-operative acute blood loss anemia diagnosis is: An expected post-procedural or post-surgical condition Integral to the procedure Inherent to the procedure An unexpected post-procedural or post-surgical condition, related to the patient s underlying medical comorbidities Other, please specify Unable to determine Please document in your progress notes and discharge summary in order to capture severity of illness and risk of mortality. Include clinical findings that support your diagnosis. FYI: Press F11 to launch patient chart Place X here if this finding has no clinical significance, is not applicable or if you are not able to provide any additional documentation. NILO
[2016-11-26] MEDS ORDERED: LIDOCAINE 2% INJ 20 MG/ML SQ ONE (13:56)
--- NOTE | 2016-11-26 14:25 | XR ---
EXAMINATION TYPE: XR chest 1V confirm line [facility] DATE OF EXAM: 11/26/2016 2:17 PM HISTORY: picc. REFERENCE: Previous study dated 06/01/2012. FINDINGS: Lung volumes are prominent. Heart size is upper limits of normal. Pleural spaces are clear. Note is made of a left basilic PICC line in place. Its tip is in the superior vena cava. IMPRESSION: 1. COPD. 2. BORDERLINE CARDIOMEGALY. 3. NO POST PICC LINE INSERTION COMPLICATION.
[2016-11-26 14:34] LABS: Hemoglobin A1C 5.8 % (4.2-6.1)
--- NOTE | 2016-11-26 14:52 | IR ---
EXAMINATION TYPE: IR cvc insert >=5 years DATE OF EXAM: 11/26/2016 2:30 PM COMPARISON: NONE HISTORY: Anemia, needs long-term intravenous access for therapy FINDINGS: Maximal barrier technique was utilized. The skin overlying the upper extremity vein was lo calized with ultrasound and noted to be compressible and patent by ultrasound. An ultrasound image w as obtained and submitted on patient's chart. Sterile technique utilized with the ultrasound machine. The skin overlying was prepped and draped and Lidocaine used for local anesthesia. A skin rickey was made with a scalpel. Access was gained to the vein under direct ultrasound guidance with a 21-gauge needle and a 0.018 inch wire was advanced. Access site was dilated with a peel-away sheath and the c atheter tailored to length. Catheter advanced centrally and a post procedure chest x-ray verified pl acement in the superior vena cava. Catheter was fixed to the skin with suture and a sterile dressing placed. Hemostasis achieved and the catheter was aspirated and flushed with sterile saline. The pa tient remained in stable condition. IMPRESSION: STATUS POST ULTRASOUND GUIDED PICC LINE PLACEMENT, READY FOR USE. THIS PROCEDURE WAS PER FORMED BY THE UNDERSIGNED.
--- NOTE | 2016-11-26 15:19 | P.CNPUL ---
History of Present Illness Consult date: 11/26/16 Requesting physician: Sasha Reed Reason for consult: other (ICU management, patient presented with vaginal bleeding, recent hysterectomy about a week ago.) Chief complaint: Vaginal bleeding History of present illness: This is a 66-year-old female with history of hypercoagulable state, history of pulmonary embolism 2, her last thromboembolic episode was 4 years ago. History of chronic atrial fibrillation, type 2 diabetes, hypertension, and MT HFR gene mutation. Patient presented about a week ago and she underwent vaginal hysterectomy which converted to total abdominal hysterectomy and bilateral salpingo oophorectomy for complex endometrial hyperplasia and atypia her surgery went quite well, however she developed postoperative atrial fibrillation and this was managed by cardiology on selective. Patient was eventually placed on amiodarone, and she was discharged home about 2 days ago. Patient went back on Lovenox 120 mg twice a day as well as Coumadin orally. However on 11/25/2016, patient presented to the ER with increased vaginal bleeding for about 12 hours with passage of blood clots. She had a syncopal episode at home, but did not fall. Her hemoglobin was as low as 6.1, and her platelets were 2 91,000. Her INR yesterday was 1.9, and today is 1.3. Patient also developed worsening renal failure, creatinine on admission was 2.82 and it is 3.40 today. I believe the patient must have sustained acute tubular necrosis secondary to hypotension secondary to profound anemia. Ultrasound of the kidneys is pending, and renal consultation is also pending. No evidence of hydronephrosis was noted on the ultrasound. Considering her presentation of profound anemia and bleeding, considering her history of thromboembolic disease and hypercoagulable state, I was asked to see this patient on consultation. Presently there is no clinical history to suggest thromboembolic disease, but of course the patient is relatively high risk for thromboembolic disease. At this point I recommended we stop all anticoagulation therapy, until the bleeding is fully controlled, and hopefully in the next 5-7 days, she could be restarted back on relatively low dose of Lovenox. Holding anticoagulation therapy is very appropriate, and the benefits at this point outweigh the risks. Patient was made aware of this decision, and if she develops any thromboembolic disease, patient will need to have a Sami filter placement. Review of Systems 14 point review of systems were obtained, please refer to pertinent positives and negatives noted in the HPI. Past Medical History Past Medical History: Asthma, Diabetes Mellitus, Hypertension, Pulmonary Embolus (PE) Additional Past Medical History / Comment(s): MTHFR gene mutation History of Any Multi-Drug Resistant Organisms: None Reported Past Surgical History: Breast Surgery, Section, Hysterectomy, Orthopedic Surgery Additional Past Surgical History / Comment(s): RIGHT ANKLE-PINS AND PLATE breast biopsy Past Anesthesia/Blood Transfusion Reactions: No Reported Reaction Additional Past Anesthesia/Blood Transfusion Reaction / Comment(s): no hx blood transfusion Past Psychological History: No Psychological Hx Reported Smoking Status: Never smoker Past Alcohol Use History: Rare Additional Past Alcohol Use History / Comment(s): Patient denies any history of smoking, medical marijuana, marijuana, street drug or alcohol use. 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 Past Drug Use History: None Reported - Past Family History Mother Family Medical History: No Reported History Additional Family Medical History / Comment(s): Mother at age 88 from sepsis. Brother(s) Family Medical History: Myocardial Infarction (MA) Additional Family Medical History / Comment(s): Brother at age 49 from myocardial infarction. Father Additional Family Medical History / Comment(s): Father at age 57 from a myocardial infarction. Sister(s) Additional Family Medical History / Comment(s): He has one sister alive but has never been tested for MTHFR gene mutation. Son(s) Additional Family Medical History / Comment(s): She has 2 sons and 1 daughter with no major medical problems. Medications and Allergies Home Medications Medication Instructions Recorded Confirmed Type Lrzlghszkuuovh-XP-Llbshkdpto 1 tab PO HS 09/10/16 11/25/16 History [Folbic] Diltiazem Cd [Cardizem CD] 180 mg PO QAM 09/10/16 11/25/16 History Metoprolol Tartrate [Lopressor] 12.5 mg PO BID 09/10/16 11/25/16 History Warfarin [Coumadin] 2.5 mg PO SUTUTHSA 09/10/16 11/25/16 History Warfarin [Coumadin] 5 mg PO MOWEFR 09/10/16 11/25/16 History metFORMIN HCL [Glucophage] 500 mg PO BID 09/10/16 11/25/16 History Albuterol Inhaler [Ventolin Hfa 1 - 2 puff INHALATION RT-Q6H PRN 09/11/16 History Inhaler] ALPRAZolam [Xanax] 0.25 mg PO TID PRN 09/13/16 11/25/16 History Enoxaparin [Lovenox] 120 mg SQ Q12H MDD FINAL DOSE 11/14/16 11/25/16 History 11/25/2016 Allergies Allergy/AdvReac Type Severity Reaction Status Date / Time No Known Allergies Allergy Verified 11/25/16 12:49 Physical Exam Vitals: Vital Signs Temp Pulse Pulse Pulse Resp BP BP 11/26/16 13:04 98.2 F 95 14 102/52 11/26/16 13:00 86 16 104/49 11/26/16 12:45 91 12 83/51 11/26/16 12:34 98.1 F 90 16 104/49 11/26/16 12:30 90 14 118/36 11/26/16 12:24 98.4 F 90 16 83/51 11/26/16 12:15 97 15 107/56 11/26/16 12:00 98 F 92 9 L 74/53 11/26/16 11:45 83 8 L 124/59 11/26/16 11:30 80 9 L 124/59 11/26/16 11:15 85 9 L 103/44 11/26/16 11:00 78 12 81/62 11/26/16 10:45 80 5 L 102/58 11/26/16 10:30 88 23 100/50 11/26/16 10:15 81 5 L 102/41 11/26/16 10:00 82 15 96/49 11/26/16 09:45 74 13 104/51 11/26/16 09:30 79 12 119/43 11/26/16 09:15 74 15 111/52 11/26/16 09:00 77 12 11/26/16 08:45 80 20 87/47 11/26/16 08:30 72 17 99/49 11/26/16 08:15 71 16 94/51 11/26/16 08:00 98.4 F 78 15 107/34 11/26/16 07:00 85 16 100/58 11/26/16 06:00 68 15 94/44 11/26/16 05:00 67 13 101/66 11/26/16 04:00 98.1 F 70 17 90/51 11/26/16 03:00 72 13 87/54 11/26/16 02:30 76 16 92/46 11/26/16 02:00 71 20 92/54 11/26/16 01:30 67 19 98/47 11/26/16 01:00 88 24 74/45 11/26/16 00:30 70 14 87/51 11/26/16 00:00 98.7 F 73 16 67/43 11/25/16 23:30 76 15 63/45 11/25/16 23:06 80 18 79/41 11/25/16 22:57 79 18 87/45 11/25/16 22:53 80 18 85/45 11/25/16 22:48 80 18 73/35 11/25/16 22:46 78 18 71/41 11/25/16 22:44 78 18 72/37 11/25/16 22:42 81 18 72/37 11/25/16 22:41 81 18 67/31 11/25/16 22:30 98.6 F 91 16 118/36 11/25/16 21:21 97.8 F 75 18 94/43 11/25/16 20:51 98.4 F 77 18 84/46 11/25/16 20:41 97.5 F L 78 18 86/48 11/25/16 20:40 97.5 F L 79 18 87/43 11/25/16 20:34 11/25/16 20:00 97.8 F 78 18 88/45 11/25/16 18:55 97.7 F 72 16 76/39 11/25/16 18:25 97.5 F L 66 16 76/42 11/25/16 18:15 97.7 F 70 16 87/39 11/25/16 16:26 97.1 F L 99 18 163/119 11/25/16 16:10 98.2 F 89 16 98/37 11/25/16 15:44 97 F L 61 20 99/48 11/25/16 15:15 63 18 77/40 Pulse Ox 11/26/16 13:04 11/26/16 13:00 92 L 11/26/16 12:45 98 11/26/16 12:34 11/26/16 12:30 97 11/26/16 12:24 11/26/16 12:15 97 11/26/16 12:00 100 11/26/16 11:45 97 11/26/16 11:30 98 11/26/16 11:15 97 11/26/16 11:00 96 11/26/16 10:45 97 11/26/16 10:30 98 11/26/16 10:15 99 11/26/16 10:00 95 11/26/16 09:45 100 11/26/16 09:30 100 11/26/16 09:15 100 11/26/16 09:00 100 11/26/16 08:45 99 11/26/16 08:30 99 11/26/16 08:15 95 11/26/16 08:00 99 11/26/16 07:00 100 11/26/16 06:00 97 11/26/16 05:00 100 11/26/16 04:00 98 11/26/16 03:00 100 11/26/16 02:30 100 11/26/16 02:00 100 11/26/16 01:30 100 11/26/16 01:00 100 11/26/16 00:30 100 11/26/16 00:00 98 11/25/16 23:30 98 11/25/16 23:06 11/25/16 22:57 11/25/16 22:53 11/25/16 22:48 11/25/16 22:46 11/25/16 22:44 98 11/25/16 22:42 99 11/25/16 22:41 100 11/25/16 22:30 11/25/16 21:21 100 11/25/16 20:51 100 11/25/16 20:41 100 11/25/16 20:40 100 11/25/16 20:34 100 11/25/16 20:00 100 11/25/16 18:55 11/25/16 18:25 100 11/25/16 18:15 100 11/25/16 16:26 100 11/25/16 16:10 100 11/25/16 15:44 11/25/16 15:15 Intake and Output 11/26/16 11/26/16 11/26/16 06:59 14:59 22:59 Intake Total 6816.786 7993.5 Output Total 182 512 Balance 1360.937 787.5 Intake: Intake, IV Titration 7523.383 7827.5 Amount Desmopressin Inj 40 mcg 50 In Sodium Chloride 0.9% 50 ml @ 200 mls/hr IVPB ONCE ONE Rx#:[id number] Norepinephrin 4 mg-0.9% 192.937 199.5 Ns Pmx 4 mg In 250 ml @ Titrate IV .Q0M PAULINO Rx#: [id number] Sodium Chloride 0.9% 1, 800 000 ml @ 100 mls/hr IV . Q10H PAULINO Rx#:[id number] Sodium Chloride 0.9% 1, 350 100 000 ml @ 150 mls/hr IV . Q6H40M PAULINO Rx#:[id number] Sodium Chloride 0.9% 1, 1000 000 ml @ 999 mls/hr IV . Q1H1M ONE Rx#:[id number] Water For Injection, 150 Sterile 1,000 ml @ 50 mls /hr IV .[id number] PAULINO with Sodium Acetate 150 meq Rx #:[id number] Blood Product 0 Rc As-1 Unit 0 [id number] Output: Urine 182 512 Other: Voiding Method Indwelling Catheter # Voids 1 Weight 136.1 kg 136.1 kg Patient Weight 11/27/16 06:59 Weight 136.1 kg Physical Exam: Revealed a 66-year-old female in no distress. HEENT:[Neck is supple.] [No neck masses.] [No thyromegaly.] [No JVD.] Chest: [Clear throughout, no crackles, no rhonchi, no wheezes.] Cardiac Exam: [Normal S1 and S2, no S3 gallop, no murmur.] Abdomen: [Soft, nontender, no megaly, no rebound, no guarding, normal bowel sounds.] Extremities: [No clubbing, no edema, no cyanosis.] Neurological Exam: [No focal neurologic deficit.] Results Chest x-ray showed no evidence of active disease. There is COPD and borderline cardiomegaly. - Laboratory Findings CBC and BMP: 11/26/16 09:53 11/26/16 04:52 PT/INR, D-dimer PT 13.5 sec (9.0-12.0) H 11/26/16 05:48 INR 1.4 (<1.1) 11/26/16 05:48 Abnormal lab findings: Abnormal Labs 11/25/16 11/25/16 11/25/16 14:41 16:32 17:04 WBC 12.2 H RBC 2.36 L Hgb 7.1 L Hct 22.3 L Neutrophils # PT Sodium Potassium Chloride Carbon Dioxide BUN Creatinine Glucose POC Glucose (mg/dL) 125 H 110 H Calcium Phosphorus AST Total Protein Albumin Urine Appearance Urine Protein Urine Blood Urine Bilirubin Ur Leukocyte Esterase Calcium Oxalate Crystal Amorphous Sediment 11/25/16 11/25/16 11/26/16 22:55 23:58 00:45 WBC 13.7 H RBC 2.55 L Hgb 7.6 L Hct 23.4 L Neutrophils # PT 13.0 H Sodium Potassium Chloride Carbon Dioxide BUN Creatinine Glucose POC Glucose (mg/dL) 118 H Calcium Phosphorus AST Total Protein Albumin Urine Appearance Urine Protein Urine Blood Urine Bilirubin Ur Leukocyte Esterase Calcium Oxalate Crystal Amorphous Sediment 11/26/16 11/26/16 11/26/16 00:45 04:52 04:52 WBC 19.7 H RBC 2.62 L Hgb 7.7 L Hct 23.5 L Neutrophils # 14.6 H PT Sodium 133 L Potassium 5.3 H Chloride 111 H Carbon Dioxide 13 L BUN 47 H Creatinine 3.40 H Glucose 126 H POC Glucose (mg/dL) Calcium 7.5 L Phosphorus 5.0 H AST 42 H Total Protein 4.4 L Albumin 2.3 L Urine Appearance Cloudy H Urine Protein Trace H Urine Blood Moderate H Urine Bilirubin 1+ H Ur Leukocyte Esterase Trace H Calcium Oxalate Crystal Occasional H Amorphous Sediment Occasional H 11/26/16 11/26/16 11/26/16 05:48 07:27 09:53 WBC 19.8 H RBC 2.31 L Hgb 6.9 L* Hct 20.8 L Neutrophils # PT 13.5 H Sodium Potassium Chloride Carbon Dioxide BUN Creatinine Glucose POC Glucose (mg/dL) 137 H Calcium Phosphorus AST Total Protein Albumin Urine Appearance Urine Protein Urine Blood Urine Bilirubin Ur Leukocyte Esterase Calcium Oxalate Crystal Amorphous Sediment 11/26/16 12:50 WBC RBC Hgb Hct Neutrophils # PT Sodium Potassium Chloride Carbon Dioxide BUN Creatinine Glucose POC Glucose (mg/dL) 168 H Calcium Phosphorus AST Total Protein Albumin Urine Appearance Urine Protein Urine Blood Urine Bilirubin Ur Leukocyte Esterase Calcium Oxalate Crystal Amorphous Sediment - Diagnostic Findings Chest x-ray: image reviewed (Chest x-ray as noted above.) Assessment and Plan Plan: Impression: 1 acute vaginal bleeding with profound anemia secondary to recent hysterectomy, and worsened by the fact that the patient is on anticoagulation therapy. Patient presented with a hemoglobin as low as 6.1, and so far she has required at least 4 units of packed RBCs since admission. Her hemoglobin remains marginal. 2 focal grade 2 noninvasive endometrial carcinoma, status post total abdominal hysterectomy on 11/19/2016. 3 history of thromboembolic disease and hypercoagulable state, however her last thromboembolic episode was 4 years ago, and I took care of the patient at that time. Patient is definitely at a higher risk of being on anticoagulation therapy at this point, and I feel it would be best to hold all anticoagulation therapy until her vaginal bleeding is completely under control, and hopefully in the next few days we can restart the patient on Lovenox. At this point I believe the risks of anticoagulation therapy outweigh the benefits. 4 history of multiple comorbidities including hypertension, diabetes, mild intermittent asthma, and paroxysmal atrial fibrillation. 5 acute kidney injury, most likely acute tubular necrosis secondary to hypotension., Ultrasound showed no evidence of hydronephrosis, hence ureteral injury is unlikely, patient will likely improve with hydration and with blood products. Recommendation: Discussed the patient's condition with the multiple consultants and physicians on the case including Dr. Suazo and Dr. Reed. Patient will remain in the ICU for now, and we'll continue to follow closely. We'll continue to monitor her serial hemoglobin and hematocrit, will transfuse if hemoglobin is below 7, and again the main emphasis at this point is to continue holding anticoagulation therapy.His is guarded. Time with Patient: Greater than 30
[2016-11-26 16:49] LABS: Glucose,Whole Blood 185 mg/dL (75-99)
[2016-11-26 17:35] LABS: Basophils % (A) 0 %; CH 29.4; CHCM 32.1; Eosinophils # (A) 0.1 k/uL (0-0.7); Eosinophils % (A) 0 %; HCT 21.3 % (34.0-46.0); HDW 3.17; Hypochromasia Slight; Luc # (Auto) 0.09; Luc % (Auto) 1; Lymphocytes # (A) 1.8 k/uL (1.0-4.8); Lymphocytes % (A) 13 %; MCH 29.6 pg (25.0-35.0); MCV 92.7 fL (80.0-100.0); Mean Platelet Volume 7.3; Monocytes # (A) 0.5 k/uL (0-1.0); Monocytes % (A) 4 %; Neutrophils # (A) 11.4 k/uL (1.3-7.7); Neutrophils % (A) 82 %; RDW 15.7 % (11.5-15.5); WBC 13.9 k/uL (3.8-10.6); WBC (Perox) 14.38
[2016-11-26 17:37] LABS: HGB 6.8 gm/dL (11.4-16.0)
[2016-11-26 17:44] LABS: Calcium 6.9 mg/dL (8.4-10.2); Magnesium 1.8 mg/dL (1.6-2.3); Potassium 5.1 mmol/L (3.5-5.1)
[2016-11-26] MEDS ORDERED: NOREPINEPHRIN 16 MG-0.9%NS PMX 16 MG/250 ML ML IV SCH (17:45)
[2016-11-26] MEDS: DOCUSATE 100 MG CAP PO SCH (19:13)
[2016-11-26 21:53] LABS: Glucose,Whole Blood 145 mg/dL (75-99)
[2016-11-26] MEDS: CYANOCOBALAMIN-FA-PYRIDOXINE 1 EACH TAB PO SCH (23:52)
[2016-11-27] MEDS: MAGNESIUM SULFATE-D5W PMX 1 GM in DEXTROSE/WATER 1 100ML.BAG IVPB SCH (00:39)
[2016-11-27 05:50] LABS: Basophils % (A) 0 %; CH 29.5; CHCM 32.6; Eosinophils # (A) 0.1 k/uL (0-0.7); Eosinophils % (A) 1 %; HCT 22.5 % (34.0-46.0); HDW 3.07; HGB 7.1 gm/dL (11.4-16.0); Luc # (Auto) 0.16; Luc % (Auto) 1; Lymphocytes # (A) 2.3 k/uL (1.0-4.8); Lymphocytes % (A) 18 %; MCHC 31.8 g/dL (31.0-37.0); MCV 91.2 fL (80.0-100.0); Mean Platelet Volume 6.7; Monocytes # (A) 0.8 k/uL (0-1.0); Monocytes % (A) 6 %; Neutrophils # (A) 9.6 k/uL (1.3-7.7); Neutrophils % (A) 74 %; RBC 2.46 m/uL (3.80-5.40); RDW 15.6 % (11.5-15.5); WBC (Perox) 13.22
[2016-11-27 05:54] LABS: INR 1.2 (<1.1); Prothrombin Time 11.7 sec (9.0-12.0)
[2016-11-27 06:00] LABS: Calcium 7.4 mg/dL (8.4-10.2); Magnesium 2.3 mg/dL (1.6-2.3); Phosphorous 2.3 mg/dL (2.5-4.5); Potassium 4.5 mmol/L (3.5-5.1)
--- NOTE | 2016-11-27 07:32 | P.PN ---
Subjective Principal diagnosis: Postoperative day #7, vaginal bleeding on anticoagulation, anemia, atrial fibrillation. Scant vaginal drainage. Patient feels stronger. Positive small bowel movement. No complaint of pain. Objective - Vital Signs Vital signs: Vital Signs Temp 98.7 F 11/27/16 00:00 Pulse 74 11/27/16 06:00 Resp 17 11/27/16 06:00 BP 116/52 11/27/16 06:00 Pulse Ox 99 11/27/16 06:00 Intake & Output 11/26/16 11/27/16 11/27/16 18:59 06:59 18:59 Intake Total 2609.5 1800 Output Total 902 1350 Balance 1707.5 450 Weight 136.1 kg 137.5 kg Intake: Intake, IV Titration 2299.5 1800 Amount Desmopressin Inj 40 mcg 50 In Sodium Chloride 0.9% 50 ml @ 200 mls/hr IVPB ONCE ONE Rx#:[id number] Norepinephrin 4 mg-0.9% 449.5 Ns Pmx 4 mg In 250 ml @ Titrate IV .Q0M PAULINO Rx#: [id number] Sodium Chloride 0.9% 1, 1300 1200 000 ml @ 100 mls/hr IV . Q10H PAULINO Rx#:[id number] Sodium Chloride 0.9% 1, 100 000 ml @ 150 mls/hr IV . Q6H40M PAULINO Rx#:[id number] Water For Injection, 400 600 Sterile 1,000 ml @ 50 mls /hr IV .[id number] PAULINO with Sodium Acetate 150 meq Rx #:[id number] Blood Product 310 0 Rc As-1 Unit 310 [id number] Rc As-1 Unit 0 [id number] Output: Urine 902 1350 Other: Voiding Method Indwelling Catheter Indwelling Catheter # Voids 1 - Constitutional General appearance: Present: cooperative, morbidly obese - EENT Eyes: Present: PERRLA ENT: Present: hearing grossly normal - Neck Neck: Present: normal ROM Thyroid: bilateral: normal size - Respiratory Respiratory: bilateral: CTA - Cardiovascular Rhythm: regular - Gastrointestinal General gastrointestinal: Present: normal bowel sounds - Genitourinary Genitourinary Comment(s): Vaginal packing removed. No active vaginal bleeding. - Neurologic Neurologic: Present: CNII-XII intact - Musculoskeletal Musculoskeletal: Present: strength equal bilaterally - Psychiatric Psychiatric: Present: A&O x's 3, appropriate affect, intact judgment & insight - Labs CBC & Chem 7: 11/27/16 05:40 11/27/16 05:40 Labs: Abnormal Lab Results - Last 24 Hours (Table) 11/26/16 11/26/16 11/26/16 Range/Units 00:45 07:27 09:53 WBC 19.8 H (3.8-10.6) k/uL RBC 2.31 L (3.80-5.40) m/uL Hgb 6.9 L* (11.4-16.0) gm/dL Hct 20.8 L (34.0-46.0) % RDW (11.5-15.5) % Neutrophils # (1.3-7.7) k/uL Sodium (137-145) mmol/L Chloride (98-107) mmol/L Carbon Dioxide (22-30) mmol/L BUN (7-17) mg/dL Creatinine (0.52-1.04) mg/dL Glucose (74-99) mg/dL POC Glucose (mg/dL) 137 H (75-99) mg/dL Calcium (8.4-10.2) mg/dL Phosphorus (2.5-4.5) mg/dL Urine Appearance Cloudy H (Clear) Urine Protein Trace H (Negative) Urine Blood Moderate H (Negative) Urine Bilirubin 1+ H (Negative) Ur Leukocyte Esterase Trace H (Negative) Calcium Oxalate Crystal Occasional H (None) /hpf Amorphous Sediment Occasional H (None) /hpf 11/26/16 11/26/16 11/26/16 Range/Units 12:50 16:47 17:25 WBC (3.8-10.6) k/uL RBC (3.80-5.40) m/uL Hgb (11.4-16.0) gm/dL Hct (34.0-46.0) % RDW (11.5-15.5) % Neutrophils # (1.3-7.7) k/uL Sodium 134 L (137-145) mmol/L Chloride 110 H (98-107) mmol/L Carbon Dioxide 16 L (22-30) mmol/L BUN 39 H (7-17) mg/dL Creatinine 2.50 H (0.52-1.04) mg/dL Glucose 152 H (74-99) mg/dL POC Glucose (mg/dL) 168 H 185 H (75-99) mg/dL Calcium 6.9 L (8.4-10.2) mg/dL Phosphorus (2.5-4.5) mg/dL Urine Appearance (Clear) Urine Protein (Negative) Urine Blood (Negative) Urine Bilirubin (Negative) Ur Leukocyte Esterase (Negative) Calcium Oxalate Crystal (None) /hpf Amorphous Sediment (None) /hpf 11/26/16 11/26/16 11/27/16 Range/Units 17:25 21:51 05:40 WBC 13.9 H 13.0 H (3.8-10.6) k/uL RBC 2.30 L 2.46 L (3.80-5.40) m/uL Hgb 6.8 L* 7.1 L (11.4-16.0) gm/dL Hct 21.3 L 22.5 L (34.0-46.0) % RDW 15.7 H 15.6 H (11.5-15.5) % Neutrophils # 11.4 H 9.6 H (1.3-7.7) k/uL Sodium (137-145) mmol/L Chloride (98-107) mmol/L Carbon Dioxide (22-30) mmol/L BUN (7-17) mg/dL Creatinine (0.52-1.04) mg/dL Glucose (74-99) mg/dL POC Glucose (mg/dL) 145 H (75-99) mg/dL Calcium (8.4-10.2) mg/dL Phosphorus (2.5-4.5) mg/dL Urine Appearance (Clear) Urine Protein (Negative) Urine Blood (Negative) Urine Bilirubin (Negative) Ur Leukocyte Esterase (Negative) Calcium Oxalate Crystal (None) /hpf Amorphous Sediment (None) /hpf 11/27/16 Range/Units 05:40 WBC (3.8-10.6) k/uL RBC (3.80-5.40) m/uL Hgb (11.4-16.0) gm/dL Hct (34.0-46.0) % RDW (11.5-15.5) % Neutrophils # (1.3-7.7) k/uL Sodium 133 L (137-145) mmol/L Chloride 109 H (98-107) mmol/L Carbon Dioxide 21 L (22-30) mmol/L BUN 33 H (7-17) mg/dL Creatinine 1.80 H (0.52-1.04) mg/dL Glucose 130 H (74-99) mg/dL POC Glucose (mg/dL) (75-99) mg/dL Calcium 7.4 L (8.4-10.2) mg/dL Phosphorus 2.3 L (2.5-4.5) mg/dL Urine Appearance (Clear) Urine Protein (Negative) Urine Blood (Negative) Urine Bilirubin (Negative) Ur Leukocyte Esterase (Negative) Calcium Oxalate Crystal (None) /hpf Amorphous Sediment (None) /hpf Microbiology - Last 24 Hours (Table) 11/26/16 00:45 Urine Culture - Preliminary Urine,Catheterized Assessment and Plan Plan: Continue medical management. Consideration for arterial line, plan per Dr. Scherer. Appreciate close medical management. Time with Patient: Greater than 30
[2016-11-27 07:33] LABS: Glucose,Whole Blood 149 mg/dL (75-99)
[2016-11-27] MEDS: PANTOPRAZOLE 40 MG TABLET PO SCH (08:08)
[2016-11-27] MEDS: INSULIN LISPRO (humaLOG) 300 UNIT/3 ML VIAL SQ SCH ×4 (08:08→20:12)
[2016-11-27] MEDS: SODIUM CHLORIDE 0.9% 1,000 ML IV SCH ×2 (08:08→16:38)
[2016-11-27] MEDS: METOPROLOL TARTRATE 12.5 MG TAB PO SCH ×2 (08:09→20:04)
[2016-11-27] MEDS: DOCUSATE 100 MG CAP PO SCH ×2 (08:09→20:12)
[2016-11-27] MEDS: AMIODARONE 200 MG TAB PO SCH ×2 (08:09→20:05)
[2016-11-27] MEDS: IPRATROPIUM-ALBUTEROL 3 ML NEB INHALATION SCH ×4 (09:04→20:22)
--- NOTE | 2016-11-27 09:12 | P.PN ---
Subjective Principal diagnosis: Paroxysmal A. fib This is a pleasant 66-year-old female patient who just underwent hysterectomy about a week ago presented back to the hospital complaining of dizziness and lightheadedness. The patient is known to have hypercoagulopathy and she was taking Coumadin as an outpatient. She just underwent hysterectomy about a week ago. She was discharged home on Coumadin and Lovenox for bridging. Over the last 2 days she has been experiencing vagina bleeding. She started feeling dizzy and lightheaded and she came in to the emergency room where she was found to be severely anemic. She received 3 units of packed RBC. The Coumadin and Lovenox were stopped. She denies having any chest pain or discomfort or difficulty breathing or heart racing or fluttering. She is known to have paroxysmal atrial fibrillation and she had A. fib after the hysterectomy but currently she is in normal sinus mechanism. Hemodynamically, the patient is hypotensive and requiring a small dose of Levophed. On follow-up with the patient today, clinically she is doing good. She still requires small dose of vasopressor was Levophed. Yesterday I increase the dose of amiodarone to 400 mg by mouth twice a day and was still holding the metoprolol in view of the hypotension. She is off any kind of anticoagulation. The hemoglobin is 7.1 and I am going to give the patient one unit of packed RBC just because of her hemodynamic instability. Objective - Vital Signs Vital signs: Vital Signs Temp 97.7 F 11/27/16 08:00 Pulse 95 11/27/16 09:00 Resp 17 11/27/16 09:00 BP 107/85 11/27/16 09:00 Pulse Ox 98 11/27/16 09:00 Intake & Output 11/26/16 11/27/16 11/27/16 18:59 06:59 18:59 Intake Total 2609.5 2110 300 Output Total 902 1350 210 Balance 1707.5 760 90 Weight 136.1 kg 137.5 kg 137.5 kg Intake: Intake, IV Titration 2299.5 1800 300 Amount Desmopressin Inj 40 mcg 50 In Sodium Chloride 0.9% 50 ml @ 200 mls/hr IVPB ONCE ONE Rx#:[id number] Norepinephrin 4 mg-0.9% 449.5 Ns Pmx 4 mg In 250 ml @ Titrate IV .Q0M PAULINO Rx#: [id number] Sodium Chloride 0.9% 1, 1300 1200 200 000 ml @ 100 mls/hr IV . Q10H PAULINO Rx#:[id number] Sodium Chloride 0.9% 1, 100 000 ml @ 150 mls/hr IV . Q6H40M PAULINO Rx#:[id number] Water For Injection, 400 600 100 Sterile 1,000 ml @ 50 mls /hr IV .[id number] PAULINO with Sodium Acetate 150 meq Rx #:[id number] Blood Product 310 310 Rc As-1 Unit 310 [id number] Rc As-1 Unit 310 [id number] Output: Urine 902 1350 210 Other: Voiding Method Indwelling Catheter Indwelling Catheter Indwelling Catheter # Voids 1 - Constitutional General appearance: Present: no acute distress - Cardiovascular Rhythm: regular - Labs CBC & Chem 7: 11/27/16 05:40 11/27/16 05:40 Labs: Abnormal Lab Results - Last 24 Hours (Table) 11/26/16 11/26/16 11/26/16 Range/Units 00:45 09:53 12:50 WBC 19.8 H (3.8-10.6) k/uL RBC 2.31 L (3.80-5.40) m/uL Hgb 6.9 L* (11.4-16.0) gm/dL Hct 20.8 L (34.0-46.0) % RDW (11.5-15.5) % Neutrophils # (1.3-7.7) k/uL Sodium (137-145) mmol/L Chloride (98-107) mmol/L Carbon Dioxide (22-30) mmol/L BUN (7-17) mg/dL Creatinine (0.52-1.04) mg/dL Glucose (74-99) mg/dL POC Glucose (mg/dL) 168 H (75-99) mg/dL Calcium (8.4-10.2) mg/dL Phosphorus (2.5-4.5) mg/dL Urine Appearance Cloudy H (Clear) Urine Protein Trace H (Negative) Urine Blood Moderate H (Negative) Urine Bilirubin 1+ H (Negative) Ur Leukocyte Esterase Trace H (Negative) Calcium Oxalate Crystal Occasional H (None) /hpf Amorphous Sediment Occasional H (None) /hpf 11/26/16 11/26/16 11/26/16 Range/Units 16:47 17:25 17:25 WBC 13.9 H (3.8-10.6) k/uL RBC 2.30 L (3.80-5.40) m/uL Hgb 6.8 L* (11.4-16.0) gm/dL Hct 21.3 L (34.0-46.0) % RDW 15.7 H (11.5-15.5) % Neutrophils # 11.4 H (1.3-7.7) k/uL Sodium 134 L (137-145) mmol/L Chloride 110 H (98-107) mmol/L Carbon Dioxide 16 L (22-30) mmol/L BUN 39 H (7-17) mg/dL Creatinine 2.50 H (0.52-1.04) mg/dL Glucose 152 H (74-99) mg/dL POC Glucose (mg/dL) 185 H (75-99) mg/dL Calcium 6.9 L (8.4-10.2) mg/dL Phosphorus (2.5-4.5) mg/dL Urine Appearance (Clear) Urine Protein (Negative) Urine Blood (Negative) Urine Bilirubin (Negative) Ur Leukocyte Esterase (Negative) Calcium Oxalate Crystal (None) /hpf Amorphous Sediment (None) /hpf 11/26/16 11/27/16 11/27/16 Range/Units 21:51 05:40 05:40 WBC 13.0 H (3.8-10.6) k/uL RBC 2.46 L (3.80-5.40) m/uL Hgb 7.1 L (11.4-16.0) gm/dL Hct 22.5 L (34.0-46.0) % RDW 15.6 H (11.5-15.5) % Neutrophils # 9.6 H (1.3-7.7) k/uL Sodium 133 L (137-145) mmol/L Chloride 109 H (98-107) mmol/L Carbon Dioxide 21 L (22-30) mmol/L BUN 33 H (7-17) mg/dL Creatinine 1.80 H (0.52-1.04) mg/dL Glucose 130 H (74-99) mg/dL POC Glucose (mg/dL) 145 H (75-99) mg/dL Calcium 7.4 L (8.4-10.2) mg/dL Phosphorus 2.3 L (2.5-4.5) mg/dL Urine Appearance (Clear) Urine Protein (Negative) Urine Blood (Negative) Urine Bilirubin (Negative) Ur Leukocyte Esterase (Negative) Calcium Oxalate Crystal (None) /hpf Amorphous Sediment (None) /hpf 11/27/16 Range/Units 07:31 WBC (3.8-10.6) k/uL RBC (3.80-5.40) m/uL Hgb (11.4-16.0) gm/dL Hct (34.0-46.0) % RDW (11.5-15.5) % Neutrophils # (1.3-7.7) k/uL Sodium (137-145) mmol/L Chloride (98-107) mmol/L Carbon Dioxide (22-30) mmol/L BUN (7-17) mg/dL Creatinine (0.52-1.04) mg/dL Glucose (74-99) mg/dL POC Glucose (mg/dL) 149 H (75-99) mg/dL Calcium (8.4-10.2) mg/dL Phosphorus (2.5-4.5) mg/dL Urine Appearance (Clear) Urine Protein (Negative) Urine Blood (Negative) Urine Bilirubin (Negative) Ur Leukocyte Esterase (Negative) Calcium Oxalate Crystal (None) /hpf Amorphous Sediment (None) /hpf Microbiology - Last 24 Hours (Table) 11/26/16 00:45 Urine Culture - Preliminary Urine,Catheterized Assessment and Plan Plan: Assessment Vagina bleeding Anemia secondary to the above Acute on chronic renal failure Paroxysmal atrial fibrillation Multiple comorbid conditions Plan Monitor the hemoglobin and I am transferring 20 units of blood Continue holding anticoagulation The patient has been maintaining normal sinus mechanism Continue the current dose of amiodarone Continue holding metoprolol Follow-up with the patient
[2016-11-27] MEDS: WATER FOR INJECTION, STERILE 1,000 ML with SODIUM ACETATE 150 MEQ IV SCH ×2 (09:49)
--- NOTE | 2016-11-27 11:13 | PN ---
Patient is seen for followup for acute kidney injury. She was admitted to the hospital with severe hypotension, severe anemia. She had bleeding after the hysterectomy. The bleeding seems to have stopped. Patient was also acidotic and was started on sodium acetate. Her acidosis has improved. She continues to have good urine output and her renal function has improved as well with creatinine down to 1.8 mg/dL. Patient remains on Levophed; however, at 10 mcg. She is receiving another unit of packed RBCs this morning. Hemoglobin was at 7.1 g/dL. On examination, blood pressure is 104/50, heart rate 86 per minute. She is afebrile. HEENT: Atraumatic, normocephalic. Examination of the heart S1 and S2. Examination of the lungs bilateral breath sounds are heard. Decreased breath sounds in the bases. Abdomen is soft, morbidly obese, nontender. The incision is currently dressed. Examination of lower extremities shows edema 1+ bilaterally, upper and lower extremities. TECHNOLOGY INTEGRATION SPECIALIST exam is grossly intact. Labs show sodium 133, potassium 4.5, BUN 33, serum creatinine 1.8. Hemoglobin 7.1 g/dL. ASSESSMENT: 1. Acute kidney injury, acute tubular necrosis, currently improving. Patient is nonoliguric with good urine output. Continue IV fluids, we can decrease the rate by tomorrow, as patient improves her oral intake and her blood pressure improves. 2. Anemia, posthemorrhagic after hysterectomy, currently receiving 4 units of packed RBCs, last hemoglobin 7.1 g/dL. No significant acute bleeding noted at this time. Gave her a dose of DDAVP yesterday to help with the bleeding. 3. Metabolic acidosis, currently resolved. Agree with discontinuation of the sodium acetate. PLAN: Continue normal saline decreased one patient's blood pressure improves and she has good oral intake. Repeat labs in the a.m. Continue to avoid nephrotoxic agents.
[2016-11-27 11:54] LABS: Glucose,Whole Blood 160 mg/dL (75-99)
--- NOTE | 2016-11-27 14:02 | P.PN ---
Subjective This is a pleasant 4H are old lady patient of Dr. Ledesma, she has underlying history of MTHFR mutation, asthma, diabetes mellitus type 2, hypertension and 1 episode of pulmonary emboli 4 years ago. She underwent at total abdominal hysterectomy bilateral salpingo-oophorectomy by Dr. 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 Prior to this she was chronically on Coumadin for the past 4 years until she was bridge for the procedure. Postoperatively she developed low blood pressure reading and EKG shows new onset atrial fibrillation with known history of left bundle branch block managed at selective care unit. She had required amiodarone drip secondary to rapid ventricular rate atrial fibrillation and was seen by cardiology at that time. She had medications that were titrated down including amiodarone, and was discharged to continue on Lovenox at 1 mg/kg every 12 hours with bridging Coumadin dosing. Her INR on discharge was 1.5 She was seen in emergency room secondary to dizziness and lightheadedness. Patient was at bathroom at that time and had a near syncopal event, patient denies any head trauma or musculoskeletal extremity trauma, patient denies any syncope hemoglobin on admission was 6.1 with a prior hemoglobin of 8.4 taken 2 days prior. Baseline hemoglobin was 14.1 November 14. Patient was admitted secondary to symptomatic blood loss anemia 2 units packed red blood cell was ordered with holding of Lovenox and Coumadin, consult with Dr. Suazo and cardiology, INR on admission 1.9 protamine given in the emergency room for Lovenox reversal, Creatinine also was elevated 2.8 from a previous of 1.34 taken 2 days prior to admission, baseline 1.1 11/26: Hemoglobin is 7.7 status post transfusion of 2 units of packed RBCs repeat hemoglobin 6.9. Patient will receive 1 more unit of packed RBCs. INR is 1.41. BUN is 47 creatinine 3.4. Consult added for nephrology and DDAVP has been ordered 1. Metformin discontinued. She has had low urine output and continued vaginal bleeding. He received another fluid bolus with improved urine output. Dr. Suazo has provided vaginal packing and vaginal bleeding is improved. Lovenox is scheduled to be resumed tomorrow. quality assurance monitor is a sinus rhythm and cardiology is on consult. Dr. Mckeon has increased her amiodarone and metoprolol is on hold. She is currently on norepinephrine at 15 mics. Patient is reaching 2500 mL on IS. Patient encouraged to increase oral intake. Dr. Suazo has discussed in detail patient's pathology report and no chemotherapy or radiation is necessary. 11/27: Blood pressure is improved. She has been afebrile. This morning's hemoglobin is 7.1 after 5 PM hemoglobin of 6.8. She has now been transfused with 6 units of packed RBCs. BUN at 33 and creatinine 1.8. Blood sugars have been running between 149 and 185. Magnesium has been replaced. PICC line was placed yesterday. But rule out is also on hold. Patient is status post 3 L of fluid and Levophed is currently at 7 and trying to wean off. Patient had packing removed from her vaginal area this morning and had one very large dark clot expressed and now minimal flow. Good urine output. She denies any shortness of breath. Objective - Vital Signs Vital signs: Vital Signs Temp 97.7 F 11/27/16 08:00 Pulse 106 H 11/27/16 08:00 Resp 22 11/27/16 08:00 BP 103/55 11/27/16 08:00 Pulse Ox 99 11/27/16 08:00 Intake & Output 11/26/16 11/27/16 11/27/16 18:59 06:59 18:59 Intake Total 2609.5 2110 300 Output Total 902 1350 210 Balance 1707.5 760 90 Weight 136.1 kg 137.5 kg 137.5 kg Intake: Intake, IV Titration 2299.5 1800 300 Amount Desmopressin Inj 40 mcg 50 In Sodium Chloride 0.9% 50 ml @ 200 mls/hr IVPB ONCE ONE Rx#:[id number] Norepinephrin 4 mg-0.9% 449.5 Ns Pmx 4 mg In 250 ml @ Titrate IV .Q0M PAULINO Rx#: [id number] Sodium Chloride 0.9% 1, 1300 1200 200 000 ml @ 100 mls/hr IV . Q10H PAULINO Rx#:[id number] Sodium Chloride 0.9% 1, 100 000 ml @ 150 mls/hr IV . Q6H40M PAULINO Rx#:[id number] Water For Injection, 400 600 100 Sterile 1,000 ml @ 50 mls /hr IV .[id number] PAULINO with Sodium Acetate 150 meq Rx #:[id number] Blood Product 310 310 Rc As-1 Unit 310 [id number] Rc As-1 Unit 310 [id number] Output: Urine 902 1350 210 Other: Voiding Method Indwelling Catheter Indwelling Catheter # Voids 1 - Exam General appearance: cooperative, no acute distress, obese - EENT Eyes: anicteric sclerae, EOMI, PERRLA, dentition normal, normal appearance ENT: no hard of hearing, hearing grossly normal, NA/AT, normal oropharynx, no other, no pharyngeal erythema, no thrush, no tonsillar exudates, no tonsillar swelling - Neck Neck: no lymphadenopathy, normal ROM, no other, no rigidity, no stridor, no thyromegaly - Respiratory Respiratory: bilateral: CTA, negative: diminished, dullness, rales - Gastrointestinal General gastrointestinal: soft (Aquacel silver dressing in place however is not soaked) - Integumentary Integumentary: decreased turgor, normal, pale - Neurologic Neurologic: CNII-XII intact - Musculoskeletal Musculoskeletal: gait normal, strength equal bilaterally, right sided weakness - Psychiatric Psychiatric: A&O x's 3, appropriate affect, intact judgment & insight - Labs CBC & Chem 7: 11/27/16 05:40 11/27/16 05:40 Labs: Abnormal Lab Results - Last 24 Hours (Table) 11/26/16 11/26/16 11/26/16 Range/Units 00:45 09:53 12:50 WBC 19.8 H (3.8-10.6) k/uL RBC 2.31 L (3.80-5.40) m/uL Hgb 6.9 L* (11.4-16.0) gm/dL Hct 20.8 L (34.0-46.0) % RDW (11.5-15.5) % Neutrophils # (1.3-7.7) k/uL Sodium (137-145) mmol/L Chloride (98-107) mmol/L Carbon Dioxide (22-30) mmol/L BUN (7-17) mg/dL Creatinine (0.52-1.04) mg/dL Glucose (74-99) mg/dL POC Glucose (mg/dL) 168 H (75-99) mg/dL Calcium (8.4-10.2) mg/dL Phosphorus (2.5-4.5) mg/dL Urine Appearance Cloudy H (Clear) Urine Protein Trace H (Negative) Urine Blood Moderate H (Negative) Urine Bilirubin 1+ H (Negative) Ur Leukocyte Esterase Trace H (Negative) Calcium Oxalate Crystal Occasional H (None) /hpf Amorphous Sediment Occasional H (None) /hpf 11/26/16 11/26/16 11/26/16 Range/Units 16:47 17:25 17:25 WBC 13.9 H (3.8-10.6) k/uL RBC 2.30 L (3.80-5.40) m/uL Hgb 6.8 L* (11.4-16.0) gm/dL Hct 21.3 L (34.0-46.0) % RDW 15.7 H (11.5-15.5) % Neutrophils # 11.4 H (1.3-7.7) k/uL Sodium 134 L (137-145) mmol/L Chloride 110 H (98-107) mmol/L Carbon Dioxide 16 L (22-30) mmol/L BUN 39 H (7-17) mg/dL Creatinine 2.50 H (0.52-1.04) mg/dL Glucose 152 H (74-99) mg/dL POC Glucose (mg/dL) 185 H (75-99) mg/dL Calcium 6.9 L (8.4-10.2) mg/dL Phosphorus (2.5-4.5) mg/dL Urine Appearance (Clear) Urine Protein (Negative) Urine Blood (Negative) Urine Bilirubin (Negative) Ur Leukocyte Esterase (Negative) Calcium Oxalate Crystal (None) /hpf Amorphous Sediment (None) /hpf 11/26/16 11/27/16 11/27/16 Range/Units 21:51 05:40 05:40 WBC 13.0 H (3.8-10.6) k/uL RBC 2.46 L (3.80-5.40) m/uL Hgb 7.1 L (11.4-16.0) gm/dL Hct 22.5 L (34.0-46.0) % RDW 15.6 H (11.5-15.5) % Neutrophils # 9.6 H (1.3-7.7) k/uL Sodium 133 L (137-145) mmol/L Chloride 109 H (98-107) mmol/L Carbon Dioxide 21 L (22-30) mmol/L BUN 33 H (7-17) mg/dL Creatinine 1.80 H (0.52-1.04) mg/dL Glucose 130 H (74-99) mg/dL POC Glucose (mg/dL) 145 H (75-99) mg/dL Calcium 7.4 L (8.4-10.2) mg/dL Phosphorus 2.3 L (2.5-4.5) mg/dL Urine Appearance (Clear) Urine Protein (Negative) Urine Blood (Negative) Urine Bilirubin (Negative) Ur Leukocyte Esterase (Negative) Calcium Oxalate Crystal (None) /hpf Amorphous Sediment (None) /hpf 11/27/16 Range/Units 07:31 WBC (3.8-10.6) k/uL RBC (3.80-5.40) m/uL Hgb (11.4-16.0) gm/dL Hct (34.0-46.0) % RDW (11.5-15.5) % Neutrophils # (1.3-7.7) k/uL Sodium (137-145) mmol/L Chloride (98-107) mmol/L Carbon Dioxide (22-30) mmol/L BUN (7-17) mg/dL Creatinine (0.52-1.04) mg/dL Glucose (74-99) mg/dL POC Glucose (mg/dL) 149 H (75-99) mg/dL Calcium (8.4-10.2) mg/dL Phosphorus (2.5-4.5) mg/dL Urine Appearance (Clear) Urine Protein (Negative) Urine Blood (Negative) Urine Bilirubin (Negative) Ur Leukocyte Esterase (Negative) Calcium Oxalate Crystal (None) /hpf Amorphous Sediment (None) /hpf Microbiology - Last 24 Hours (Table) 11/26/16 00:45 Urine Culture - Preliminary Urine,Catheterized Assessment and Plan Plan: 1. Acute blood loss anemia due to acute post op vaginal bleeding status post transfusion of 6 units packed red blood cell, Lovenox and Coumadin discontinued. Consult appreciated with Dr. Suazo s/p vaginal packing with improvement of bleeding. Protamine and vitamin K were given. 2. Hypovolemic shock secondary to acute blood loss anemia. Patient has been on vasopressors and multiple fluid boluses have been provided. Patient is managed in the intensive care unit and followed by Dr. Marroquin for intensive care management. 3. Focal grade 2 noninvasive endometrioid carcinoma status post total abdominal hysterectomy and salpingo-oophorectomy last 11/19/2016. Pathology was reviewed with Dr. Suazo, oncology will be consulted during this admission. No chemotherapy or radiation therapy necessary. 4. MTHFR gene mutation with prior history of pulmonary embolusx2 , she is at risk for postoperative venous thromboembolism. Hold all anticoagulation until bleeding stops. 5. Paroxysmal Atrial fibrillation history, currently on amiodarone tapering dose per her last admission 11/19/2016, cardiology is on consult last echocardiogram 11/22/2016 showed ejection fraction of 40-45% and mild MR and mild TR RV S/P less than 35, normal pericardium 6. Hypertension with hypotension. With this, near syncope related orthostasis with hemodynamic instability secondary to blood loss anemia along with the use of antihypertensive agents, no ongoing other losses except for postoperative anemia, hold lisinopril 20 mg twice daily, hold Cardizem CD 180 mg daily. Continue metoprolol 12.5 twice a day-hold. Fluid boluses given along with with blood transfusion 7. Diabetes mellitus type II. Metformin placed on hold due to acute kidney injury. 8. Asthma, mild intermittent. Continue albuterol inhaler as needed. 9. VTE prophylaxis. Hold anticoagulation. SLY hose and SCDs. 10. Gastrointestinal prophylaxis, Pepcid. 11. Proximal atrial fibrillation with episodes of A. fib with RVR. Cardiology consult. Oral amiodarone increased , metoprolol tartrate 12.5 mg twice daily- hold, Cardizem CD 180 mg--on hold due to hypotension 12. Acute kidney injury possibly due to hypotension. iv hydration. Consult nephrology. DDAVP x1. Metformin discontinued 13. Mild protein malnutrition, acute electrolyte abnormalities with hypocalcemia, hyperkalemia, I pointed 3 anemia. Elevated CPK Labs monitored monitor for rhabdo and further decompensation Discharge plan: Return home Impression and plan of care have been directed as dictated by the signing physician. Emma Lopes nurse practitioner acting as scribe for signing physician. Time with Patient: Greater than 30
[2016-11-27 14:41] LABS: Basophils # (A) 0.1 k/uL (0-0.2); Basophils % (A) 1 %; CH 29.9; Eosinophils # (A) 0.2 k/uL (0-0.7); Eosinophils % (A) 1 %; HCT 24.9 % (34.0-46.0); HDW 3.15; Luc # (Auto) 0.13; Luc % (Auto) 1; Lymphocytes # (A) 2.1 k/uL (1.0-4.8); Lymphocytes % (A) 18 %; MCH 29.4 pg (25.0-35.0); MCHC 32.2 g/dL (31.0-37.0); MCV 91.3 fL (80.0-100.0); Mean Platelet Volume 6.8; Monocytes # (A) 0.7 k/uL (0-1.0); Monocytes % (A) 6 %; Neutrophils # (A) 8.8 k/uL (1.3-7.7); Neutrophils % (A) 74 %; RBC 2.72 m/uL (3.80-5.40); RDW 15.4 % (11.5-15.5); WBC 11.9 k/uL (3.8-10.6); WBC (Perox) 11.83
--- NOTE | 2016-11-27 16:14 | P.PN ---
Subjective Principal diagnosis: Acute vaginal bleeding, recent hysterectomy, week ago. This is a 66-year-old female with history of hypercoagulable state, history of pulmonary embolism 2, her last thromboembolic episode was 4 years ago. History of chronic atrial fibrillation, type 2 diabetes, hypertension, and MT HFR gene mutation. Patient presented about a week ago and she underwent vaginal hysterectomy which converted to total abdominal hysterectomy and bilateral salpingo oophorectomy for complex endometrial hyperplasia and atypia her surgery went quite well, however she developed postoperative atrial fibrillation and this was managed by cardiology on selective. Patient was eventually placed on amiodarone, and she was discharged home about 2 days ago. Patient went back on Lovenox 120 mg twice a day as well as Coumadin orally. However on 11/25/2016, patient presented to the ER with increased vaginal bleeding for about 12 hours with passage of blood clots. She had a syncopal episode at home, but did not fall. Her hemoglobin was as low as 6.1, and her platelets were 2 91,000. Her INR yesterday was 1.9, and today is 1.3. Patient also developed worsening renal failure, creatinine on admission was 2.82 and it is 3.40 today. I believe the patient must have sustained acute tubular necrosis secondary to hypotension secondary to profound anemia. Ultrasound of the kidneys is pending, and renal consultation is also pending. No evidence of hydronephrosis was noted on the ultrasound. Considering her presentation of profound anemia and bleeding, considering her history of thromboembolic disease and hypercoagulable state, I was asked to see this patient on consultation. Presently there is no clinical history to suggest thromboembolic disease, but of course the patient is relatively high risk for thromboembolic disease. At this point I recommended we stop all anticoagulation therapy, until the bleeding is fully controlled, and hopefully in the next 5-7 days, she could be restarted back on relatively low dose of Lovenox. Holding anticoagulation therapy is very appropriate, and the benefits at this point outweigh the risks. Patient was made aware of this decision, and if she develops any thromboembolic disease, patient will need to have a Sami filter placement. Patient was reevaluated today on 11/27/2016, she received a total of 6 units of packed RBCs so far. Her hemoglobin today after unit #6 is 8.0. And she seems to be hemodynamically stable. Patient was on sodium bicarb drip until early this morning which I have discontinued. And her bicarb level is 21. No evidence of anion gap noted. BUN is 33 creatinine is 1.80. A shunt denies any shortness of breath no cough no wheezing, she had some old blood clots removed today by Dr. boyd when the vaginal packing was taken out. Objective - Vital Signs Vital signs: Vital Signs Temp 98.8 F 11/27/16 12:15 Pulse 78 11/27/16 15:00 Resp 19 11/27/16 15:00 BP 116/53 11/27/16 15:00 Pulse Ox 96 11/27/16 15:00 Intake & Output 11/26/16 11/27/16 11/27/16 18:59 06:59 18:59 Intake Total 2919.5 2110 1847.031 Output Total 902 1350 1020 Balance 2017.5 760 827.031 Weight 136.1 kg 137.5 kg 137.5 kg Intake: Intake, IV Titration 2299.5 1800 1227.031 Amount Desmopressin Inj 40 mcg 50 In Sodium Chloride 0.9% 50 ml @ 200 mls/hr IVPB ONCE ONE Rx#:[id number] Norepinephrin 16 mg-0.9% 127.031 Ns Pmx 16 mg In 250 ml @ Titrate IV .Q0M [facility] Rx#: [id number] Norepinephrin 4 mg-0.9% 449.5 Ns Pmx 4 mg In 250 ml @ Titrate IV .Q0M [facility] Rx#: [id number] Sodium Chloride 0.9% 1, 1300 1200 900 000 ml @ 100 mls/hr IV . Q10H [facility] Rx#:[id number] Sodium Chloride 0.9% 1, 100 000 ml @ 150 mls/hr IV . Q6H40M [facility] Rx#:[id number] Water For Injection, 400 600 200 Sterile 1,000 ml @ 50 mls /hr IV .[id number] [facility] with Sodium Acetate 150 meq Rx #:[id number] Tube Feeding 310 Blood Product 310 310 620 Rc As-1 Unit 310 [id number] Rc As-1 Unit 310 [id number] Rc As-1 Unit 310 [id number] Output: Urine 902 1350 1020 Other: Voiding Method Indwelling Catheter Indwelling Catheter Indwelling Catheter # Voids 1 - Exam Physical Exam: Revealed a 66-year-old female in no distress. Looks slightly pale. HEENT:[Neck is supple.] [No neck masses.] [No thyromegaly.] [No JVD.] Chest: [Clear throughout, no crackles, no rhonchi, no wheezes.] Cardiac Exam: [Normal S1 and S2, no S3 gallop, no murmur.] Abdomen: [Soft, nontender, no megaly, no rebound, no guarding, normal bowel sounds.] Extremities: [No clubbing, no edema, no cyanosis.] Neurological Exam: [No focal neurologic deficit.] - Labs CBC & Chem 7: 11/27/16 14:28 11/27/16 05:40 Labs: Abnormal Lab Results - Last 24 Hours (Table) 11/26/16 11/26/16 11/26/16 Range/Units 16:47 17:25 17:25 WBC 13.9 H (3.8-10.6) k/uL RBC 2.30 L (3.80-5.40) m/uL Hgb 6.8 L* (11.4-16.0) gm/dL Hct 21.3 L (34.0-46.0) % RDW 15.7 H (11.5-15.5) % Neutrophils # 11.4 H (1.3-7.7) k/uL Sodium 134 L (137-145) mmol/L Chloride 110 H (98-107) mmol/L Carbon Dioxide 16 L (22-30) mmol/L BUN 39 H (7-17) mg/dL Creatinine 2.50 H (0.52-1.04) mg/dL Glucose 152 H (74-99) mg/dL POC Glucose (mg/dL) 185 H (75-99) mg/dL Calcium 6.9 L (8.4-10.2) mg/dL Phosphorus (2.5-4.5) mg/dL 11/26/16 11/27/16 11/27/16 Range/Units 21:51 05:40 05:40 WBC 13.0 H (3.8-10.6) k/uL RBC 2.46 L (3.80-5.40) m/uL Hgb 7.1 L (11.4-16.0) gm/dL Hct 22.5 L (34.0-46.0) % RDW 15.6 H (11.5-15.5) % Neutrophils # 9.6 H (1.3-7.7) k/uL Sodium 133 L (137-145) mmol/L Chloride 109 H (98-107) mmol/L Carbon Dioxide 21 L (22-30) mmol/L BUN 33 H (7-17) mg/dL Creatinine 1.80 H (0.52-1.04) mg/dL Glucose 130 H (74-99) mg/dL POC Glucose (mg/dL) 145 H (75-99) mg/dL Calcium 7.4 L (8.4-10.2) mg/dL Phosphorus 2.3 L (2.5-4.5) mg/dL 11/27/16 11/27/16 11/27/16 Range/Units 07:31 11:53 14:28 WBC 11.9 H (3.8-10.6) k/uL RBC 2.72 L (3.80-5.40) m/uL Hgb 8.0 L (11.4-16.0) gm/dL Hct 24.9 L (34.0-46.0) % RDW (11.5-15.5) % Neutrophils # 8.8 H (1.3-7.7) k/uL Sodium (137-145) mmol/L Chloride (98-107) mmol/L Carbon Dioxide (22-30) mmol/L BUN (7-17) mg/dL Creatinine (0.52-1.04) mg/dL Glucose (74-99) mg/dL POC Glucose (mg/dL) 149 H 160 H (75-99) mg/dL Calcium (8.4-10.2) mg/dL Phosphorus (2.5-4.5) mg/dL Microbiology - Last 24 Hours (Table) 11/26/16 00:45 Urine Culture - Final Urine,Catheterized Assessment and Plan Plan: Impression: 1 acute vaginal bleeding with profound anemia secondary to recent hysterectomy, and worsened by the fact that the patient is on anticoagulation therapy. Patient presented with a hemoglobin as low as 6.1, and so far she has required at least 6 units of packed RBCs since admission. Her hemoglobin today is 8.0 2 focal grade 2 noninvasive endometrial carcinoma, status post total abdominal hysterectomy on 11/19/2016. 3 history of thromboembolic disease and hypercoagulable state, however her last thromboembolic episode was 4 years ago, and I took care of the patient at that time. Patient is definitely at a higher risk of being on anticoagulation therapy at this point, and I feel it would be best to hold all anticoagulation therapy until her vaginal bleeding is completely under control, and hopefully in the next few days we can restart the patient on Lovenox. At this point I believe the risks of anticoagulation therapy outweigh the benefits. 4 history of multiple comorbidities including hypertension, diabetes, mild intermittent asthma, and paroxysmal atrial fibrillation. 5 acute kidney injury, most likely acute tubular necrosis secondary to hypotension., Ultrasound showed no evidence of hydronephrosis, hence ureteral injury is unlikely, patient will likely improve with hydration and with blood products. Recommendation: Supportive care measures, will continue to monitor the patient in the ICU, keep patient off anticoagulation therapy for now, continue Venodyne boots, and will follow. Time with Patient: Less than 30
[2016-11-27 16:49] LABS: Glucose,Whole Blood 117 mg/dL (75-99)
[2016-11-27] MEDS: CYANOCOBALAMIN-FA-PYRIDOXINE 1 EACH TAB PO SCH (20:05)
[2016-11-27 20:10] LABS: Glucose,Whole Blood 173 mg/dL (75-99)
[2016-11-28 05:59] LABS: Basophils % (A) 0 %; CH 29.6; CHCM 31.9; Eosinophils # (A) 0.3 k/uL (0-0.7); Eosinophils % (A) 3 %; HCT 24.6 % (34.0-46.0); HDW 3.17; HGB 7.9 gm/dL (11.4-16.0); Hypochromasia Slight; Luc # (Auto) 0.12; Luc % (Auto) 1; Lymphocytes % (A) 20 %; MCH 30.1 pg (25.0-35.0); MCHC 32.1 g/dL (31.0-37.0); MCV 93.7 fL (80.0-100.0); Mean Platelet Volume 7.2; Monocytes # (A) 0.5 k/uL (0-1.0); Monocytes % (A) 5 %; Neutrophils % (A) 70 %; RBC 2.63 m/uL (3.80-5.40); RDW 15.5 % (11.5-15.5); WBC 9.9 k/uL (3.8-10.6); WBC (Perox) 10.45
[2016-11-28 06:15] LABS: Calcium 7.9 mg/dL (8.4-10.2); Magnesium 2.2 mg/dL (1.6-2.3); Phosphorous 2.1 mg/dL (2.5-4.5)
[2016-11-28 06:22] LABS: Prothrombin Time 10.6 sec (9.0-12.0)
[2016-11-28] MEDS ORDERED: Phosphorus Replacement Protoco 1 EACH MISC MISCELLANE PRN (06:27)
[2016-11-28] MEDS: SODIUM CHLORIDE 0.9% 1,000 ML IV SCH (06:42)
--- NOTE | 2016-11-28 07:21 | P.PN ---
Subjective Principal diagnosis: Anemia, hypotension, postoperative day #9, anticoagulation issues. Positive bowel movement, positive spontaneous urination. No pain. Scant vaginal drainage. Patient feeling well. No complaints Objective - Vital Signs Vital signs: Vital Signs Temp 98.3 F 11/28/16 04:00 Pulse 71 11/28/16 07:00 Resp 17 11/28/16 07:00 BP 99/50 11/28/16 07:00 Pulse Ox 96 11/28/16 07:00 Intake & Output 11/27/16 11/28/16 11/28/16 18:59 06:59 18:59 Intake Total 2147.031 600 20 Output Total 1220 785 Balance 927.031 -185 20 Weight 137.5 kg Intake: Intake, IV Titration 1527.031 600 20 Amount Norepinephrin 16 mg-0.9% 127.031 Ns Pmx 16 mg In 250 ml @ Titrate IV .Q0M [facility] Rx#: [id number] Sodium Chloride 0.9% 1, 1200 600 20 000 ml @ 100 mls/hr IV . Q10H [facility] Rx#:[id number] Water For Injection, 200 Sterile 1,000 ml @ 50 mls /hr IV .[id number] [facility] with Sodium Acetate 150 meq Rx #:[id number] Blood Product 620 Rc As-1 Unit 310 [id number] Output: Urine 1220 785 Other: Voiding Method Indwelling Catheter Indwelling Catheter - Constitutional General appearance: Present: average body habitus, cooperative, morbidly obese - EENT Eyes: Present: PERRLA ENT: Present: hearing grossly normal - Neck Neck: Present: normal ROM Thyroid: bilateral: normal size - Respiratory Respiratory: bilateral: CTA - Cardiovascular Rhythm: regular - Gastrointestinal General gastrointestinal: Present: normal bowel sounds - Integumentary Integumentary Comment(s): Incision clean and dry, dressing applied. Integumentary: Present: normal - Neurologic Neurologic: Present: CNII-XII intact - Musculoskeletal Musculoskeletal: Present: gait normal - Psychiatric Psychiatric: Present: A&O x's 3, appropriate affect, intact judgment & insight - Labs CBC & Chem 7: 11/28/16 05:43 11/28/16 05:43 Labs: Abnormal Lab Results - Last 24 Hours (Table) 11/27/16 11/27/16 11/27/16 Range/Units 07:31 11:53 14:28 WBC 11.9 H (3.8-10.6) k/uL RBC 2.72 L (3.80-5.40) m/uL Hgb 8.0 L (11.4-16.0) gm/dL Hct 24.9 L (34.0-46.0) % Neutrophils # 8.8 H (1.3-7.7) k/uL Sodium (137-145) mmol/L Chloride (98-107) mmol/L Carbon Dioxide (22-30) mmol/L BUN (7-17) mg/dL Creatinine (0.52-1.04) mg/dL Glucose (74-99) mg/dL POC Glucose (mg/dL) 149 H 160 H (75-99) mg/dL Calcium (8.4-10.2) mg/dL Phosphorus (2.5-4.5) mg/dL 11/27/16 11/27/16 11/28/16 Range/Units 16:45 20:08 05:43 WBC (3.8-10.6) k/uL RBC 2.63 L (3.80-5.40) m/uL Hgb 7.9 L (11.4-16.0) gm/dL Hct 24.6 L (34.0-46.0) % Neutrophils # (1.3-7.7) k/uL Sodium (137-145) mmol/L Chloride (98-107) mmol/L Carbon Dioxide (22-30) mmol/L BUN (7-17) mg/dL Creatinine (0.52-1.04) mg/dL Glucose (74-99) mg/dL POC Glucose (mg/dL) 117 H 173 H (75-99) mg/dL Calcium (8.4-10.2) mg/dL Phosphorus (2.5-4.5) mg/dL 11/28/16 Range/Units 05:43 WBC (3.8-10.6) k/uL RBC (3.80-5.40) m/uL Hgb (11.4-16.0) gm/dL Hct (34.0-46.0) % Neutrophils # (1.3-7.7) k/uL Sodium 136 L (137-145) mmol/L Chloride 111 H (98-107) mmol/L Carbon Dioxide 21 L (22-30) mmol/L BUN 23 H (7-17) mg/dL Creatinine 1.15 H (0.52-1.04) mg/dL Glucose 113 H (74-99) mg/dL POC Glucose (mg/dL) (75-99) mg/dL Calcium 7.9 L (8.4-10.2) mg/dL Phosphorus 2.1 L (2.5-4.5) mg/dL Microbiology - Last 24 Hours (Table) 11/26/16 00:45 Urine Culture - Final Urine,Catheterized Assessment and Plan Plan: Consideration for discharge home today. Careful planning regarding anticoagulation from this point forward. Consideration for Bobbi Lonnie versus aspirin daily versus Lovenox 40 mg daily, to be discussed between Dr. Bowden and Dr. Scherer. If patient is to be discharged home today, I would like to see her in the office in 1 week. Postoperative instructions again reviewed. This is an unanticipated postoperative complication, with postoperative bleeding and anemia with orthostatic changes, secondary to anticoagulation due to patient's complex medical history. History as noted includes pulmonary embolus 2 in the past, last 4 years ago. Patient also has positive MTHFR mutation, history of chronic atrial fibrillation, obesity, recent pelvic surgery , type 2 diabetes. Patient was originally discharged home on Coumadin and heparin. Plan moving forward per medical team. I have discussed with her the pathology report of the uterine specimen which is consistent with a grade 2 stage I endometrial adenocarcinoma. I have discussed the case with Dr. Erazo as well as our pathologist. No further treatment or surgery is deemed necessary for this gynecologic condition. Time with Patient: Less than 30
[2016-11-28] MEDS ORDERED: SODIUM PHOSPHATE 10 MMOL in SODIUM CHLORIDE 0.9% 250 ML IVPB ONE (07:30)
[2016-11-28] MEDS: IPRATROPIUM-ALBUTEROL 3 ML NEB INHALATION SCH ×4 (08:00→19:29)
[2016-11-28 08:37] LABS: Glucose,Whole Blood 111 mg/dL (75-99)
[2016-11-28] MEDS: METOPROLOL TARTRATE 12.5 MG TAB PO SCH ×2 (09:00→20:14)
[2016-11-28] MEDS: AMIODARONE 200 MG TAB PO SCH ×2 (09:00→20:14)
[2016-11-28 12:06] LABS: Glucose,Whole Blood 138 mg/dL (75-99)
--- NOTE | 2016-11-28 12:40 | P.PN ---
Subjective Principal diagnosis: Paroxysmal A. fib This is a pleasant 66-year-old female patient who just underwent hysterectomy about a week ago presented back to the hospital complaining of dizziness and lightheadedness. The patient is known to have hypercoagulopathy and she was taking Coumadin as an outpatient. She just underwent hysterectomy about a week ago. She was discharged home on Coumadin and Lovenox for bridging. Over the last 2 days she has been experiencing vagina bleeding. She started feeling dizzy and lightheaded and she came in to the emergency room where she was found to be severely anemic. She received 3 units of packed RBC. The Coumadin and Lovenox were stopped. She denies having any chest pain or discomfort or difficulty breathing or heart racing or fluttering. She is known to have paroxysmal atrial fibrillation and she had A. fib after the hysterectomy but currently she is in normal sinus mechanism. Hemodynamically, the patient is hypotensive and requiring a small dose of Levophed. On follow-up with the patient today, clinically she is doing good. She is off vasopressors. The patient is going to be transferred outside the ICU. Objective - Vital Signs Vital signs: Vital Signs Temp 98.0 F 11/28/16 08:00 Pulse 67 11/28/16 11:30 Resp 18 11/28/16 11:30 BP 116/50 11/28/16 09:00 Pulse Ox 97 11/28/16 09:30 Intake & Output 11/27/16 11/28/16 11/28/16 18:59 06:59 18:59 Intake Total 2147.031 600 780 Output Total 1220 785 250 Balance 927.031 -185 530 Weight 137.5 kg 137.5 kg Intake: Intake, IV Titration 1527.031 600 420 Amount Norepinephrin 16 mg-0.9% 127.031 Ns Pmx 16 mg In 250 ml @ Titrate IV .Q0M [facility] Rx#: [id number] Sodium Chloride 0.9% 1, 1200 600 170 000 ml @ 100 mls/hr IV . Q10H [facility] Rx#:[id number] Sodium Phosphate 10 mmol 250 In Sodium Chloride 0.9% 250 ml @ 125 mls/hr IVPB ONCE ONE Rx#:[id number] Water For Injection, 200 Sterile 1,000 ml @ 50 mls /hr IV .[id number] [facility] with Sodium Acetate 150 meq Rx #:[id number] Oral 360 Blood Product 620 Rc As-1 Unit 310 [id number] Output: Urine 1220 785 250 Other: Voiding Method Indwelling Catheter Indwelling Catheter Toilet # Voids 1 # Bowel Movements 1 - Constitutional General appearance: Present: no acute distress - Respiratory Respiratory: bilateral: CTA - Cardiovascular Rhythm: regular - Labs CBC & Chem 7: 11/28/16 05:43 11/28/16 05:43 Labs: Abnormal Lab Results - Last 24 Hours (Table) 11/27/16 11/27/16 11/27/16 Range/Units 14:28 16:45 20:08 WBC 11.9 H (3.8-10.6) k/uL RBC 2.72 L (3.80-5.40) m/uL Hgb 8.0 L (11.4-16.0) gm/dL Hct 24.9 L (34.0-46.0) % Neutrophils # 8.8 H (1.3-7.7) k/uL Sodium (137-145) mmol/L Chloride (98-107) mmol/L Carbon Dioxide (22-30) mmol/L BUN (7-17) mg/dL Creatinine (0.52-1.04) mg/dL Glucose (74-99) mg/dL POC Glucose (mg/dL) 117 H 173 H (75-99) mg/dL Calcium (8.4-10.2) mg/dL Phosphorus (2.5-4.5) mg/dL 11/28/16 11/28/16 11/28/16 Range/Units 05:43 05:43 08:36 WBC (3.8-10.6) k/uL RBC 2.63 L (3.80-5.40) m/uL Hgb 7.9 L (11.4-16.0) gm/dL Hct 24.6 L (34.0-46.0) % Neutrophils # (1.3-7.7) k/uL Sodium 136 L (137-145) mmol/L Chloride 111 H (98-107) mmol/L Carbon Dioxide 21 L (22-30) mmol/L BUN 23 H (7-17) mg/dL Creatinine 1.15 H (0.52-1.04) mg/dL Glucose 113 H (74-99) mg/dL POC Glucose (mg/dL) 111 H (75-99) mg/dL Calcium 7.9 L (8.4-10.2) mg/dL Phosphorus 2.1 L (2.5-4.5) mg/dL 11/28/16 Range/Units 12:05 WBC (3.8-10.6) k/uL RBC (3.80-5.40) m/uL Hgb (11.4-16.0) gm/dL Hct (34.0-46.0) % Neutrophils # (1.3-7.7) k/uL Sodium (137-145) mmol/L Chloride (98-107) mmol/L Carbon Dioxide (22-30) mmol/L BUN (7-17) mg/dL Creatinine (0.52-1.04) mg/dL Glucose (74-99) mg/dL POC Glucose (mg/dL) 138 H (75-99) mg/dL Calcium (8.4-10.2) mg/dL Phosphorus (2.5-4.5) mg/dL Microbiology - Last 24 Hours (Table) 11/26/16 00:45 Urine Culture - Final Urine,Catheterized Assessment and Plan Plan: Assessment Vagina bleeding Anemia secondary to the above Acute on chronic renal failure Paroxysmal atrial fibrillation Multiple comorbid conditions Plan Monitor the hemoglobin Continue holding anticoagulation The patient has been maintaining normal sinus mechanism Continue the current dose of amiodarone Follow-up with the patient
[2016-11-28] MEDS: INSULIN LISPRO (humaLOG) 300 UNIT/3 ML VIAL SQ SCH ×4 (13:37→20:14)
[2016-11-28] MEDS: DOCUSATE 100 MG CAP PO SCH ×2 (13:45→20:14)
[2016-11-28] MEDS: PANTOPRAZOLE 40 MG TABLET PO SCH (13:46)
--- NOTE | 2016-11-28 13:59 | P.PN ---
Subjective Principal diagnosis: Acute vaginal bleeding, recent hysterectomy, week ago. This is a 66-year-old female with history of hypercoagulable state, history of pulmonary embolism 2, her last thromboembolic episode was 4 years ago. History of chronic atrial fibrillation, type 2 diabetes, hypertension, and MT HFR gene mutation. Patient presented about a week ago and she underwent vaginal hysterectomy which converted to total abdominal hysterectomy and bilateral salpingo oophorectomy for complex endometrial hyperplasia and atypia her surgery went quite well, however she developed postoperative atrial fibrillation and this was managed by cardiology on selective. Patient was eventually placed on amiodarone, and she was discharged home about 2 days ago. Patient went back on Lovenox 120 mg twice a day as well as Coumadin orally. However on 11/25/2016, patient presented to the ER with increased vaginal bleeding for about 12 hours with passage of blood clots. She had a syncopal episode at home, but did not fall. Her hemoglobin was as low as 6.1, and her platelets were 2 91,000. Her INR yesterday was 1.9, and today is 1.3. Patient also developed worsening renal failure, creatinine on admission was 2.82 and it is 3.40 today. I believe the patient must have sustained acute tubular necrosis secondary to hypotension secondary to profound anemia. Ultrasound of the kidneys is pending, and renal consultation is also pending. No evidence of hydronephrosis was noted on the ultrasound. Considering her presentation of profound anemia and bleeding, considering her history of thromboembolic disease and hypercoagulable state, I was asked to see this patient on consultation. Presently there is no clinical history to suggest thromboembolic disease, but of course the patient is relatively high risk for thromboembolic disease. At this point I recommended we stop all anticoagulation therapy, until the bleeding is fully controlled, and hopefully in the next 5-7 days, she could be restarted back on relatively low dose of Lovenox. Holding anticoagulation therapy is very appropriate, and the benefits at this point outweigh the risks. Patient was made aware of this decision, and if she develops any thromboembolic disease, patient will need to have a Sami filter placement. Patient was reevaluated today on 11/27/2016, she received a total of 6 units of packed RBCs so far. Her hemoglobin today after unit #6 is 8.0. And she seems to be hemodynamically stable. Patient was on sodium bicarb drip until early this morning which I have discontinued. And her bicarb level is 21. No evidence of anion gap noted. BUN is 33 creatinine is 1.80. Patient denies any shortness of breath no cough no wheezing, she had some old blood clots removed today by Dr. boyd when the vaginal packing was taken out. Patient was reevaluated on 12/25/2016, no more blood was transfused since the last 6 units was given. Her hemoglobin seems to be stabilizing, no active bleeding is noted, patient remains off anticoagulation therapy. Her renal profile is improving, hemodynamically the patient is stable, and I have plans to transfer the patient out of the ICU today for further follow-up on a cardiac floor. Labs were reviewed hemoglobin is 7.9. Basic metabolic profile is normal renal profile showed a BUN of 23 creatinine of 1.15. Objective - Vital Signs Vital signs: Vital Signs Temp 98.0 F 11/28/16 13:30 Pulse 65 11/28/16 13:30 Resp 12 11/28/16 13:30 BP 125/60 11/28/16 13:30 Pulse Ox 95 11/28/16 13:30 Intake & Output 11/27/16 11/28/16 11/28/16 18:59 06:59 18:59 Intake Total 2147.031 600 880 Output Total 1220 785 500 Balance 927.031 -185 380 Weight 137.5 kg 137.5 kg Intake: Intake, IV Titration 1527.031 600 520 Amount Norepinephrin 16 mg-0.9% 127.031 Ns Pmx 16 mg In 250 ml @ Titrate IV .Q0M PAULINO Rx#: [id number] Sodium Chloride 0.9% 1, 1200 600 270 000 ml @ 100 mls/hr IV . Q10H PAULINO Rx#:[id number] Sodium Phosphate 10 mmol 250 In Sodium Chloride 0.9% 250 ml @ 125 mls/hr IVPB ONCE ONE Rx#:[id number] Water For Injection, 200 Sterile 1,000 ml @ 50 mls /hr IV .[id number] PAULINO with Sodium Acetate 150 meq Rx #:[id number] Oral 360 Blood Product 620 Rc As-1 Unit 310 [id number] Output: Urine 1220 785 500 Other: Voiding Method Indwelling Catheter Indwelling Catheter Toilet # Voids 1 # Bowel Movements 1 - Exam Physical Exam: Revealed a 66-year-old female in no distress. Looks slightly pale. HEENT:[Neck is supple.] [No neck masses.] [No thyromegaly.] [No JVD.] Chest: [Clear throughout, no crackles, no rhonchi, no wheezes.] Cardiac Exam: [Normal S1 and S2, no S3 gallop, no murmur.] Abdomen: [Soft, nontender, no megaly, no rebound, no guarding, normal bowel sounds.] Extremities: [No clubbing, no edema, no cyanosis.] Neurological Exam: [No focal neurologic deficit.] - Labs CBC & Chem 7: 11/28/16 05:43 11/28/16 05:43 Labs: Abnormal Lab Results - Last 24 Hours (Table) 11/27/16 11/27/16 11/27/16 Range/Units 14:28 16:45 20:08 WBC 11.9 H (3.8-10.6) k/uL RBC 2.72 L (3.80-5.40) m/uL Hgb 8.0 L (11.4-16.0) gm/dL Hct 24.9 L (34.0-46.0) % Neutrophils # 8.8 H (1.3-7.7) k/uL Sodium (137-145) mmol/L Chloride (98-107) mmol/L Carbon Dioxide (22-30) mmol/L BUN (7-17) mg/dL Creatinine (0.52-1.04) mg/dL Glucose (74-99) mg/dL POC Glucose (mg/dL) 117 H 173 H (75-99) mg/dL Calcium (8.4-10.2) mg/dL Phosphorus (2.5-4.5) mg/dL 11/28/16 11/28/16 11/28/16 Range/Units 05:43 05:43 08:36 WBC (3.8-10.6) k/uL RBC 2.63 L (3.80-5.40) m/uL Hgb 7.9 L (11.4-16.0) gm/dL Hct 24.6 L (34.0-46.0) % Neutrophils # (1.3-7.7) k/uL Sodium 136 L (137-145) mmol/L Chloride 111 H (98-107) mmol/L Carbon Dioxide 21 L (22-30) mmol/L BUN 23 H (7-17) mg/dL Creatinine 1.15 H (0.52-1.04) mg/dL Glucose 113 H (74-99) mg/dL POC Glucose (mg/dL) 111 H (75-99) mg/dL Calcium 7.9 L (8.4-10.2) mg/dL Phosphorus 2.1 L (2.5-4.5) mg/dL 11/28/16 Range/Units 12:05 WBC (3.8-10.6) k/uL RBC (3.80-5.40) m/uL Hgb (11.4-16.0) gm/dL Hct (34.0-46.0) % Neutrophils # (1.3-7.7) k/uL Sodium (137-145) mmol/L Chloride (98-107) mmol/L Carbon Dioxide (22-30) mmol/L BUN (7-17) mg/dL Creatinine (0.52-1.04) mg/dL Glucose (74-99) mg/dL POC Glucose (mg/dL) 138 H (75-99) mg/dL Calcium (8.4-10.2) mg/dL Phosphorus (2.5-4.5) mg/dL Microbiology - Last 24 Hours (Table) 11/26/16 00:45 Urine Culture - Final Urine,Catheterized Assessment and Plan Plan: Impression: 1 acute vaginal bleeding with profound anemia secondary to recent hysterectomy, and worsened by the fact that the patient is on anticoagulation therapy. Patient presented with a hemoglobin as low as 6.1, and so far she has required at least 6 units of packed RBCs since admission. Her hemoglobin today is 8.0 2 focal grade 2 noninvasive endometrial carcinoma, status post total abdominal hysterectomy on 11/19/2016. 3 history of thromboembolic disease and hypercoagulable state, however her last thromboembolic episode was 4 years ago, and I took care of the patient at that time. Patient is definitely at a higher risk of being on anticoagulation therapy at this point, and I feel it would be best to hold all anticoagulation therapy until her vaginal bleeding is completely under control, and hopefully in the next few days we can restart the patient on Lovenox. At this point I believe the risks of anticoagulation therapy outweigh the benefits. 4 history of multiple comorbidities including hypertension, diabetes, mild intermittent asthma, and paroxysmal atrial fibrillation. 5 acute kidney injury, most likely acute tubular necrosis secondary to hypotension., Ultrasound showed no evidence of hydronephrosis, hence ureteral injury is unlikely, patient will likely improve with hydration and with blood products. Recommendation: Supportive care measures, will transfer patient out of the ICU today, continue to follow closely, possible discharge planning in the next couple of days. Patient will need to be ambulated, and once she is out of the ICU she would likely ambulate in the hallway. Time with Patient: Less than 30
--- NOTE | 2016-11-28 14:34 | P.PN ---
Subjective This is a pleasant 4H are old lady patient of Dr. Ledesma, she has underlying history of MTHFR mutation, asthma, diabetes mellitus type 2, hypertension and 1 episode of pulmonary emboli 4 years ago. She underwent at total abdominal hysterectomy bilateral salpingo-oophorectomy by Dr. 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 Prior to this she was chronically on Coumadin for the past 4 years until she was bridge for the procedure. Postoperatively she developed low blood pressure reading and EKG shows new onset atrial fibrillation with known history of left bundle branch block managed at selective care unit. She had required amiodarone drip secondary to rapid ventricular rate atrial fibrillation and was seen by cardiology at that time. She had medications that were titrated down including amiodarone, and was discharged to continue on Lovenox at 1 mg/kg every 12 hours with bridging Coumadin dosing. Her INR on discharge was 1.5 She was seen in emergency room secondary to dizziness and lightheadedness. Patient was at bathroom at that time and had a near syncopal event, patient denies any head trauma or musculoskeletal extremity trauma, patient denies any syncope hemoglobin on admission was 6.1 with a prior hemoglobin of 8.4 taken 2 days prior. Baseline hemoglobin was 14.1 November 14. Patient was admitted secondary to symptomatic blood loss anemia 2 units packed red blood cell was ordered with holding of Lovenox and Coumadin, consult with Dr. Suazo and cardiology, INR on admission 1.9 protamine given in the emergency room for Lovenox reversal, Creatinine also was elevated 2.8 from a previous of 1.34 taken 2 days prior to admission, baseline 1.1 11/26: Hemoglobin is 7.7 status post transfusion of 2 units of packed RBCs repeat hemoglobin 6.9. Patient will receive 1 more unit of packed RBCs. INR is 1.41. BUN is 47 creatinine 3.4. Consult added for nephrology and DDAVP has been ordered 1. Metformin discontinued. She has had low urine output and continued vaginal bleeding. He received another fluid bolus with improved urine output. Dr. Suazo has provided vaginal packing and vaginal bleeding is improved. Lovenox is scheduled to be resumed tomorrow. seat scooper machine is a sinus rhythm and cardiology is on consult. Dr. Mckeon has increased her amiodarone and metoprolol is on hold. She is currently on norepinephrine at 15 mics. Patient is reaching 2500 mL on IS. Patient encouraged to increase oral intake. Dr. Suazo has discussed in detail patient's pathology report and no chemotherapy or radiation is necessary. 11/27: Blood pressure is improved. She has been afebrile. This morning's hemoglobin is 7.1 after 5 PM hemoglobin of 6.8. She has now been transfused with 6 units of packed RBCs. BUN at 33 and creatinine 1.8. Blood sugars have been running between 149 and 185. Magnesium has been replaced. PICC line was placed yesterday. But rule out is also on hold. Patient is status post 3 L of fluid and Levophed is currently at 7 and trying to wean off. Patient had packing removed from her vaginal area this morning and had one very large dark clot expressed and now minimal flow. Good urine output. She denies any shortness of breath. 11/28: Hemoglobin is 7.9. Patient is status post 6 units of packed RBCs. BUN 23 and creatinine 1.15. INR is 1.0. She is now having scant amount of vaginal discharge. Dr. Suazo has cleared her for discharge. She is off vasopressors. Patient is clear for transfer out of the intensive care unit. Consult added for Dr. Catalan regarding anticoagulation recommendations. Objective - Vital Signs Vital signs: Vital Signs Temp 98.0 F 11/28/16 08:00 Pulse 104 H 11/28/16 09:00 Resp 19 11/28/16 09:00 BP 116/50 11/28/16 09:00 Pulse Ox 97 11/28/16 09:00 Intake & Output 11/27/16 11/28/16 11/28/16 18:59 06:59 18:59 Intake Total 2147.031 600 680 Output Total 1220 785 250 Balance 927.031 -185 430 Weight 137.5 kg 137.5 kg Intake: Intake, IV Titration 1527.031 600 320 Amount Norepinephrin 16 mg-0.9% 127.031 Ns Pmx 16 mg In 250 ml @ Titrate IV .Q0M PAULINO Rx#: [id number] Sodium Chloride 0.9% 1, 1200 600 70 000 ml @ 100 mls/hr IV . Q10H PAULINO Rx#:[id number] Sodium Phosphate 10 mmol 250 In Sodium Chloride 0.9% 250 ml @ 125 mls/hr IVPB ONCE ONE Rx#:[id number] Water For Injection, 200 Sterile 1,000 ml @ 50 mls /hr IV .[id number] PAULINO with Sodium Acetate 150 meq Rx #:[id number] Oral 360 Blood Product 620 Rc As-1 Unit 310 [id number] Output: Urine 1220 785 250 Other: Voiding Method Indwelling Catheter Indwelling Catheter Toilet # Voids 1 # Bowel Movements 1 - Exam General appearance: cooperative, no acute distress, obese - EENT Eyes: anicteric sclerae, EOMI, PERRLA, dentition normal, normal appearance ENT: no hard of hearing, hearing grossly normal, NA/AT, normal oropharynx, no other, no pharyngeal erythema, no thrush, no tonsillar exudates, no tonsillar swelling - Neck Neck: no lymphadenopathy, normal ROM, no other, no rigidity, no stridor, no thyromegaly - Respiratory Respiratory: bilateral: CTA, negative: diminished, dullness, rales - Gastrointestinal General gastrointestinal: soft (Aquacel silver dressing in place however is not soaked) - Integumentary Integumentary: decreased turgor, normal, pale - Neurologic Neurologic: CNII-XII intact - Musculoskeletal Musculoskeletal: gait normal, strength equal bilaterally, right sided weakness - Psychiatric Psychiatric: A&O x's 3, appropriate affect, intact judgment & insight - Labs CBC & Chem 7: 11/28/16 05:43 11/28/16 05:43 Labs: Abnormal Lab Results - Last 24 Hours (Table) 11/27/16 11/27/16 11/27/16 Range/Units 11:53 14:28 16:45 WBC 11.9 H (3.8-10.6) k/uL RBC 2.72 L (3.80-5.40) m/uL Hgb 8.0 L (11.4-16.0) gm/dL Hct 24.9 L (34.0-46.0) % Neutrophils # 8.8 H (1.3-7.7) k/uL Sodium (137-145) mmol/L Chloride (98-107) mmol/L Carbon Dioxide (22-30) mmol/L BUN (7-17) mg/dL Creatinine (0.52-1.04) mg/dL Glucose (74-99) mg/dL POC Glucose (mg/dL) 160 H 117 H (75-99) mg/dL Calcium (8.4-10.2) mg/dL Phosphorus (2.5-4.5) mg/dL 11/27/16 11/28/16 11/28/16 Range/Units 20:08 05:43 05:43 WBC (3.8-10.6) k/uL RBC 2.63 L (3.80-5.40) m/uL Hgb 7.9 L (11.4-16.0) gm/dL Hct 24.6 L (34.0-46.0) % Neutrophils # (1.3-7.7) k/uL Sodium 136 L (137-145) mmol/L Chloride 111 H (98-107) mmol/L Carbon Dioxide 21 L (22-30) mmol/L BUN 23 H (7-17) mg/dL Creatinine 1.15 H (0.52-1.04) mg/dL Glucose 113 H (74-99) mg/dL POC Glucose (mg/dL) 173 H (75-99) mg/dL Calcium 7.9 L (8.4-10.2) mg/dL Phosphorus 2.1 L (2.5-4.5) mg/dL 11/28/16 Range/Units 08:36 WBC (3.8-10.6) k/uL RBC (3.80-5.40) m/uL Hgb (11.4-16.0) gm/dL Hct (34.0-46.0) % Neutrophils # (1.3-7.7) k/uL Sodium (137-145) mmol/L Chloride (98-107) mmol/L Carbon Dioxide (22-30) mmol/L BUN (7-17) mg/dL Creatinine (0.52-1.04) mg/dL Glucose (74-99) mg/dL POC Glucose (mg/dL) 111 H (75-99) mg/dL Calcium (8.4-10.2) mg/dL Phosphorus (2.5-4.5) mg/dL Microbiology - Last 24 Hours (Table) 11/26/16 00:45 Urine Culture - Final Urine,Catheterized Assessment and Plan Plan: 1. Acute blood loss anemia due to acute post op vaginal bleeding secondary to unexpected postop complication and effects of Lovenox and Coumadin status post transfusion of 6 units packed red blood cell, Lovenox and Coumadin discontinued. Consult appreciated with Dr. Suazo s/p vaginal packing with improvement of bleeding. Protamine and vitamin K were given. 2. Hypovolemic shock secondary to acute blood loss anemia. Patient has been on vasopressors and multiple fluid boluses have been provided. Patient is managed in the intensive care unit and followed by Dr. Marroquin for intensive care management. Patient has been stabilized and will be transferred out of intensive care unit. 3. Focal grade 2 noninvasive endometrioid carcinoma status post total abdominal hysterectomy and salpingo-oophorectomy last 11/19/2016. Pathology was reviewed with Dr. Suazo, oncology will be consulted during this admission. No chemotherapy or radiation therapy necessary. 4. MTHFR gene mutation with prior history of pulmonary embolusx2 , she is at risk for postoperative venous thromboembolism. Hold all anticoagulation until bleeding stops. Insult with Dr. Catalan regarding resuming anticoagulation 5. Paroxysmal Atrial fibrillation history, currently on amiodarone tapering dose per her last admission 11/19/2016, cardiology is on consult last echocardiogram 11/22/2016 showed ejection fraction of 40-45% and mild MR and mild TR RV S/P less than 35, normal pericardium 6. Hypertension with hypotension. With this, near syncope related orthostasis with hemodynamic instability secondary to blood loss anemia along with the use of antihypertensive agents, no ongoing other losses except for postoperative anemia, hold lisinopril 20 mg twice daily, hold Cardizem CD 180 mg daily. Continue metoprolol 12.5 twice a day-hold. Fluid boluses given along with with blood transfusion 7. Diabetes mellitus type II. Metformin placed on hold due to acute kidney injury. 8. Asthma, mild intermittent. Continue albuterol inhaler as needed. 9. VTE prophylaxis. Hold anticoagulation. SLY hose and SCDs. 10. Gastrointestinal prophylaxis, Pepcid. 11. Proximal atrial fibrillation with episodes of A. fib with RVR. Cardiology consult. Oral amiodarone increased , metoprolol tartrate 12.5 mg twice daily- hold, Cardizem CD 180 mg--on hold due to hypotension 12. Acute kidney injury possibly due to hypotension. iv hydration. Consult nephrology. DDAVP x1. Metformin discontinued 13. Mild protein malnutrition, acute electrolyte abnormalities with hypocalcemia, hyperkalemia, I pointed 3 anemia. Elevated CPK Labs monitored monitor for rhabdo and further decompensation Discharge plan: Return home Impression and plan of care have been directed as dictated by the signing physician. Emma Lopes nurse practitioner acting as scribe for signing physician. Time with Patient: Greater than 30
--- NOTE | 2016-11-28 17:07 | PN ---
Patient is seen for followup for acute kidney injury secondary to ATN from hypotension, hypoperfusion. Her renal function has been improving with creatinine now down to 1.15. There is no further bleeding noted. Patient is off of Levophed. Her hemoglobin this morning was 7.9 g/dL. On examination, blood pressure is 125/60, heart rate 73 per minute. She is afebrile. EXAMINATION OF THE HEART: S1 and S2. EXAMINATION OF THE LUNGS: Bilateral breath sounds are heard. ABDOMEN: Soft, obese. Examination of lower extremities shows edema 1+ bilaterally. D[employer]NSH[employer] exam is grossly intact. Labs show sodium 136, potassium 5.0, BUN 23, serum creatinine 1.15. Hemoglobin 7.9 g/dL. Phosphorus 2.1. ASSESSMENT: 1. Acute kidney injury, acute tubular necrosis, currently non-oliguric, with significantly improved renal function, creatinine coming down to 1.15 from 3.4 mg/dL. Patient is currently eating. We can decrease the IV fluids and possibly discontinue the fluids in the next day or so. 2. Anemia from bleeding after hysterectomy, currently stopped. 3. Hypotension from severe anemia, now improved. Patient is off of the Levophed. 4. Hypophosphatemia, status post replacement. PLAN: Decrease IV fluids. Continue to encourage increased oral intake. Repeat labs in a.m.
[2016-11-28 17:23] LABS: Glucose,Whole Blood 133 mg/dL (75-99)
[2016-11-28] MEDS: CYANOCOBALAMIN-FA-PYRIDOXINE 1 EACH TAB PO SCH (20:14)
[2016-11-28 20:15] LABS: Glucose,Whole Blood 144 mg/dL (75-99)
[2016-11-29] MEDS: SODIUM CHLORIDE 0.9% 1,000 ML IV SCH ×2 (05:06→19:34)
[2016-11-29 05:21] LABS: INR 1.1 (<1.1); Prothrombin Time 10.9 sec (9.0-12.0)
[2016-11-29 05:29] LABS: Anisocytosis Slight; Basophils % (A) 0 %; CH 29.9; CHCM 32.8; Eosinophils # (A) 0.4 k/uL (0-0.7); Eosinophils % (A) 4 %; HCT 21.9 % (34.0-46.0); HGB 7.2 gm/dL (11.4-16.0); Luc # (Auto) 0.15; Luc % (Auto) 2; Lymphocytes # (A) 2.1 k/uL (1.0-4.8); Lymphocytes % (A) 22 %; MCH 30.3 pg (25.0-35.0); MCHC 32.9 g/dL (31.0-37.0); MCV 92.1 fL (80.0-100.0); Mean Platelet Volume 7.8; Monocytes # (A) 0.5 k/uL (0-1.0); Monocytes % (A) 5 %; Neutrophils # (A) 6.6 k/uL (1.3-7.7); Neutrophils % (A) 68 %; RBC 2.38 m/uL (3.80-5.40); RDW 16.4 % (11.5-15.5); WBC 9.7 k/uL (3.8-10.6); WBC (Perox) 9.97
[2016-11-29 05:48] LABS: Phosphorous 2.6 mg/dL (2.5-4.5); Potassium 4.8 mmol/L (3.5-5.1)
[2016-11-29] MEDS: IPRATROPIUM-ALBUTEROL 3 ML NEB INHALATION SCH ×4 (07:53→20:00)
[2016-11-29 07:54] LABS: Glucose,Whole Blood 113 mg/dL (75-99)
[2016-11-29] MEDS: INSULIN LISPRO (humaLOG) 300 UNIT/3 ML VIAL SQ SCH ×4 (07:55→20:04)
[2016-11-29] MEDS: METOPROLOL TARTRATE 12.5 MG TAB PO SCH (07:55)
[2016-11-29] MEDS: AMIODARONE 200 MG TAB PO SCH ×2 (07:56→20:03)
[2016-11-29] MEDS: PANTOPRAZOLE 40 MG TABLET PO SCH (07:56)
[2016-11-29] MEDS: DOCUSATE 100 MG CAP PO SCH ×2 (07:56→20:04)
[2016-11-29] MEDS ORDERED: METOPROLOL TARTRATE 12.5 MG TAB PO STA (10:25)
[2016-11-29] MEDS: ENOXAPARIN 40 MG/0.4 ML SYRINGE SQ SCH (10:33)
--- NOTE | 2016-11-29 10:40 | P.PN ---
Subjective Principal diagnosis: Paroxysmal A. fib This is a pleasant 66-year-old female patient who just underwent hysterectomy about a week ago presented back to the hospital complaining of dizziness and lightheadedness. The patient is known to have hypercoagulopathy and she was taking Coumadin as an outpatient. She just underwent hysterectomy about a week ago. She was discharged home on Coumadin and Lovenox for bridging. Over the last 2 days she has been experiencing vagina bleeding. She started feeling dizzy and lightheaded and she came in to the emergency room where she was found to be severely anemic. She received 3 units of packed RBC. The Coumadin and Lovenox were stopped. She denies having any chest pain or discomfort or difficulty breathing or heart racing or fluttering. She is known to have paroxysmal atrial fibrillation and she had A. fib after the hysterectomy but currently she is in normal sinus mechanism. The patient has been maintaining normal sinus mechanism during ICU stay but last night she went into an A. fib. Currently she is in A. fib with slightly uncontrolled heart rate. Heart rate has been between 100 to 110 beats per minutes. She is going to start on Lovenox as well as for anticoagulation. I'm going to increase the dose of metoprolol to 25 mg by mouth twice a day Objective - Vital Signs Vital signs: Vital Signs Temp 98.3 F 11/29/16 00:00 Pulse 107 H 11/29/16 08:00 Resp 15 11/29/16 08:00 BP 99/51 11/29/16 08:00 Pulse Ox 97 11/29/16 08:00 Intake & Output 11/28/16 11/29/16 11/29/16 18:59 06:59 18:59 Intake Total 930 560 Output Total 750 500 250 Balance 180 60 -250 Weight 137.5 kg 137.5 kg 137.5 kg Intake: IV 310 0.9 310 Intake, IV Titration 570 Amount Sodium Chloride 0.9% 1, 320 000 ml @ 50 mls/hr IV . Q20H [facility] Rx#:[id number] Sodium Phosphate 10 mmol 250 In Sodium Chloride 0.9% 250 ml @ 125 mls/hr IVPB ONCE ONE Rx#:[id number] Oral 360 250 Output: Urine 750 500 250 Other: Voiding Method Toilet Toilet Toilet # Voids 1 1 1 # Bowel Movements 2 1 1 - Constitutional General appearance: Present: no acute distress - Respiratory Respiratory: bilateral: CTA - Cardiovascular Rhythm: irregularly irregular - Labs CBC & Chem 7: 11/29/16 05:00 11/29/16 05:00 Labs: Abnormal Lab Results - Last 24 Hours (Table) 11/28/16 11/28/16 11/28/16 Range/Units 12:05 17:21 20:13 RBC (3.80-5.40) m/uL Hgb (11.4-16.0) gm/dL Hct (34.0-46.0) % RDW (11.5-15.5) % Sodium (137-145) mmol/L Creatinine (0.52-1.04) mg/dL Glucose (74-99) mg/dL POC Glucose (mg/dL) 138 H 133 H 144 H (75-99) mg/dL Calcium (8.4-10.2) mg/dL 11/29/16 11/29/16 11/29/16 Range/Units 05:00 05:00 07:52 RBC 2.38 L (3.80-5.40) m/uL Hgb 7.2 L (11.4-16.0) gm/dL Hct 21.9 L (34.0-46.0) % RDW 16.4 H (11.5-15.5) % Sodium 136 L (137-145) mmol/L Creatinine 1.10 H (0.52-1.04) mg/dL Glucose 108 H (74-99) mg/dL POC Glucose (mg/dL) 113 H (75-99) mg/dL Calcium 8.0 L (8.4-10.2) mg/dL Assessment and Plan Plan: Assessment Vagina bleeding Anemia secondary to the above Acute on chronic renal failure Paroxysmal atrial fibrillation Multiple comorbid conditions Plan Monitor the hemoglobin Increase the dose of metoprolol for heart rate control Follow-up with the patient
[2016-11-29 12:14] LABS: Glucose,Whole Blood 170 mg/dL (75-99)
--- NOTE | 2016-11-29 13:58 | P.PN ---
Subjective Principal diagnosis: Acute vaginal bleeding, recent hysterectomy, 10 days ago This is a 66-year-old female with history of hypercoagulable state, history of pulmonary embolism 2, her last thromboembolic episode was 4 years ago. History of chronic atrial fibrillation, type 2 diabetes, hypertension, and MT HFR gene mutation. Patient presented about a week ago and she underwent vaginal hysterectomy which converted to total abdominal hysterectomy and bilateral salpingo oophorectomy for complex endometrial hyperplasia and atypia her surgery went quite well, however she developed postoperative atrial fibrillation and this was managed by cardiology on selective. Patient was eventually placed on amiodarone, and she was discharged home about 2 days ago. Patient went back on Lovenox 120 mg twice a day as well as Coumadin orally. However on 11/25/2016, patient presented to the ER with increased vaginal bleeding for about 12 hours with passage of blood clots. She had a syncopal episode at home, but did not fall. Her hemoglobin was as low as 6.1, and her platelets were 2 91,000. Her INR yesterday was 1.9, and today is 1.3. Patient also developed worsening renal failure, creatinine on admission was 2.82 and it is 3.40 today. I believe the patient must have sustained acute tubular necrosis secondary to hypotension secondary to profound anemia. Ultrasound of the kidneys is pending, and renal consultation is also pending. No evidence of hydronephrosis was noted on the ultrasound. Considering her presentation of profound anemia and bleeding, considering her history of thromboembolic disease and hypercoagulable state, I was asked to see this patient on consultation. Presently there is no clinical history to suggest thromboembolic disease, but of course the patient is relatively high risk for thromboembolic disease. At this point I recommended we stop all anticoagulation therapy, until the bleeding is fully controlled, and hopefully in the next 5-7 days, she could be restarted back on relatively low dose of Lovenox. Holding anticoagulation therapy is very appropriate, and the benefits at this point outweigh the risks. Patient was made aware of this decision, and if she develops any thromboembolic disease, patient will need to have a Oxbow filter placement. Patient was reevaluated today on 11/27/2016, she received a total of 6 units of packed RBCs so far. Her hemoglobin today after unit #6 is 8.0. And she seems to be hemodynamically stable. Patient was on sodium bicarb drip until early this morning which I have discontinued. And her bicarb level is 21. No evidence of anion gap noted. BUN is 33 creatinine is 1.80. Patient denies any shortness of breath no cough no wheezing, she had some old blood clots removed today by Dr. boyd when the vaginal packing was taken out. Patient was reevaluated on 11/28/2016, no more blood was transfused since the last 6 units was given. Her hemoglobin seems to be stabilizing, no active bleeding is noted, patient remains off anticoagulation therapy. Her renal profile is improving, hemodynamically the patient is stable, and I have plans to transfer the patient out of the ICU today for further follow-up on a cardiac floor. Labs were reviewed hemoglobin is 7.9. Basic metabolic profile is normal renal profile showed a BUN of 23 creatinine of 1.15. On 11/29/2016, patient seems to be doing better, no evidence of active bleeding, hemoglobin is 7.2, it was 7.9 yesterday, but clinically no bleeding. I believe the low hemoglobin is probably dilutional and related to blood draws over the last 24 hours. At any rate patient is hemodynamically stable, she developed an episode of atrial fibrillation being addressed by cardiology, and I still believe the patient is not quite ready to go back on Coumadin at this point, I will recommend a small dose of Lovenox 40 mg subcu daily, this will be increased as we go along, as long as the patient does not develop any vaginal bleeding again. Patient is still in the intensive care unit, but she is basically a selective overflow. All her labs were reviewed, renal profile is back to baseline. Objective - Vital Signs Vital signs: Vital Signs Temp 98.4 F 11/29/16 10:00 Pulse 57 L 11/29/16 12:00 Resp 20 11/29/16 12:00 BP 127/57 11/29/16 12:00 Pulse Ox 96 11/29/16 10:00 Intake & Output 11/28/16 11/29/16 11/29/16 18:59 06:59 18:59 Intake Total 930 560 Output Total 750 500 500 Balance 180 60 -500 Weight 137.5 kg 137.5 kg 137.5 kg Intake: IV 310 0.9 310 Intake, IV Titration 570 Amount Sodium Chloride 0.9% 1, 320 000 ml @ 50 mls/hr IV . Q20H [facility] Rx#:[id number] Sodium Phosphate 10 mmol 250 In Sodium Chloride 0.9% 250 ml @ 125 mls/hr IVPB ONCE ONE Rx#:[id number] Oral 360 250 Output: Urine 750 500 500 Other: Voiding Method Toilet Toilet Toilet # Voids 1 1 1 # Bowel Movements 2 1 1 - Exam Physical Exam: Revealed a 66-year-old female in no distress. Looks slightly pale. HEENT:[Neck is supple.] [No neck masses.] [No thyromegaly.] [No JVD.] Chest: [Clear throughout, no crackles, no rhonchi, no wheezes.] Cardiac Exam: [Normal S1 and S2, no S3 gallop, no murmur.] Abdomen: [Soft, nontender, no megaly, no rebound, no guarding, normal bowel sounds.] Extremities: [No clubbing, no edema, no cyanosis.] Neurological Exam: [No focal neurologic deficit.] - Labs CBC & Chem 7: 11/29/16 05:00 11/29/16 05:00 Labs: Abnormal Lab Results - Last 24 Hours (Table) 11/28/16 11/28/16 11/29/16 Range/Units 17:21 20:13 05:00 RBC 2.38 L (3.80-5.40) m/uL Hgb 7.2 L (11.4-16.0) gm/dL Hct 21.9 L (34.0-46.0) % RDW 16.4 H (11.5-15.5) % Sodium (137-145) mmol/L Creatinine (0.52-1.04) mg/dL Glucose (74-99) mg/dL POC Glucose (mg/dL) 133 H 144 H (75-99) mg/dL Calcium (8.4-10.2) mg/dL 11/29/16 11/29/16 11/29/16 Range/Units 05:00 07:52 12:13 RBC (3.80-5.40) m/uL Hgb (11.4-16.0) gm/dL Hct (34.0-46.0) % RDW (11.5-15.5) % Sodium 136 L (137-145) mmol/L Creatinine 1.10 H (0.52-1.04) mg/dL Glucose 108 H (74-99) mg/dL POC Glucose (mg/dL) 113 H 170 H (75-99) mg/dL Calcium 8.0 L (8.4-10.2) mg/dL Assessment and Plan Plan: Impression: 1 acute vaginal bleeding with profound anemia secondary to recent hysterectomy, and worsened by the fact that the patient is on anticoagulation therapy. Patient presented with a hemoglobin as low as 6.1, and so far she has required at least 6 units of packed RBCs since admission. Her hemoglobin today is 8.0 2 focal grade 2 noninvasive endometrial carcinoma, status post total abdominal hysterectomy on 11/19/2016. 3 history of thromboembolic disease and hypercoagulable state, however her last thromboembolic episode was 4 years ago, and I took care of the patient at that time. Patient is definitely at a higher risk of being on anticoagulation therapy at this point, and I feel it would be best to hold all anticoagulation therapy until her vaginal bleeding is completely under control, and hopefully in the next few days we can restart the patient on Lovenox. At this point I believe the risks of anticoagulation therapy outweigh the benefits. 4 history of multiple comorbidities including hypertension, diabetes, mild intermittent asthma, and paroxysmal atrial fibrillation. 5 acute kidney injury, most likely acute tubular necrosis secondary to hypotension., Ultrasound showed no evidence of hydronephrosis, hence ureteral injury is unlikely, patient's renal status is back to normal over the last few days. Recommendation: Supportive care measures, patient will be placed on Lovenox 40 mg subcu daily and I would likely increase the dose if tolerated over the next couple of days. She will eventually need to be on Coumadin for her atrial fibrillation, but I'm not certain that she couldn't tolerate Coumadin at this point yet. The risks and benefits of anticoagulation therapy were discussed with the patient and her family at bedside. At this point I feel and the patient feels to be more comfortable with the decision of starting slowly with a small dose of Lovenox, and gradually increase if tolerated. Time with Patient: Less than 30
--- NOTE | 2016-11-29 18:08 | P.PN ---
Subjective This is a pleasant 4H are old lady patient of Dr. Ledesma, she has underlying history of MTHFR mutation, asthma, diabetes mellitus type 2, hypertension and 1 episode of pulmonary emboli 4 years ago. She underwent at total abdominal hysterectomy bilateral salpingo-oophorectomy by Dr. 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 Prior to this she was chronically on Coumadin for the past 4 years until she was bridge for the procedure. Postoperatively she developed low blood pressure reading and EKG shows new onset atrial fibrillation with known history of left bundle branch block managed at selective care unit. She had required amiodarone drip secondary to rapid ventricular rate atrial fibrillation and was seen by cardiology at that time. She had medications that were titrated down including amiodarone, and was discharged to continue on Lovenox at 1 mg/kg every 12 hours with bridging Coumadin dosing. Her INR on discharge was 1.5 She was seen in emergency room secondary to dizziness and lightheadedness. Patient was at bathroom at that time and had a near syncopal event, patient denies any head trauma or musculoskeletal extremity trauma, patient denies any syncope hemoglobin on admission was 6.1 with a prior hemoglobin of 8.4 taken 2 days prior. Baseline hemoglobin was 14.1 November 14. Patient was admitted secondary to symptomatic blood loss anemia 2 units packed red blood cell was ordered with holding of Lovenox and Coumadin, consult with Dr. Suazo and cardiology, INR on admission 1.9 protamine given in the emergency room for Lovenox reversal, Creatinine also was elevated 2.8 from a previous of 1.34 taken 2 days prior to admission, baseline 1.1 11/26: Hemoglobin is 7.7 status post transfusion of 2 units of packed RBCs repeat hemoglobin 6.9. Patient will receive 1 more unit of packed RBCs. INR is 1.41. BUN is 47 creatinine 3.4. Consult added for nephrology and DDAVP has been ordered 1. Metformin discontinued. She has had low urine output and continued vaginal bleeding. He received another fluid bolus with improved urine output. Dr. Suazo has provided vaginal packing and vaginal bleeding is improved. Lovenox is scheduled to be resumed tomorrow. concession stand attendant is a sinus rhythm and cardiology is on consult. Dr. Mckeon has increased her amiodarone and metoprolol is on hold. She is currently on norepinephrine at 15 mics. Patient is reaching 2500 mL on IS. Patient encouraged to increase oral intake. Dr. Suazo has discussed in detail patient's pathology report and no chemotherapy or radiation is necessary. 11/27: Blood pressure is improved. She has been afebrile. This morning's hemoglobin is 7.1 after 5 PM hemoglobin of 6.8. She has now been transfused with 6 units of packed RBCs. BUN at 33 and creatinine 1.8. Blood sugars have been running between 149 and 185. Magnesium has been replaced. PICC line was placed yesterday. But rule out is also on hold. Patient is status post 3 L of fluid and Levophed is currently at 7 and trying to wean off. Patient had packing removed from her vaginal area this morning and had one very large dark clot expressed and now minimal flow. Good urine output. She denies any shortness of breath. 11/28: Hemoglobin is 7.9. Patient is status post 6 units of packed RBCs. BUN 23 and creatinine 1.15. INR is 1.0. She is now having scant amount of vaginal discharge. Dr. Suazo has cleared her for discharge. She is off vasopressors. Patient is clear for transfer out of the intensive care unit. Consult added for Dr. Catalan regarding anticoagulation recommendations. : Patient's doing well, no vaginal bleeding, appetite is good, patient denies any chest pain, she went into atrial fibrillation early last night, and spontaneously went into sinus rhythm this morning, patient has no new issues including leg pain or shortness of breath no cough, but does have been stable off vasopressors. Lovenox 40 mg has been initiated by Dr. Lund, awaiting final recommendation by Dr. Catalan for either Coumadin or factor X a anticoagulation Objective - Vital Signs Vital signs: Vital Signs Temp 98.6 F 11/29/16 16:24 Pulse 67 11/29/16 16:24 Resp 13 11/29/16 16:24 BP 115/50 11/29/16 16:24 Pulse Ox 98 11/29/16 16:24 Intake & Output 11/28/16 11/29/16 11/29/16 18:59 06:59 18:59 Intake Total 930 560 600 Output Total 750 500 500 Balance 180 60 100 Weight 137.5 kg 137.5 kg 137.5 kg Intake: IV 310 0.9 310 Intake, IV Titration 570 Amount Sodium Chloride 0.9% 1, 320 000 ml @ 50 mls/hr IV . Q20H [facility] Rx#:[id number] Sodium Phosphate 10 mmol 250 In Sodium Chloride 0.9% 250 ml @ 125 mls/hr IVPB ONCE ONE Rx#:[id number] Oral 360 250 600 Output: Urine 750 500 500 Other: Voiding Method Toilet Toilet Toilet # Voids 1 1 1 # Bowel Movements 2 1 1 - Constitutional General appearance: Present: cooperative, no acute distress - EENT Eyes: Present: anicteric sclerae, PERRLA, normal appearance ENT: Present: hearing grossly normal, NA/AT, normal oropharynx - Neck Neck: Present: normal ROM. Absent: lymphadenopathy, other, rigidity, stridor, thyromegaly - Respiratory Respiratory: bilateral: CTA, negative: diminished, dullness, rales, rhonchi - Cardiovascular Rhythm: regular Heart sounds: normal: S1, S2 Abnormal Heart Sounds: Absent: systolic murmur, diastolic murmur, rub, S3 Gallop , S4 Gallop, click, other - Gastrointestinal General gastrointestinal: Present: normal bowel sounds, soft - Integumentary Integumentary: Present: normal, normal turgor - Musculoskeletal Musculoskeletal: Present: gait normal, strength equal bilaterally - Labs CBC & Chem 7: 11/29/16 05:00 11/29/16 05:00 Labs: Abnormal Lab Results - Last 24 Hours (Table) 11/28/16 11/29/16 11/29/16 Range/Units 20:13 05:00 05:00 RBC 2.38 L (3.80-5.40) m/uL Hgb 7.2 L (11.4-16.0) gm/dL Hct 21.9 L (34.0-46.0) % RDW 16.4 H (11.5-15.5) % Sodium 136 L (137-145) mmol/L Creatinine 1.10 H (0.52-1.04) mg/dL Glucose 108 H (74-99) mg/dL POC Glucose (mg/dL) 144 H (75-99) mg/dL Calcium 8.0 L (8.4-10.2) mg/dL 11/29/16 11/29/16 Range/Units 07:52 12:13 RBC (3.80-5.40) m/uL Hgb (11.4-16.0) gm/dL Hct (34.0-46.0) % RDW (11.5-15.5) % Sodium (137-145) mmol/L Creatinine (0.52-1.04) mg/dL Glucose (74-99) mg/dL POC Glucose (mg/dL) 113 H 170 H (75-99) mg/dL Calcium (8.4-10.2) mg/dL Assessment and Plan Plan: 1. Acute blood loss anemia due to acute post op vaginal bleeding secondary to unexpected postop complication and effects of Lovenox and Coumadin status post transfusion of 6 units packed red blood cell, Lovenox and Coumadin discontinued. Consult appreciated with Dr. Suazo s/p vaginal packing with improvement of bleeding. Protamine and vitamin K were given. 2. Hypovolemic shock with ATN secondary to acute blood loss anemia. Patient has been on vasopressors and multiple fluid boluses have been provided. Patient is managed in the intensive care unit and followed by Dr. Marroquin for intensive care management. Patient has been stabilized and will be transferred out of intensive care unit. 3. Focal grade 2 noninvasive endometrioid carcinoma status post total abdominal hysterectomy and salpingo-oophorectomy last 11/19/2016. Pathology was reviewed with Dr. Suazo, oncology will be consulted during this admission. No chemotherapy or radiation therapy necessary. 4. MTHFR gene mutation with prior history of pulmonary embolusx1 , she is at risk for postoperative venous thromboembolism. Hold all anticoagulation until bleeding stops. Insult with Dr. Catalan regarding resuming anticoagulation with Lovenox started at 40 mg daily, again dilemma whether Coumadin vs factor X A inhibitors would be preferred as Coumadin INR monitoring can be fluctuating for efficacy, 5. Paroxysmal Atrial fibrillation history, currently on amiodarone tapering dose per her last admission 11/19/2016, cardiology is on consult last echocardiogram 11/22/2016 showed ejection fraction of 40-45% and mild MR and mild TR RV S/P less than 35, normal pericardium, 6. Hypertension with hypotension. With this, near syncope related orthostasis with hemodynamic instability secondary to blood loss anemia along with the use of antihypertensive agents, no ongoing other losses except for postoperative anemia, hold lisinopril 20 mg twice daily, hold Cardizem CD 180 mg daily. Continue metoprolol 12.5 twice a day-hold. Fluid boluses given along with with blood transfusion 7. Diabetes mellitus type II. Metformin placed on hold due to acute kidney injury. 8. Asthma, mild intermittent. Continue albuterol inhaler as needed. 9. VTE prophylaxis. Hold anticoagulation. SLY hose and SCDs. 10. Gastrointestinal prophylaxis, Pepcid. 11. Proximal atrial fibrillation with episodes of A. fib with RVR. Cardiology consult. Oral amiodarone increased , metoprolol tartrate 12.5 mg twice daily- hold, Cardizem CD 180 mg--on hold due to hypotension 12. Acute kidney injury possibly due to hypotension. iv hydration. Consult nephrology. DDAVP x1. Metformin discontinued 13. Mild protein malnutrition, acute electrolyte abnormalities with hypocalcemia, hyperkalemia, I pointed 3 anemia. Elevated CPK Labs monitored monitor for rhabdo and further decompensation Discharge plan: Return home
[2016-11-29 18:20] LABS: Glucose,Whole Blood 97 mg/dL (75-99)
--- NOTE | 2016-11-29 18:32 | P.CONS ---
History of Present Illness - Reason for Consult Consult date: 11/29/16 anticoagulation Requesting physician: Emma Lopes - Chief Complaint near syncopy - History of Present Illness Ms. Frye is a very pleasant female pt who was initially seen by Dr. Cheung 09/08/12, she was seen inpatient after she had unprecipitated bilateral PE. Recommendation at that time was 1 year anticoagulation and hypercoaguable work up was ordered. She was seen in office for results. She has MTHFR mutation, double heterozygous, the 1 year anticoagulation recommendation remained the same with the addition of lifetime 81mg aspirin and 1 month full dose anticoagulation post orthopedic procedures. She was found to have elevated homocystein levels and recommended to be on lifelong folic acid. She last saw Dr. Cheung Jul 2013. She remained on coumadin and has done well. Pt was admitted just over a week ago for COLLINS/BSO for abnormal vaginal bleeding, she bridged lovenox prior to procedure then she was discharged with coumadin and lovenox. At home she had vaginal bleeding and dizziness with near syncopy so, she was brought to ER for evaluation, she had acute blood loss anemia with Hgb 6.9, s/p 6 units of PRBCs, anticoagulation held. She reports no further bleeding today. Review of Systems All systems: negative Constitutional: Reports as per HPI Past Medical History Past Medical History: Asthma, Diabetes Mellitus, Hypertension, Pulmonary Embolus (PE) Additional Past Medical History / Comment(s): MTHFR gene mutation History of Any Multi-Drug Resistant Organisms: None Reported Past Surgical History: Breast Surgery, Section, Hysterectomy, Orthopedic Surgery Additional Past Surgical History / Comment(s): RIGHT ANKLE-PINS AND PLATE breast biopsy Past Anesthesia/Blood Transfusion Reactions: No Reported Reaction Additional Past Anesthesia/Blood Transfusion Reaction / Comm: no hx blood transfusion Past Psychological History: No Psychological Hx Reported Smoking Status: Never smoker Past Alcohol Use History: Rare Additional Past Alcohol Use History / Comment(s): Patient denies any history of smoking, medical marijuana, marijuana, street drug or alcohol use. 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 Past Drug Use History: None Reported - Past Family History Mother Family Medical History: No Reported History Additional Family Medical History / Comment(s): Mother at age 88 from sepsis. Brother(s) Family Medical History: Myocardial Infarction ([place]) Additional Family Medical History / Comment(s): Brother at age 49 from myocardial infarction. Father Additional Family Medical History / Comment(s): Father at age 57 from a myocardial infarction. Sister(s) Additional Family Medical History / Comment(s): He has one sister alive but has never been tested for MTHFR gene mutation. Son(s) Additional Family Medical History / Comment(s): She has 2 sons and 1 daughter with no major medical problems. Medications and Allergies Home Medications Medication Instructions Recorded Confirmed Type Tqoyaacvryfgve-CN-Ftuwvnyrid 1 tab PO HS 09/10/16 11/25/16 History [Folbic] Diltiazem Cd [Cardizem CD] 180 mg PO QAM 09/10/16 11/25/16 History Metoprolol Tartrate [Lopressor] 12.5 mg PO BID 09/10/16 11/25/16 History Warfarin [Coumadin] 2.5 mg PO SUTUTHSA 09/10/16 11/25/16 History Warfarin [Coumadin] 5 mg PO MOWEFR 09/10/16 11/25/16 History metFORMIN HCL [Glucophage] 500 mg PO BID 09/10/16 11/25/16 History Albuterol Inhaler [Ventolin Hfa 1 - 2 puff INHALATION RT-Q6H PRN 09/11/16 History Inhaler] ALPRAZolam [Xanax] 0.25 mg PO TID PRN 09/13/16 11/25/16 History Enoxaparin [Lovenox] 120 mg SQ Q12H MDD FINAL DOSE 11/14/16 11/25/16 History 11/25/2016 Allergies Allergy/AdvReac Type Severity Reaction Status Date / Time No Known Allergies Allergy Verified 11/25/16 12:49 Physical Exam Vitals: Vital Signs Temp Pulse Resp BP Pulse Ox 11/29/16 16:24 98.6 F 67 13 115/50 98 11/29/16 12:00 57 L 20 127/57 11/29/16 11:53 11 L 11/29/16 10:00 98.4 F 75 11 L 111/73 96 11/29/16 08:00 107 H 15 99/51 97 11/29/16 06:00 79 5 L 11/29/16 04:03 94 8 L 115/65 100 11/29/16 04:00 8 L 11/29/16 00:00 98.3 F 93 16 119/55 100 11/28/16 20:07 98.7 F 83 26 H 135/49 98 11/28/16 18:00 71 17 140/57 98 Intake and Output 11/29/16 11/29/16 11/29/16 06:59 14:59 22:59 Intake Total 160 600 Output Total 500 500 Balance -340 100 Intake: IV 110 0.9 110 Oral 50 600 Output: Urine 500 500 Other: Voiding Method Toilet Toilet Toilet # Voids 1 1 # Bowel Movements 1 1 Weight 137.5 kg 137.5 kg Patient Weight 11/30/16 06:59 Weight 137.5 kg - Constitutional General appearance: cooperative, no acute distress, obese - EENT Eyes: anicteric sclerae, EOMI, PERRLA, normal appearance ENT: hearing grossly normal, normal oropharynx - Neck Neck: no lymphadenopathy - Respiratory Respiratory: bilateral: CTA - Cardiovascular Heart sounds: normal: S1, S2 leg Peripheral Edema: bilateral: Trace - Gastrointestinal General gastrointestinal: no absent bowel sounds, no decreased bowel sounds, no distended, no hepatomegaly, no hyperactive bowel sounds, normal bowel sounds, no organomegaly, no rigid, no scaphoid, soft, no splenomegaly, no tenderness, no umbilical hernia, no ventral hernia - Integumentary Integumentary: pale - Neurologic Neurologic: CNII-XII intact - Musculoskeletal Musculoskeletal: strength equal bilaterally - Psychiatric Psychiatric: A&O x's 3, appropriate affect, intact judgment & insight Results CBC & Chem 7: 11/29/16 05:00 11/29/16 05:00 Labs: Abnormal Lab Results - Last 24 Hours (Table) 11/28/16 11/29/16 11/29/16 Range/Units 20:13 05:00 05:00 RBC 2.38 L (3.80-5.40) m/uL Hgb 7.2 L (11.4-16.0) gm/dL Hct 21.9 L (34.0-46.0) % RDW 16.4 H (11.5-15.5) % Sodium 136 L (137-145) mmol/L Creatinine 1.10 H (0.52-1.04) mg/dL Glucose 108 H (74-99) mg/dL POC Glucose (mg/dL) 144 H (75-99) mg/dL Calcium 8.0 L (8.4-10.2) mg/dL 11/29/16 11/29/16 Range/Units 07:52 12:13 RBC (3.80-5.40) m/uL Hgb (11.4-16.0) gm/dL Hct (34.0-46.0) % RDW (11.5-15.5) % Sodium (137-145) mmol/L Creatinine (0.52-1.04) mg/dL Glucose (74-99) mg/dL POC Glucose (mg/dL) 113 H 170 H (75-99) mg/dL Calcium (8.4-10.2) mg/dL Assessment and Plan (1) Acute blood loss anemia Narrative/Plan: Agree with transfusion to keep Hgb >7, daily CBC for monitoring. Status: Acute (2) MTHFR mutation Narrative/Plan: Pt is double heterozygous. Current research no longer validates the MTHFR mutations as having significant impact on coagulation so, post operative anticoagulation for this reason is not evidenced based. Pt has history of unprovoked PE and previously recommendation was for 30 days anticoagulation in a post operative setting. The closer the pt is to surgery the greater the risk of clotting. Pt also has atrial fibrillation requiring lifelong anticoagulation. Recommendation from Dr. Catalan is for heparin drip to therapeutic PTT. He explained to the pt that this is the easiest anticoagulant to reverse in an acute bleed scenario. If her Hgb remains stable and there is no evidence of bleeding then she could be bridged to her coumadin. Prophylactic dose anticoagulation was discussed but is not the recommendation. Pt would like to discuss with her other Doctors and she will make her decision. She is fully aware of the risk of clotting. Status: Chronic
[2016-11-29] MEDS: CYANOCOBALAMIN-FA-PYRIDOXINE 1 EACH TAB PO SCH (20:03)
[2016-11-29 20:04] LABS: Glucose,Whole Blood 139 mg/dL (75-99)
[2016-11-29] MEDS: METOPROLOL TARTRATE 25 MG TAB PO SCH (20:04)
[2016-11-30 05:19] LABS: Calcium 8.2 mg/dL (8.4-10.2); Magnesium 1.9 mg/dL (1.6-2.3); Phosphorous 2.9 mg/dL (2.5-4.5); Potassium 5.1 mmol/L (3.5-5.1)
[2016-11-30 05:43] LABS: Prothrombin Time 10.4 sec (9.0-12.0)
[2016-11-30 06:08] LABS: Basophils % (A) 0 %; CH 29.6; CHCM 31.7; Eosinophils # (A) 0.3 k/uL (0-0.7); Eosinophils % (A) 4 %; HCT 25.2 % (34.0-46.0); HDW 3.01; HGB 7.9 gm/dL (11.4-16.0); Hypochromasia Slight; Luc % (Auto) 1; Lymphocytes # (A) 1.9 k/uL (1.0-4.8); Lymphocytes % (A) 22 %; MCH 29.7 pg (25.0-35.0); MCHC 31.5 g/dL (31.0-37.0); MCV 94.3 fL (80.0-100.0); Mean Platelet Volume 7.1; Monocytes # (A) 0.5 k/uL (0-1.0); Monocytes % (A) 6 %; Neutrophils # (A) 5.6 k/uL (1.3-7.7); Neutrophils % (A) 67 %; RBC 2.67 m/uL (3.80-5.40); RDW 15.9 % (11.5-15.5); WBC 8.4 k/uL (3.8-10.6); WBC (Perox) 8.52
[2016-11-30] MEDS: IPRATROPIUM-ALBUTEROL 3 ML NEB INHALATION SCH ×2 (07:41→10:50)
--- NOTE | 2016-11-30 07:57 | P.PN ---
Subjective Principal diagnosis: Postoperative bleeding, symptomatic anemia, likely secondary to anticoagulation therapy. Slept well. No pain. Scant to no vaginal drainage. No complaints. Objective - Vital Signs Vital signs: Vital Signs Temp 98.3 F 11/30/16 04:00 Pulse 62 11/30/16 04:00 Resp 16 11/30/16 04:00 BP 136/59 11/30/16 04:00 Pulse Ox 98 11/30/16 04:00 Intake & Output 11/29/16 11/30/16 11/30/16 18:59 06:59 18:59 Intake Total 600 350 Output Total 500 750 Balance 100 -400 Weight 137.5 kg 137.5 kg Intake: Oral 600 350 Output: Urine 500 750 Other: Voiding Method Toilet Toilet # Voids 2 1 # Bowel Movements 1 1 - Constitutional General appearance: Present: cooperative, morbidly obese - EENT Eyes: Present: PERRLA ENT: Present: hearing grossly normal - Neck Thyroid: bilateral: normal size - Respiratory Respiratory: bilateral: CTA - Cardiovascular Rhythm: regular - Gastrointestinal General gastrointestinal: Present: normal bowel sounds - Genitourinary Genitourinary Comment(s): Incision clean and dry, intact, no drainage or redness. - Integumentary Integumentary: Present: normal - Neurologic Neurologic: Present: CNII-XII intact - Musculoskeletal Musculoskeletal: Present: gait normal, strength equal bilaterally - Psychiatric Psychiatric: Present: A&O x's 3, appropriate affect, intact judgment & insight - Labs CBC & Chem 7: 11/30/16 06:00 11/30/16 04:45 Labs: Abnormal Lab Results - Last 24 Hours (Table) 11/29/16 11/29/16 11/30/16 Range/Units 12:13 20:03 04:45 RBC (3.80-5.40) m/uL Hgb (11.4-16.0) gm/dL Hct (34.0-46.0) % RDW (11.5-15.5) % Sodium 136 L (137-145) mmol/L Chloride 108 H (98-107) mmol/L Creatinine 1.12 H (0.52-1.04) mg/dL Glucose 106 H (74-99) mg/dL POC Glucose (mg/dL) 170 H 139 H (75-99) mg/dL Calcium 8.2 L (8.4-10.2) mg/dL 11/30/16 Range/Units 06:00 RBC 2.67 L (3.80-5.40) m/uL Hgb 7.9 L (11.4-16.0) gm/dL Hct 25.2 L (34.0-46.0) % RDW 15.9 H (11.5-15.5) % Sodium (137-145) mmol/L Chloride (98-107) mmol/L Creatinine (0.52-1.04) mg/dL Glucose (74-99) mg/dL POC Glucose (mg/dL) (75-99) mg/dL Calcium (8.4-10.2) mg/dL Assessment and Plan Plan: Discharge home today per medical team. Follow-up with me in the office in 1 week for postoperative check. Time with Patient: Less than 30
[2016-11-30] MEDS: metFORMIN 500 MG TAB PO SCH (08:43)
[2016-11-30] MEDS: PANTOPRAZOLE 40 MG TABLET PO SCH (08:44)
[2016-11-30] MEDS: ENOXAPARIN 40 MG/0.4 ML SYRINGE SQ SCH (08:44)
[2016-11-30] MEDS: AMIODARONE 200 MG TAB PO SCH (08:44)
[2016-11-30] MEDS: DOCUSATE 100 MG CAP PO SCH (08:45)
[2016-11-30] MEDS: METOPROLOL TARTRATE 25 MG TAB PO SCH (08:45)
[2016-11-30] MEDS: SODIUM CHLORIDE 0.9% 1,000 ML IV SCH (08:46)
[2016-11-30] MEDS: INSULIN LISPRO (humaLOG) 300 UNIT/3 ML VIAL SQ SCH ×2 (08:48→12:07)
[2016-11-30 08:49] LABS: Glucose,Whole Blood 131 mg/dL (75-99)
[2016-11-30 09:19] VITALS: BMI 55.4
--- NOTE | 2016-11-30 09:59 | PN ---
Patient is seen for followup for acute kidney injury secondary to ATN, hypotension, hypoperfusion. Her serum creatinine has improved to 1.12 from 3.4 mg/dL at peak. She was hypotensive with severe anemia secondary to bleeding after hysterectomy. Her hemoglobin has been staying now at about 7.9 g/dL. She is off of pressors. She is off of IV fluids. She is in overflow for selective care, and perhaps will be going home today. On examination, blood pressure is 117/52, heart rate 73 per minute. She is afebrile. Examination of the heart, S1 and S2. Examination of the lungs, bilateral breath sounds are heard. Abdomen is soft, obese. Examination of the lower extremities shows edema 2+ bilaterally. Labs show sodium 136, potassium 5.1, BUN 16, serum creatinine 1.12. Hemoglobin 7.9 g/dL. ASSESSMENT: 1. Acute kidney injury, acute tubular necrosis, currently significantly improved. Etiology was hypotension, hypoperfusion. 2. Anemia, which was mainly post hemorrhagic, currently improved. Patient has had about 3 to 4 units of packed RBCs transfusion. 3. Status post hysterectomy. 4. Atrial fibrillation, currently maintained on amiodarone. She is maintained on Lovenox as well. PLAN: Follow up as outpatient in about 1 to 2 weeks' time. Hold off on diuretics for now unless edema and does not improve as outpatient.
--- NOTE | 2016-11-30 10:46 | P.PN ---
Subjective Principal diagnosis: Paroxysmal A. fib This is a pleasant 66-year-old female patient who just underwent hysterectomy about a week ago presented back to the hospital complaining of dizziness and lightheadedness. The patient is known to have hypercoagulopathy and she was taking Coumadin as an outpatient. She just underwent hysterectomy about a week ago. She was discharged home on Coumadin and Lovenox for bridging. Over the last 2 days she has been experiencing vagina bleeding. She started feeling dizzy and lightheaded and she came in to the emergency room where she was found to be severely anemic. She received 3 units of packed RBC. The Coumadin and Lovenox were stopped. She denies having any chest pain or discomfort or difficulty breathing or heart racing or fluttering. She is known to have paroxysmal atrial fibrillation and she had A. fib after the hysterectomy but currently she is in normal sinus mechanism. The patient has been maintaining normal sinus mechanism during ICU stay but last night she went into an A. fib. Currently she is in A. fib with slightly uncontrolled heart rate. Heart rate has been between 100 to 110 beats per minutes. She is going to start on Lovenox as well as for anticoagulation. The heart rate has improved after increase the dose of metoprolol yesterday. The patient is going to be discharged home. She is going to be discharged on Lovenox. Objective - Vital Signs Vital signs: Vital Signs Temp 98.4 F 11/30/16 08:00 Pulse 73 11/30/16 08:00 Resp 17 11/30/16 08:00 BP 117/52 11/30/16 08:00 Pulse Ox 97 11/30/16 08:00 Intake & Output 11/29/16 11/30/16 11/30/16 18:59 06:59 18:59 Intake Total 600 350 Output Total 500 750 250 Balance 100 -400 -250 Weight 137.5 kg 137.5 kg 137.5 kg Intake: Oral 600 350 Output: Urine 500 750 250 Other: Voiding Method Toilet Toilet Toilet # Voids 2 1 # Bowel Movements 1 1 1 - Constitutional General appearance: Present: no acute distress - Respiratory Respiratory: bilateral: CTA - Cardiovascular Rhythm: regular Heart sounds: normal: S1, S2 - Labs CBC & Chem 7: 11/30/16 06:00 11/30/16 04:45 Labs: Abnormal Lab Results - Last 24 Hours (Table) 11/29/16 11/29/16 11/30/16 Range/Units 12:13 20:03 04:45 RBC (3.80-5.40) m/uL Hgb (11.4-16.0) gm/dL Hct (34.0-46.0) % RDW (11.5-15.5) % Sodium 136 L (137-145) mmol/L Chloride 108 H (98-107) mmol/L Creatinine 1.12 H (0.52-1.04) mg/dL Glucose 106 H (74-99) mg/dL POC Glucose (mg/dL) 170 H 139 H (75-99) mg/dL Calcium 8.2 L (8.4-10.2) mg/dL 11/30/16 11/30/16 Range/Units 06:00 08:47 RBC 2.67 L (3.80-5.40) m/uL Hgb 7.9 L (11.4-16.0) gm/dL Hct 25.2 L (34.0-46.0) % RDW 15.9 H (11.5-15.5) % Sodium (137-145) mmol/L Chloride (98-107) mmol/L Creatinine (0.52-1.04) mg/dL Glucose (74-99) mg/dL POC Glucose (mg/dL) 131 H (75-99) mg/dL Calcium (8.4-10.2) mg/dL Assessment and Plan Plan: Assessment Vagina bleeding Anemia secondary to the above Acute on chronic renal failure Paroxysmal atrial fibrillation Multiple comorbid conditions Plan Monitor the hemoglobin The patient converted to sinus rhythm Follow-up with the patient
[2016-11-30 11:50] LABS: Glucose,Whole Blood 121 mg/dL (75-99)
[2016-11-30 12:01] VITALS: BP 136/71; PULSE 57; RESP 18; TEMP 98.5
--- NOTE | 2016-11-30 12:36 | P.DS ---
Providers Date of admission: 11/25/16 13:49 Expected date of discharge: 11/30/16 Attending physician: Sasha Reed Consults: 11/25/16 22:53 Consult Physician Stat Consulting Provider: Ysabel Marroquin Consult Reason/Comments: ICU management Do you want consulting provider notified?: Yes 11/26/16 08:17 Consult Physician Routine Consulting Provider: Keith Novoa Consult Reason/Comments: BRUNA Do you want consulting provider notified?: Yes 11/26/16 08:32 Consult Physician Stat Consulting Provider: Susan Osorio Consult Reason/Comments: elevated creatinine Do you want consulting provider notified?: Yes 11/28/16 12:14 Consult Physician Routine Consulting Provider: Zachary Catalan Consult Reason/Comments: Anticoagulation Do you want consulting provider notified?: Yes Primary care physician: [facility] Course: This is a pleasant 4H are old lady patient of Dr. Ledesma, she has underlying history of MTHFR mutation, asthma, diabetes mellitus type 2, hypertension and 1 episode of pulmonary emboli 4 years ago. She underwent at total abdominal hysterectomy bilateral salpingo-oophorectomy by Dr. 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 Prior to this she was chronically on Coumadin for the past 4 years until she was bridge for the procedure. Postoperatively she developed low blood pressure reading and EKG shows new onset atrial fibrillation with known history of left bundle branch block managed at selective care unit. She had required amiodarone drip secondary to rapid ventricular rate atrial fibrillation and was seen by cardiology at that time. She had medications that were titrated down including amiodarone, and was discharged to continue on Lovenox at 1 mg/kg every 12 hours with bridging Coumadin dosing. Her INR on discharge was 1.5 She was seen in emergency room secondary to dizziness and lightheadedness. Patient was at bathroom at that time and had a near syncopal event, patient denies any head trauma or musculoskeletal extremity trauma, patient denies any syncope hemoglobin on admission was 6.1 with a prior hemoglobin of 8.4 taken 2 days prior. Baseline hemoglobin was 14.1 November 14. Patient was admitted secondary to symptomatic blood loss anemia 2 units packed red blood cell was ordered with holding of Lovenox and Coumadin, consult with Dr. Suazo and cardiology, INR on admission 1.9 protamine given in the emergency room for Lovenox reversal, Creatinine also was elevated 2.8 from a previous of 1.34 taken 2 days prior to admission, baseline 1.1 11/26: Hemoglobin is 7.7 status post transfusion of 2 units of packed RBCs repeat hemoglobin 6.9. Patient will receive 1 more unit of packed RBCs. INR is 1.41. BUN is 47 creatinine 3.4. Consult added for nephrology and DDAVP has been ordered 1. Metformin discontinued. She has had low urine output and continued vaginal bleeding. He received another fluid bolus with improved urine output. Dr. Suazo has provided vaginal packing and vaginal bleeding is improved. Lovenox is scheduled to be resumed tomorrow. sales operations lead is a sinus rhythm and cardiology is on consult. Dr. Mckeon has increased her amiodarone and metoprolol is on hold. She is currently on norepinephrine at 15 mics. Patient is reaching 2500 mL on IS. Patient encouraged to increase oral intake. Dr. Suazo has discussed in detail patient's pathology report and no chemotherapy or radiation is necessary. 11/27: Blood pressure is improved. She has been afebrile. This morning's hemoglobin is 7.1 after 5 PM hemoglobin of 6.8. She has now been transfused with 6 units of packed RBCs. BUN at 33 and creatinine 1.8. Blood sugars have been running between 149 and 185. Magnesium has been replaced. PICC line was placed yesterday. But rule out is also on hold. Patient is status post 3 L of fluid and Levophed is currently at 7 and trying to wean off. Patient had packing removed from her vaginal area this morning and had one very large dark clot expressed and now minimal flow. Good urine output. She denies any shortness of breath. 11/28: Hemoglobin is 7.9. Patient is status post 6 units of packed RBCs. BUN 23 and creatinine 1.15. INR is 1.0. She is now having scant amount of vaginal discharge. Dr. Suazo has cleared her for discharge. She is off vasopressors. Patient is clear for transfer out of the intensive care unit. Consult added for Dr. Catalan regarding anticoagulation recommendations. 11/29: Patient's doing well, no vaginal bleeding, appetite is good, patient denies any chest pain, she went into atrial fibrillation early last night, and spontaneously went into sinus rhythm this morning, patient has no new issues including leg pain or shortness of breath no cough, but does have been stable off vasopressors. Lovenox 40 mg has been initiated by Dr. Marroquin, awaiting final recommendation by Dr. Catalan for either Coumadin or factor X a anticoagulation 11/30: Patient is currently in a sinus rhythm running in the 60s and 70s. He has had no further vaginal bleeding. Hemoglobin 7.9. Dr. Marroquin has recommended Lovenox 40 mg twice daily and prescription sent to her pharmacy. Patient will be off Cardizem and metoprolol was increased. Amiodarone dose clarified by cardiology to 400 mg twice daily and they will decrease at patient's office visit. She will be discharged home today in stable condition and she will hold Coumadin until seen by Dr. Cheung. Discharge diagnoses: 1. Acute blood loss anemia due to acute post op vaginal bleeding secondary to unexpected postop complication and effects of Lovenox and Coumadin status post transfusion of 6 units packed red blood cell 2. Hypovolemic shock secondary to acute blood loss anemia 3. Focal grade 2 noninvasive endometrioid carcinoma status post total abdominal hysterectomy and salpingo-oophorectomy last 11/19/2016. 4. MTHFR gene mutation with prior history of pulmonary embolusx1 5. Paroxysmal Atrial fibrillation history with episodes of A. fib with RVR 6. Hypertension with hypotension 7. Diabetes mellitus type II. 8. Asthma, mild intermittent. 9. Acute kidney injury with acute tubular necrosis. 10. Mild protein malnutrition 11. Acute electrolyte abnormalities with hypocalcemia, hyperkalemia, Discharge plan: Return home Impression and plan of care have been directed as dictated by the signing physician. Emma Lopes nurse practitioner acting as scribe for signing physician. Patient Condition at Discharge: Good Plan - Discharge Summary New Discharge Prescriptions: Amiodarone [Cordarone] 400 mg PO BID #60 tab Enoxaparin [Lovenox] 40 mg SQ Q12HR #14 syringe Metoprolol Tartrate [Lopressor] 25 mg PO BID #60 tab Discharge Medication List [id number] [Folbic] 1 tab PO HS 09/10/16 [History] Warfarin [Coumadin] 2.5 mg PO SUTUTHSA 09/10/16 [History] Warfarin [Coumadin] 5 mg PO MOWEFR 09/10/16 [History] metFORMIN HCL [Glucophage] 500 mg PO BID 09/10/16 [History] Albuterol Inhaler [Ventolin Hfa Inhaler] 1 - 2 puff INHALATION RT-Q6H PRN [History] ALPRAZolam [Xanax] 0.25 mg PO TID PRN 09/13/16 [History] Acetaminophen-Codeine 300-30mg [Tylenol w/codeine #3] 1 tab PO Q4H PRN #2 tablet 11/23/16 [Rx] Amiodarone [Cordarone] 400 mg PO BID #60 tab 11/30/16 [Rx] Enoxaparin [Lovenox] 40 mg SQ Q12HR #14 syringe 11/30/16 [Rx] Metoprolol Tartrate [Lopressor] 25 mg PO BID #60 tab 11/30/16 [Rx] Follow up Appointment(s)/Referral(s): Susan Osorio MD [STAFF PHYSICIAN] - 1 Week (Office to call patient with appointment. ) Jose Raul Mckeon MD [STAFF PHYSICIAN] - 12/07/16 4:00 pm Andrei Ledesma MD [Primary Care Provider] - 12/05/16 10:30 am (To be seen with Nurse Practitioner-Laura. ) Sravani Suazo MD [STAFF PHYSICIAN] - 1 Week (Called and left messageor the office to call the patient to make an appointment. Office would not answer. ) Ryley Cheung MD [STAFF PHYSICIAN] - 12/18/16 4:30 pm Patient Instructions/Handouts: Surgical Site Infections (DC), Hypercoagulation (DC), Hysterectomy (DC) Activity/Diet/Wound Care/Special Instructions: Hold Coumadin until seen by Dr Cheung Continue new dose of amiodarone 400 mg twice daily until seen by cardiology in the office. Discharge Disposition: HOME SELF-CARE
--- NOTE | 2016-11-30 13:28 | P.PN ---
Subjective Principal diagnosis: Acute vaginal bleeding, recent hysterectomy, This is a 66-year-old female with history of hypercoagulable state, history of pulmonary embolism 2, her last thromboembolic episode was 4 years ago. History of chronic atrial fibrillation, type 2 diabetes, hypertension, and MT HFR gene mutation. Patient presented about a week ago and she underwent vaginal hysterectomy which converted to total abdominal hysterectomy and bilateral salpingo oophorectomy for complex endometrial hyperplasia and atypia her surgery went quite well, however she developed postoperative atrial fibrillation and this was managed by cardiology on selective. Patient was eventually placed on amiodarone, and she was discharged home about 2 days ago. Patient went back on Lovenox 120 mg twice a day as well as Coumadin orally. However on 11/25/2016, patient presented to the ER with increased vaginal bleeding for about 12 hours with passage of blood clots. She had a syncopal episode at home, but did not fall. Her hemoglobin was as low as 6.1, and her platelets were 2 91,000. Her INR yesterday was 1.9, and today is 1.3. Patient also developed worsening renal failure, creatinine on admission was 2.82 and it is 3.40 today. I believe the patient must have sustained acute tubular necrosis secondary to hypotension secondary to profound anemia. Ultrasound of the kidneys is pending, and renal consultation is also pending. No evidence of hydronephrosis was noted on the ultrasound. Considering her presentation of profound anemia and bleeding, considering her history of thromboembolic disease and hypercoagulable state, I was asked to see this patient on consultation. Presently there is no clinical history to suggest thromboembolic disease, but of course the patient is relatively high risk for thromboembolic disease. At this point I recommended we stop all anticoagulation therapy, until the bleeding is fully controlled, and hopefully in the next 5-7 days, she could be restarted back on relatively low dose of Lovenox. Holding anticoagulation therapy is very appropriate, and the benefits at this point outweigh the risks. Patient was made aware of this decision, and if she develops any thromboembolic disease, patient will need to have a Sami filter placement. Patient was reevaluated today on 11/27/2016, she received a total of 6 units of packed RBCs so far. Her hemoglobin today after unit #6 is 8.0. And she seems to be hemodynamically stable. Patient was on sodium bicarb drip until early this morning which I have discontinued. And her bicarb level is 21. No evidence of anion gap noted. BUN is 33 creatinine is 1.80. Patient denies any shortness of breath no cough no wheezing, she had some old blood clots removed today by Dr. suazo when the vaginal packing was taken out. Patient was reevaluated on 11/28/2016, no more blood was transfused since the last 6 units was given. Her hemoglobin seems to be stabilizing, no active bleeding is noted, patient remains off anticoagulation therapy. Her renal profile is improving, hemodynamically the patient is stable, and I have plans to transfer the patient out of the ICU today for further follow-up on a cardiac floor. Labs were reviewed hemoglobin is 7.9. Basic metabolic profile is normal renal profile showed a BUN of 23 creatinine of 1.15. On 11/29/2016, patient seems to be doing better, no evidence of active bleeding, hemoglobin is 7.2, it was 7.9 yesterday, but clinically no bleeding. I believe the low hemoglobin is probably dilutional and related to blood draws over the last 24 hours. At any rate patient is hemodynamically stable, she developed an episode of atrial fibrillation being addressed by cardiology, and I still believe the patient is not quite ready to go back on Coumadin at this point, I will recommend a small dose of Lovenox 40 mg subcu daily, this will be increased as we go along, as long as the patient does not develop any vaginal bleeding again. Patient is still in the intensive care unit, but she is basically a selective overflow. All her labs were reviewed, renal profile is back to baseline. Reevaluated on 11/30/2016, no evidence of active bleeding, patient is now on Lovenox 40 mg subcu daily, and I plan to increase the dose to 40 mg subcu every 12 hours. Her hemoglobin today is 7.9, and no blood transfusion over the last few days. Patient could possibly be discharged home today, I discussed her condition with Dr. Suazo, and I also discussed her condition with the haz tech yesterday. I feel at this point that 40 mg of Lovenox subcu every 12 hours is actually good for the next couple of weeks, and later on she could have follow-up with the haz tech/Dr. Cheung and he will decide as to what other medications to be added or possibly increased the dose of Lovenox. Today the patient denies any cough no wheezing no shortness of breath, no abdominal pain no nausea no vomiting. Objective - Vital Signs Vital signs: Vital Signs Temp 98.5 F 11/30/16 12:00 Pulse 57 L 11/30/16 12:00 Resp 18 11/30/16 12:00 BP 136/71 11/30/16 12:00 Pulse Ox 97 11/30/16 12:00 Intake & Output 11/29/16 11/30/16 11/30/16 18:59 06:59 18:59 Intake Total 600 350 Output Total 500 750 250 Balance 100 -400 -250 Weight 137.5 kg 137.5 kg 137.5 kg Intake: Oral 600 350 Output: Urine 500 750 250 Other: Voiding Method Toilet Toilet Toilet # Voids 2 1 # Bowel Movements 1 1 1 - Exam Physical Exam: Revealed a 66-year-old female in no distress. Looks slightly pale. HEENT:[Neck is supple.] [No neck masses.] [No thyromegaly.] [No JVD.] Chest: [Clear throughout, no crackles, no rhonchi, no wheezes.] Cardiac Exam: [Normal S1 and S2, no S3 gallop, no murmur.] Abdomen: [Soft, nontender, no megaly, no rebound, no guarding, normal bowel sounds.] Extremities: [No clubbing, no edema, no cyanosis.] Neurological Exam: [No focal neurologic deficit.] - Labs CBC & Chem 7: 11/30/16 06:00 11/30/16 04:45 Labs: Abnormal Lab Results - Last 24 Hours (Table) 11/29/16 11/30/16 11/30/16 Range/Units 20:03 04:45 06:00 RBC 2.67 L (3.80-5.40) m/uL Hgb 7.9 L (11.4-16.0) gm/dL Hct 25.2 L (34.0-46.0) % RDW 15.9 H (11.5-15.5) % Sodium 136 L (137-145) mmol/L Chloride 108 H (98-107) mmol/L Creatinine 1.12 H (0.52-1.04) mg/dL Glucose 106 H (74-99) mg/dL POC Glucose (mg/dL) 139 H (75-99) mg/dL Calcium 8.2 L (8.4-10.2) mg/dL 11/30/16 11/30/16 Range/Units 08:47 11:48 RBC (3.80-5.40) m/uL Hgb (11.4-16.0) gm/dL Hct (34.0-46.0) % RDW (11.5-15.5) % Sodium (137-145) mmol/L Chloride (98-107) mmol/L Creatinine (0.52-1.04) mg/dL Glucose (74-99) mg/dL POC Glucose (mg/dL) 131 H 121 H (75-99) mg/dL Calcium (8.4-10.2) mg/dL Assessment and Plan Plan: Impression: 1 acute vaginal bleeding with profound anemia secondary to recent hysterectomy, and worsened by the fact that the patient is on anticoagulation therapy. Patient presented with a hemoglobin as low as 6.1, and so far she has required at least 6 units of packed RBCs since admission. Her hemoglobin today is 8.0 2 focal grade 2 noninvasive endometrial carcinoma, status post total abdominal hysterectomy on 11/19/2016. 3 history of thromboembolic disease and hypercoagulable state, however her last thromboembolic episode was 4 years ago, and I took care of the patient at that time. Patient is definitely at a higher risk of being on anticoagulation therapy at this point, and I feel it would be best to hold all anticoagulation therapy until her vaginal bleeding is completely under control, and hopefully in the next few days we can restart the patient on Lovenox. At this point I believe the risks of anticoagulation therapy outweigh the benefits. 4 history of multiple comorbidities including hypertension, diabetes, mild intermittent asthma, and paroxysmal atrial fibrillation. 5 acute kidney injury, most likely acute tubular necrosis secondary to hypotension., Ultrasound showed no evidence of hydronephrosis, hence ureteral injury is unlikely, patient's renal status is back to normal over the last few days. Recommendation: I agree and I will recommend discharge planning today, I still believe the patient should be on Lovenox 40 mg subcu every 12 hours for the time being, and later on when she has follow-up with the haz tech, dose or medication could be adjusted accordingly. I recommend that she has not received high doses of anticoagulation at least for the next few weeks after her surgery. Later on dose could be adjusted accordingly. Patient can see me in the office for follow-up in the next couple of weeks. Time with Patient: Less than 30
[2016-11-30] MEDS ORDERED: ENOXAPARIN 40 MG/0.4 ML SYRINGE SQ SCH (21:00)
== END 2016-11-30 14:21 | disposition home or self-care (01) | DRG 919 ==
LOC: EC 11:11 → 6SEL 13:49 → 6ICU 23:16
PROVIDERS: ADMIT Family Medicine; ATTEND Family Medicine
PROC: 30233N1 Transfusion of Nonautologous Red Blood Cells into Peripheral Vein, Percutaneous Approach (ICD-10-PCS; 2016-11-25)
PROC: 02HV33Z Insertion of Infusion Device into Superior Vena Cava, Percutaneous Approach (ICD-10-PCS; principal; 2016-11-26 13:30)
PROC: 30243N1 Transfusion of Nonautologous Red Blood Cells into Central Vein, Percutaneous Approach (ICD-10-PCS; 2016-11-26 13:30)
DX: N99.820 Postprocedural hemorrhage of a genitourinary system organ or structure following a genitourinary system procedure (principal); N17.0 Acute kidney failure with tubular necrosis; R57.1 Hypovolemic shock; E87.2 Acidosis; I95.9 Hypotension, unspecified; I48.0 Paroxysmal atrial fibrillation; E11.22 Type 2 diabetes mellitus with diabetic chronic kidney disease; E72.12 Methylenetetrahydrofolate reductase deficiency; I48.2 Chronic atrial fibrillation; E44.1 Mild protein-calorie malnutrition; Z68.43 Body mass index [BMI] 50.0-59.9, adult; D62 Acute posthemorrhagic anemia; C54.1 Malignant neoplasm of endometrium; E61.1 Iron deficiency; T45.515A Adverse effect of anticoagulants, initial encounter; E83.51 Hypocalcemia; I10 Essential (primary) hypertension; E87.5 Hyperkalemia; R60.9 Edema, unspecified; R53.1 Weakness; N93.9 Abnormal uterine and vaginal bleeding, unspecified; I08.1 Rheumatic disorders of both mitral and tricuspid valves; E83.39 Other disorders of phosphorus metabolism; I44.7 Left bundle-branch block, unspecified; E66.01 Morbid (severe) obesity due to excess calories; J45.20 Mild intermittent asthma, uncomplicated; Z90.710 Acquired absence of both cervix and uterus; Z86.711 Personal history of pulmonary embolism; Z82.49 Family history of ischemic heart disease and other diseases of the circulatory system; Z79.01 Long term (current) use of anticoagulants; Z79.84 Long term (current) use of oral hypoglycemic drugs; Z79.899 Other long term (current) drug therapy; Z87.891 Personal history of nicotine dependence; Z71.3 Dietary counseling and surveillance; Z90.722 Acquired absence of ovaries, bilateral; Z90.79 Acquired absence of other genital organ(s)
CPT/HCPCS: 36415; 36569; 76770; 76937; 77001; 80048; 80053; 81001; 82550; 82553; 82728; 83036; 83540; 83550; 83605; 83735; 83880; 84100; 84484; 85025; 85027; 85610; 85730; 86850; 86900; 86901; 86920; 87086; 93005; 94640; 94760

== ENCOUNTER → 2017-06-14 | Outpatient (CLI) | payer MEDICARE, OTHER ==
--- NOTE | 2017-06-14 11:19 | MM ---
Reason for exam: follow-up at short interval from prior study. Last mammogram was performed 7 months ago. History: Patient is postmenopausal and has history of other cancer at age 66. Benign MG stereo VAD BX RT of the right breast, November 13, 2016. Physical Findings: Nurse did not find any significant physical abnormalities on exam. MG 3D Diag Mammo W/Cad RT CC, MLO, and ML view(s) were taken of the right breast. Prior study comparison: November 09, 2016, right breast MG 3d work up w/cad RT. November 05, 2016, bilateral MG 3d screening mammo w/cad. The breast tissue is almost entirely fat. Finding: There is a 6 mm high density mass in the right breast consistent with previous biopsy. Previous mammotome biopsy in the right breast. There is a chronic nodularity in the right breast. These results were verbally communicated with the patient and result sheet given to the patient on 06/14/17. ASSESSMENT: Benign, BI-RAD 2 RECOMMENDATION: Follow-up diagnostic mammogram of both breasts in 6 months. Back on schedule.
== END | disposition home or self-care (01) ==
LOC: RADMAMWWP 10:08
PROVIDERS: ATTEND Surgery
DX: R92.8 Other abnormal and inconclusive findings on diagnostic imaging of breast (principal)
CPT/HCPCS: G0206; G0279

== ENCOUNTER → 2017-09-16 | Outpatient (CLI) | payer MEDICARE, OTHER ==
--- NOTE | 2017-09-16 12:48 | XR ---
EXAMINATION TYPE: XR knee complete LT DATE OF EXAM: 09/16/2017 COMPARISON: NONE HISTORY: Pain TECHNIQUE: Four views are submitted. FINDINGS: There is severe narrowing of the medial compartment knee joint and patellofemoral joint with hypertro phic spurring. Soft tissue edema and small amount of fluid in the supine patella bursa noted. No acute fracture or dislocation. IMPRESSION: 1. Severe osteoarthritis. No diagnostic evidence of acute fracture or dislocation.
== END | disposition home or self-care (01) ==
LOC: RADXRMAIN 12:18
PROVIDERS: ATTEND Internal Medicine Geriatric Medicine
DX: M17.12 Unilateral primary osteoarthritis, left knee (principal)

== ENCOUNTER → 2018-10-29 | Outpatient (CLI) | payer MEDICARE, OTHER ==
--- NOTE | 2018-10-29 12:03 | MM ---
Reason for exam: additional evaluation requested from prior study. Last mammogram was performed 1 year and 5 months ago. History: Patient is postmenopausal and has history of endometrial cancer at age 66. Benign MG stereo VAD BX RT of the right breast, November 13, 2016. Physical Findings: Nurse did not find any significant physical abnormalities on exam. MG 3D Diag Mammo W/Cad AJIT Bilateral CC and MLO view(s) were taken. XCCL view(s) were taken of the left breast. Prior study comparison: June 14, 2017, right breast MG 3d diag mammo w/cad RT. November 09, 2016, right breast MG 3d work up w/cad RT. There are scattered fibroglandular densities. Benign appearing bilateral calcifications. There is chronic nodularity bilaterally. Post surgical change right breast. These results were verbally communicated with the patient and result sheet given to the patient on 10/29/18. ASSESSMENT: Benign, BI-RAD 2 RECOMMENDATION: Routine screening mammogram of both breasts in 1 year. Manage patient on a clinical basis.
== END | disposition home or self-care (01) ==
LOC: RADBDWWP 10:55
PROVIDERS: ATTEND Internal Medicine Geriatric Medicine
DX: R92.8 Other abnormal and inconclusive findings on diagnostic imaging of breast (principal)
CPT/HCPCS: 77066; G0279; 77062

== ENCOUNTER → 2018-10-29 | Outpatient (CLI) | payer MEDICARE, OTHER ==
--- NOTE | 2018-10-30 07:52 | BD ---
EXAMINATION TYPE: Axial Bone Density DATE OF EXAM: 10/29/2018 COMPARISON: DEXA bone scan from 2014. CLINICAL HISTORY: Postmenopausal female with age related osteoporosis. Height: 62 Weight: 302.6 FRAX RISK QUESTIONS: Alcohol (3 or more units per day): no Family History (Parent hip fracture): no Glucocorticoids (More than 3mos): no (Ex: prednisone, prednisolone, methylprednisolone, dexamethasone, and hydrocortisone). History of Fracture in Adulthood: yes Secondary Osteoporosis: 1. Type 1 Diabetes: no 2. Hyperthyroidism: no 3. Menopause before 45: no 4. Malnutrition: no 5. Chronic liver disease: no Rheumatoid Arthritis: no Current Tobacco Use: no RISK FACTORS HISTORY OF: Family History of Osteoporosis: no Active: no Diet low in dairy products/other sources of calcium: no Postmenopausal woman: age 58 Lost more than 2 inches in height since high school: no MEDICATIONS: metformin, warfarin, metoprolol, water pill Additional History: EXAM MEASUREMENTS: Bone mineral densitometry was performed using the [facility]. Bone mineral density as measured about the Lumbar spine is: ----- L1-L4(G/cm2): 1.180 T Score Values are as follows: ----- L2: 0.7 ----- L3: 0.1 ----- L4: -0.8 ----- L1-L4: 0.0 Bone mineral density has: decreased -0.2 % since study of: 06.04.2014 Bone mineral density about the R hip (g/cm2): 0.872 Bone mineral density about the L hip (g/cm2): 0.741 T Score values are as follows: -----R Neck: -1.2 -----L Neck: -2.1 -----R Total: -0.8 -----L Total: -1.6 Bone mineral density has: decreased -9.3 % since study of: 06.04.2014 IMPRESSION: Osteopenia (T Score between -2.5 and -1) at the femoral neck level in both hips is now present. Bone density is decreased or diminished from prior. There remains slightly increased risk of fracture and the patient may be considered for treatment. Re-Screen 2-5 years. NOTE: T-SCORE=SD OF THE YOUNG ADULT MEAN.
== END ==
LOC: RADBDWWP 11:47
PROVIDERS: ATTEND Internal Medicine Geriatric Medicine
DX: M85.851 Other specified disorders of bone density and structure, right thigh (principal); M85.852 Other specified disorders of bone density and structure, left thigh
CPT/HCPCS: 77080

== ENCOUNTER → 2018-12-04 | Outpatient (CLI) | payer MEDICARE, OTHER ==
--- NOTE | 2018-12-04 11:44 | US ---
EXAMINATION TYPE: US kidneys/renal and bladder DATE OF EXAM: 12/04/2018 COMPARISON: 11/26/2016 CLINICAL HISTORY: N18.3 CKD. CKD EXAM MEASUREMENTS: Right Kidney: 10.6 x 4.4 x 5.2 cm Left Kidney: 10.8 x 5.1 x 4.8 cm Large pt body habitus Right Kidney: Perinephric fat as seen on previous exam, Small hypoechoic nodule lateral= 1.0 x 0.7 x 1.0 cm Left Kidney: No abnormality appreciated Bladder: Difficult to visualize due to large body habitus Bilateral Jets seen: No Incidental finding, gallstones IMPRESSION: 1. Hypoechoic nodule right kidney too small to characterize. No hydronephrosis or nephrolithiasis. 2. Incidental note made of gallstones.
== END ==
LOC: RADUSMAIN 08:20
PROVIDERS: ATTEND Internal Medicine Nephrology
DX: R93.421 Abnormal radiologic findings on diagnostic imaging of right kidney (principal); N18.3 Chronic kidney disease, stage 3 (moderate)
CPT/HCPCS: 76770

== ENCOUNTER → 2018-12-18 | Outpatient (CLI) | payer MEDICARE, OTHER ==
[2018-12-18 10:50] VITALS: BP 95/67; PULSE 65; RESP 18; TEMP 98.3; BMI 52.9
--- NOTE | 2018-12-18 11:31 | P.GSHP ---
History of Present Illness H&P Date: 12/18/18 Chief Complaint: fibrocystic breast disease Brie is a 68-year-old white female who presents for breast evaluation. She had a bilateral mammogram performed on 431. This was benign BIRADS 2. In the past she has undergone a stereotactic core biopsy of the right breast which was benign. The patient states that approximately a month ago she did have some clear discharge from her left nipple area. She has not had any blood and no evidence of any infection. She is not complaining of any pain in her breasts. She is not complaining of any lumps or masses in her breasts. Approximately a week ago she did experience some discomfort in her right breast which has since resolved. This was in the lateral aspect of the breast. She is uncertain that this may have represented chest wall tenderness rather than breast tenderness. Family history: 1. Mother endometrial cancer 2. Patient endometrial cancer, 2016 Hormonal History: menarche: 11 , bresat fed: none, first born at 20 menopause: 56, Hysterectomy at 66 for endometrial cancer, took ovaries BCP: 5 months hormones: none Surgical history: 1. Hysterectomy bilateral oophrectomy/post op had bleeding 2. 3 C sections 3. right ankle Medical history: 1. Pulmonary embolism bilateral/MTWFR 2. Afib 3. HTN Social History: smoke: none alcohol: none drugs: none - Constitutional Constitutional: Denies chills, Denies fever - EENT Comment: wears glasses, astigmatism Eyes: denies blurred vision, denies pain Ears: deny: decreased hearing, tinnitus Ears, nose, mouth and throat: Denies headache, Denies sore throat - Breasts Breasts: bilateral: as per HPI - Cardiovascular Comment: Afib - Respiratory Comment: MTFR history of pulmonary embolism - Gastrointestinal Gastrointestinal: Denies abdominal pain, Denies diarrhea, Denies nausea, Denies vomiting - Genitourinary (Female) Comment: follows with Dr. Osorio Genitourinary: Reports hematuria, Denies dysuria - Menstruation Menstruation: Reports post hysterectomy - Musculoskeletal Comment: arthritis Musculoskeletal: Denies myalgias - Integumentary Comment: psoriasis - Neurological Neurological: Denies numbness, Denies weakness - Psychiatric Psychiatric: Reports anxiety - Endocrine Comment: fluid retention, diabetes Endocrine: Reports fatigue, Reports weight change - Hematologic/Lymphatic Comment: coumadin - Allergic/Immunologic Allergic/Immunologic: Reports seasonal allergies Past Medical History Past Medical History: Asthma, Diabetes Mellitus, Hypertension, Pulmonary Embolus (PE) Additional Past Medical History / Comment(s): MTHFR gene mutation History of Any Multi-Drug Resistant Organisms: None Reported Past Surgical History: Breast Surgery, Section, Hysterectomy, Orthopedic Surgery Additional Past Surgical History / Comment(s): RIGHT ANKLE-PINS AND PLATE breast biopsy Past Anesthesia/Blood Transfusion Reactions: No Reported Reaction Additional Past Anesthesia/Blood Transfusion Reaction / Comment(s): no hx blood transfusion Past Psychological History: No Psychological Hx Reported Smoking Status: Never smoker Past Alcohol Use History: Rare Additional Past Alcohol Use History / Comment(s): Patient denies any history of smoking, medical marijuana, marijuana, street drug or alcohol use. 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 Past Drug Use History: None Reported - Past Family History Mother Family Medical History: No Reported History Additional Family Medical History / Comment(s): Mother at age 88 from sepsis. Brother(s) Family Medical History: Myocardial Infarction (CT) Additional Family Medical History / Comment(s): Brother at age 49 from myocardial infarction. Father Additional Family Medical History / Comment(s): Father at age 57 from a myocardial infarction. Sister(s) Additional Family Medical History / Comment(s): He has one sister alive but has never been tested for MTHFR gene mutation. Son(s) Additional Family Medical History / Comment(s): She has 2 sons and 1 daughter with no major medical problems. Medications and Allergies Home Medications Medication Instructions Recorded Confirmed Type Warfarin [Coumadin] 2.5 mg PO SUTUTHSA 09/10/16 12/18/18 History Warfarin [Coumadin] 5 mg PO MOWEFR 09/10/16 12/18/18 History metFORMIN HCL [Glucophage] 500 mg PO BID 09/10/16 12/18/18 History Albuterol Inhaler [Ventolin Hfa 1 - 2 puff INHALATION RT-Q6H PRN 09/11/16 12/18/18 History Inhaler] Metoprolol Tartrate [Lopressor] 25 mg PO BID #60 tab 11/30/16 12/18/18 Rx Amiodarone [Cordarone] 200 mg PO DAILY 03/29/17 12/18/18 History Furosemide [Lasix] 40 mg PO DAILY 03/29/17 12/18/18 History Allergies Allergy/AdvReac Type Severity Reaction Status Date / Time No Known Allergies Allergy Verified 12/18/18 10:51 Surgical - Exam Vital Signs Temp Pulse Resp BP Pulse Ox 98.3 F 65 18 95/67 96 12/18/18 10:42 12/18/18 10:42 12/18/18 10:42 12/18/18 10:42 12/18/18 10:42 BMI 53 - General obese - Eyes normal ocular movement - ENT no hearing loss - Neck no masses, trachea midline - Respiratory normal respiratory effort, clear to auscultation - Cardiovascular Heart Sounds: normal: S1, S2 - Abdomen Abdomen: soft, non tender, no guarding, no rigid, no rebound - Integumentary swelling bilateral lower extremities, bilateral pitting edema of lower extremities - Neurologic no disoriented, no combative - Musculoskeletal difficulty with ambulation - Psychiatric oriented to time, oriented to person, oriented to place, speech is normal, memory intact breast exam: right breast: multipositional exam no dominate masses or nodules of concern, fibrocystic changes right axilla: no adenopathy of concern left breast: multipositional exam no dominate masses or nodules of concern, fibrocystic changes, no nipple discharge on examination left axilla: no adenopathy of concern bilateral fungal changes under both breast Results mammogram reviewed Assessment and Plan Assessment: Impression: 1. fibrocystic breast changes 2. 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 A fib 4. HTN 5. nipple discharge in the past resolved at this time 6. fungal infection under breast bilateral Plan: 1. Repeat bilateral mammogram in 1 year with physician exam at that time 2. To call sooner if any changes of concern 3. Nystatin 2 area fungal infection underneath the breast 4. Medical management of medical conditions CC: Dr. Ledesma
== END ==
LOC: WWCWWP 10:36
PROVIDERS: ATTEND Surgery
DX: Z53.9 Procedure and treatment not carried out, unspecified reason (principal)